=== PATIENT | male | born 1940 | race African-American/Black ===

== ENCOUNTER → 2017-07-17 | Outpatient (CLI) | payer MEDICARE, OTHER ==
--- NOTE | 2017-07-17 19:27 | US ---
EXAMINATION TYPE: US kidneys/renal and bladder DATE OF EXAM: 07/17/2017 COMPARISON: NONE CLINICAL HISTORY: R31.0 Gross hematuria x 2 episodes. EXAM MEASUREMENTS: Right Kidney: 8.8 x 4.9 x 3.1 cm Left Kidney: 9.2 x 4.8 x 5.3 cm Post Void Residual Volume: not assessed as patient was not aware of preparation Right Kidney: No hydronephrosis or masses seen Left Kidney: parallel hyperechoic foci in lower pole may indicate calcified vessel motta with posteri or shadowing Bladder: not prepped for assessment IMPRESSION: 1. Limited renal ultrasound appears without suspicious changes to account for hematuria. 2. Suspected vascular calcification left kidney. 3. Limitation due to preparation performed.
== END | disposition home or self-care (01) ==
LOC: RADUSWWP 09:39
PROVIDERS: ATTEND Urology
DX: R31.0 Gross hematuria (principal)
CPT/HCPCS: 76770

== ENCOUNTER 2019-06-03 11:47 | Inpatient (IN) | payer MEDICARE ==
[2019-06-03] MEDS ORDERED: cefTRIAXone IN SWFI 1,000 MG/10 ML SYRINGE IVP STA (12:28)
--- NOTE | 2019-06-03 12:33 | ED ---
General Adult HPI - General Chief complaint: Extremity Problem,Nontraumatic Stated complaint: foot infection Time Seen by Provider: 06/03/19 11:47 Source: patient, RN notes reviewed, old records reviewed Mode of arrival: ambulatory Limitations: no limitations - History of Present Illness Initial comments: This is a 78-year-old male who presents to emergency department complaining of a wound to the left first toe patient states about 3 weeks ago he dropped some plywood on it and since then it is not been healing. Patient states the pain is getting worse as well. Patient states he went to see Dr. Claros today and Dr. Claros sentiment wanted him to be admitted. Patient denies any fever or chills. Patient states the toe is more swollen there is a little blackness to the very tip of it and it is extremely tender to touch. Patient denies any other symptoms at this time. - Related Data Home Medications Medication Instructions Recorded Confirmed Meloxicam 15 mg PO DAILY 06/03/19 06/03/19 Allergies Allergy/AdvReac Type Severity Reaction Status Date / Time No Known Allergies Allergy Verified 06/03/19 12:46 Review of Systems ROS Statement: Those systems with pertinent positive or pertinent negative responses have been documented in the HPI. ROS Other: All systems not noted in ROS Statement are negative. Past Medical History Additional Past Medical History / Comment(s): Arthritis History of Any Multi-Drug Resistant Organisms: None Reported Past Surgical History: No Surgical Hx Reported Past Psychological History: No Psychological Hx Reported Smoking Status: Never smoker Past Alcohol Use History: Occasional Past Drug Use History: None Reported General Exam - General Exam Comments Initial Comments: GENERAL Patient is well-developed and well-nourished. Patient is in mild distress. EYES Patient's pupils are equal and round. Extraocular motion is intact SKIN Unremarkable NEURO The patient is alert and oriented 3 PYSCH Patient has normal interpersonal interactions. MUSCULOSKELETAL Patient's left first toe has a wound on the distal medial aspect of the toe there is a little eschar at the tip of the toe and the toe is red and extremely tender. Patient has good cap refill of the other toes. Limitations: no limitations Course Vital Signs 06/03/19 06/03/19 06/03/19 11:50 12:37 13:00 Temperature 97.4 F L 97.7 F Pulse Rate 72 70 72 Respiratory 20 17 15 Rate Blood Pressure 202/86 191/86 194/113 O2 Sat by Pulse 100 100 Oximetry 06/03/19 06/03/19 13:15 13:43 Temperature Pulse Rate 79 90 Respiratory 19 Rate Blood Pressure 180/76 172/82 O2 Sat by Pulse 98 Oximetry Medical Decision Making - Medical Decision Making Patient was given antibiotics for the infected toe. I spoke with Dr. Kendall agreed to admit the patient admitted the patient wrote admitting orders. - Lab Data Result diagrams: 06/03/19 12:56 06/03/19 12:56 Lab Results 06/03/19 06/03/19 06/03/19 Range/Units 12:56 12:56 12:56 WBC 8.4 (3.8-10.6) k/uL RBC 4.41 (4.30-5.90) m/uL Hgb 14.6 (13.0-17.5) gm/dL Hct 43.7 (39.0-53.0) % MCV 99.0 (80.0-100.0) fL MCH 33.0 (25.0-35.0) pg MCHC 33.3 (31.0-37.0) g/dL RDW 13.5 (11.5-15.5) % Plt Count 265 (150-450) k/uL Neutrophils % 66 % Lymphocytes % 19 % Monocytes % 6 % Eosinophils % 6 % Basophils % 1 % Neutrophils # 5.5 (1.3-7.7) k/uL Lymphocytes # 1.6 (1.0-4.8) k/uL Monocytes # 0.5 (0-1.0) k/uL Eosinophils # 0.5 (0-0.7) k/uL Basophils # 0.1 (0-0.2) k/uL PT 9.6 (9.0-12.0) sec INR 0.9 (<1.2) APTT 26.0 (22.0-30.0) sec Sodium 142 (137-145) mmol/L Potassium 5.4 H (3.5-5.1) mmol/L Chloride 110 H (98-107) mmol/L Carbon Dioxide 24 (22-30) mmol/L Anion Gap 8 mmol/L BUN 31 H (9-20) mg/dL Creatinine 1.45 H (0.66-1.25) mg/dL Est GFR (CKD-EPI)AfAm 53 (>60 ml/min/1.73 sqM) Est GFR (CKD-EPI)NonAf 46 (>60 ml/min/1.73 sqM) Glucose 97 (74-99) mg/dL Plasma Lactic Acid Varinder (0.7-2.0) mmol/L Calcium 9.8 (8.4-10.2) mg/dL Total Bilirubin 0.9 (0.2-1.3) mg/dL AST 21 (17-59) U/L ALT 16 (4-49) U/L Alkaline Phosphatase 84 (38-126) U/L Total Protein 8.4 H (6.3-8.2) g/dL Albumin 4.6 (3.5-5.0) g/dL 06/03/19 Range/Units 12:56 WBC (3.8-10.6) k/uL RBC (4.30-5.90) m/uL Hgb (13.0-17.5) gm/dL Hct (39.0-53.0) % MCV (80.0-100.0) fL MCH (25.0-35.0) pg MCHC (31.0-37.0) g/dL RDW (11.5-15.5) % Plt Count (150-450) k/uL Neutrophils % % Lymphocytes % % Monocytes % % Eosinophils % % Basophils % % Neutrophils # (1.3-7.7) k/uL Lymphocytes # (1.0-4.8) k/uL Monocytes # (0-1.0) k/uL Eosinophils # (0-0.7) k/uL Basophils # (0-0.2) k/uL PT (9.0-12.0) sec INR (<1.2) APTT (22.0-30.0) sec Sodium (137-145) mmol/L Potassium (3.5-5.1) mmol/L Chloride (98-107) mmol/L Carbon Dioxide (22-30) mmol/L Anion Gap mmol/L BUN (9-20) mg/dL Creatinine (0.66-1.25) mg/dL Est GFR (CKD-EPI)AfAm (>60 ml/min/1.73 sqM) Est GFR (CKD-EPI)NonAf (>60 ml/min/1.73 sqM) Glucose (74-99) mg/dL Plasma Lactic Acid Varinder 1.7 (0.7-2.0) mmol/L Calcium (8.4-10.2) mg/dL Total Bilirubin (0.2-1.3) mg/dL AST (17-59) U/L ALT (4-49) U/L Alkaline Phosphatase (38-126) U/L Total Protein (6.3-8.2) g/dL Albumin (3.5-5.0) g/dL Disposition Clinical Impression: Toe infection Disposition: ADMITTED IP TO THIS HOSP Referrals: Alexi Bailey MD [Primary Care Provider] - 1-2 days Time of Disposition: 13:50
[2019-06-03] MEDS ORDERED: hydrALAZINE HCL 20 MG/ML 1 ML VIAL IVP STA ×2 (12:39→13:23)
[2019-06-03 13:08] LABS: Basophils # (A) 0.1 k/uL (0-0.2); Basophils % (A) 1 %; Eosinophils # (A) 0.5 k/uL (0-0.7); Eosinophils % (A) 6 %; HCT 43.7 % (39.0-53.0); HGB 14.6 gm/dL (13.0-17.5); Lymphocytes # (A) 1.6 k/uL (1.0-4.8); Lymphocytes % (A) 19 %; MCHC 33.3 g/dL (31.0-37.0); Monocytes # (A) 0.5 k/uL (0-1.0); Monocytes % (A) 6 %; Neutrophils # (A) 5.5 k/uL (1.3-7.7); Neutrophils % (A) 66 %; Platelet Count 265 k/uL (150-450); RBC 4.41 m/uL (4.30-5.90); RDW 13.5 % (11.5-15.5); WBC 8.4 k/uL (3.8-10.6)
[2019-06-03 13:16] LABS: INR 0.9 (<1.2); Prothrombin Time 9.6 sec (9.0-12.0)
[2019-06-03 13:20] LABS: Albumin 4.6 g/dL (3.5-5.0); Calcium 9.8 mg/dL (8.4-10.2); Potassium 5.4 mmol/L (3.5-5.1); Total Bilirubin 0.9 mg/dL (0.2-1.3); Total Protein 8.4 g/dL (6.3-8.2)
[2019-06-03] MEDS ORDERED: HYDROmorphone 0.5 MG/0.5 ML SYRINGE IVP STA (13:23)
--- NOTE | 2019-06-03 13:33 | XR ---
EXAMINATION TYPE: XR toes LT DATE OF EXAM: 06/03/2019 COMPARISON: NONE HISTORY: First toe wound and swelling TECHNIQUE: 3 views submitted left first toe FINDINGS: There is a soft tissue irregularity suggestive of an ulceration. Cortical margins intact wi th no destructive change. No acute fracture. Arthropathy of the first MTP. IMPRESSION: 1. Soft tissue ulceration with no diagnostic evidence of osteomyelitis or fracture.
[2019-06-03] MEDS ORDERED: SODIUM CHLORIDE 0.9% 1,000 ML IV ONE (13:50)
[2019-06-03] MEDS ORDERED: VANCOMYCIN IV PER PHARMACY 1 EACH MISC MISCELLANE PRN (13:51)
[2019-06-03] MEDS ORDERED: VANCOMYCIN 1,250 MG in SODIUM CHLORIDE 0.9% 250 ML IVPB STA (13:56)
[2019-06-03 21:37] LABS: Hemoglobin A1C 6.1 % (4.0-6.0)
--- NOTE | 2019-06-03 22:02 | P.HPIM ---
History of Present Illness This is a pleasant 78 years old -[place] male with significant past medical history of arthritis, gout, status post stent to the left lower extremity about 10 years ago, never smoked, drinks alcohol daily. He is a patient of Dr. Keane. . He was sent by his scientific database curator Dr. Claros for infected wound secondary to trauma to his left big toe.patient's states about 3 weeks ago he had a trauma when a plywood fell on his foot and entered the tip of his first big toe, and gradually was getting more effected right and swollen with tenderness. also patient is complaining of from gout in his right first metatarsal tarsal joint, which is going on for 6 months on and off. He denies chest pain or dyspnea, no fever. No change in urine or bowel habits. No nausea vomiting. patient states he never smoked however he drinks about 3-4 ounces of whisky every night. No illicit drugs Vitas looks stable and temperature is 97.4. labs reviewed showing unremarkable CBC, INR, Liver enz, and BMP except increased creatinine to 1.4 , unknown baseline. pt was started on iv vanco and ceftriaxone, and normal saline at 75 ml/hr Review of Systems CONSTITUTIONAL: No fever, no malaise, no fatigue. HEENT: No recent visual problems or hearing problems. Denied any sore throat. CARDIOVASCULAR: No orthopnea, PND, no palpitations, no syncope. PULMONARY: No shortness of breath, no cough, no hemoptysis. GASTROINTESTINAL: No diarrhea, no nausea, no vomiting, no abdominal pain. Normoactive bowel sounds. NEUROLOGICAL: No headaches, no weakness, no numbness. HEMATOLOGICAL: Denies any bleeding or petechiae. GENITOURINARY: Denies any burning micturition, frequency, or urgency. MUSCULOSKELETAL/RHEUMATOLOGICAL: Denies any joint pain, swelling, or any muscle pain. ENDOCRINE: Denies any polyuria or polydipsia. Past Medical History Additional Past Medical History / Comment(s): Arthritis History of Any Multi-Drug Resistant Organisms: None Reported Past Surgical History: No Surgical Hx Reported Past Psychological History: No Psychological Hx Reported Smoking Status: Never smoker Past Alcohol Use History: Occasional Past Drug Use History: None Reported - Past Family History Father Family Medical History: Myocardial Infarction (AK) Additional Family Medical History / Comment(s): Father of a AK when pt was 7 yrs old. Pt cannot recall at what age his father . Mother Family Medical History: No Reported History Medications and Allergies Home Medications Medication Instructions Recorded Confirmed Type Meloxicam 15 mg PO DAILY 06/03/19 06/03/19 History Allergies Allergy/AdvReac Type Severity Reaction Status Date / Time No Known Allergies Allergy Verified 06/03/19 12:46 Physical Exam Vitals: Vital Signs Temp Pulse Resp BP Pulse Ox 06/03/19 11:50 97.4 F L 72 20 202/86 100 Intake and Output 06/02/19 06/03/19 06/03/19 22:59 06:59 14:59 Other: Weight 61.235 kg GENERAL: The patient is alert and oriented x3, not in any acute distress. Well developed, well nourished. HEENT: Pupils are round and equally reacting to light. EOMI. No scleral icterus. No conjunctival pallor. Normocephalic, atraumatic. No pharyngeal erythema. No thyromegaly. CARDIOVASCULAR: S1 and S2 present. No murmurs, rubs, or gallops. PULMONARY: Chest is clear to auscultation, no wheezing or crackles. ABDOMEN: Soft, nontender, nondistended, normoactive bowel sounds. No palpable organomegaly. MUSCULOSKELETAL: No joint swelling or deformity. EXTREMITIES: No cyanosis, clubbing, or pedal edema. Toes exam as below: - left big toe showing about 1 centimeter ulcer on the tip of the left toe with some purulent discharge and surrounding redness, swelling and tenderness. Not much more. -right foot showing slightly inflamed right first tarsometatarsal joint NEUROLOGICAL: Gross neurological examination did not reveal any focal deficits. SKIN: No rashes. No petechiae Results CBC & Chem 7: 06/03/19 12:56 06/03/19 12:56 Assessment and Plan Assessment: Left big toe infected ulcer secondary to trauma about 3 weeks ago Cellulitis of the distal medial left foot related to his ulcer Daily alcohol drinker at-risk of alcohol withdrawal DANA, unknown baseline Gout History of stent in his left lower extremity about 10 years ago as per patient Plan: This is a pleasant 78 years old male who presents with cellulitis and infected left first toe ulcer. Possible Dr. Claros, consult Dr. Caro from infectious disease. Continue with antibiotics as per ID team recommendation. Follow-up culture results. Pain management Labs and medication were reviewed.. Continue same treatment. Continue with symptomatic treatment. Resume home medication. Monitor lytes and vitals. DVT and GI prophylaxis. Further recommendations of the clinical course of the patient DVT prophylaxis: Subcutaneous heparin GI Prophylaxis: Pepcid PT/OT: Pending Prognosis is guarded
[2019-06-03] MEDS: METOPROLOL TARTRATE 12.5 MG TAB PO SCH (22:14)
[2019-06-03] MEDS: THIAMINE 100 MG TAB PO SCH (22:15)
--- NOTE | 2019-06-04 08:01 | P.PN ---
Subjective This is a pleasant 78 years old -[place] male with significant past medical history of arthritis, gout, status post stent to the left lower extremity about 10 years ago, never smoked, drinks alcohol daily. He is a patient of Dr. Keane. . He was sent by his developer prover upholstering Dr. Claros for infected wound secondary to trauma to his left big toe.patient's states about 3 weeks ago he had a trauma when a plywood fell on his foot and entered the tip of his first big toe, and gradually was getting more effected right and swollen with tenderness. also patient is complaining of from gout in his right first metatarsal tarsal joint, which is going on for 6 months on and off. He denies chest pain or dyspnea, no fever. No change in urine or bowel habits. No nausea vomiting. patient states he never smoked however he drinks about 3-4 ounces of whisky every night. No illicit drugs Vitas looks stable and temperature is 97.4. labs reviewed showing unremarkable CBC, INR, Liver enz, and BMP except increased creatinine to 1.4 , unknown baseli ne. pt was started on iv vanco and ceftriaxone, and normal saline at 75 ml/hr 06/04/2019 Patient is fully awake and oriented in bed, he states that he has less pain in his foot. He denies chest pain or dyspnea.no other problems. Vitas looks stable and patient is afebrile. His blood pressure is on the high side and antihypertensive. Yesterday his creatinine was elevated to 1.45, potassium 5.4. Unknown baseline creatinine and patient does not know if he has kidney problem. Patient also got contrast yesterday. We'll ask for cigar brander for further evaluation. Bladder scan yesterday was 300. Follow-up postvoid residual today. Podiatry and infectious disease were consult. review of systems CONSTITUTIONAL: No fever, no malaise, no fatigue. HEENT: No recent visual problems or hearing problems. Denied any sore throat. CARDIOVASCULAR: No orthopnea, PND, no palpitations, no syncope. PULMONARY: No shortness of breath, no cough, no hemoptysis. GASTROINTESTINAL: No diarrhea, no nausea, no vomiting, no abdominal pain. Normoactive bowel sounds. NEUROLOGICAL: No headaches, no weakness, no numbness. HEMATOLOGICAL: Denies any bleeding or petechiae. GENITOURINARY: Denies any burning micturition, frequency, or urgency. MUSCULOSKELETAL/RHEUMATOLOGICAL: Denies any joint pain, swelling, or any muscle pain. ENDOCRINE: Denies any polyuria or polydipsia. Objective - Vital Signs Vital signs: Vital Signs Temp 97.8 F 06/04/19 06:00 Pulse 72 06/04/19 06:00 Resp 20 06/04/19 06:00 BP 164/69 06/04/19 06:00 Pulse Ox 98 06/04/19 06:00 Intake & Output 06/03/19 06/04/19 06/04/19 18:59 06:59 18:59 Intake Total 250 Output Total 625 Balance 250 -625 Weight 61.235 kg Intake: IV 10 Invasive Line 1 10 Oral 240 Output: Urine 625 Other: Voiding Method Toilet Toilet Urinal Urinal - Exam GENERAL: The patient is alert and oriented x3, not in any acute distress. Well developed, well nourished. HEENT: Pupils are round and equally reacting to light. EOMI. No scleral icterus. No conjunctival pallor. Normocephalic, atraumatic. No pharyngeal erythema. No thyromegaly. CARDIOVASCULAR: S1 and S2 present. No murmurs, rubs, or gallops. PULMONARY: Chest is clear to auscultation, no wheezing or crackles. ABDOMEN: Soft, nontender, nondistended, normoactive bowel sounds. No palpable organomegaly. MUSCULOSKELETAL: No joint swelling or deformity. EXTREMITIES: No cyanosis, clubbing, or pedal edema. Toes exam as below: - left big toe showing about 1 centimeter ulcer on the tip of the left toe with some purulent discharge and surrounding redness, swelling and tenderness. Not much more. -right foot showing slightly inflamed right first tarsometatarsal joint NEUROLOGICAL: Gross neurological examination did not reveal any focal deficits. SKIN: No rashes. No petechiae - Labs CBC & Chem 7: 06/03/19 12:56 06/03/19 12:56 Labs: Abnormal Lab Results - Last 24 Hours (Table) 06/03/19 06/03/19 Range/Units 12:56 12:56 Potassium 5.4 H (3.5-5.1) mmol/L Chloride 110 H (98-107) mmol/L BUN 31 H (9-20) mg/dL Creatinine 1.45 H (0.66-1.25) mg/dL Hemoglobin A1c 6.1 H (4.0-6.0) % Total Protein 8.4 H (6.3-8.2) g/dL Assessment and Plan Assessment: Left big toe infected ulcer secondary to trauma about 3 weeks ago Cellulitis of the distal medial left foot related to his ulcer Daily alcohol drinker at-risk of alcohol withdrawal DANA, unknown baseline hyperkalemia, mild Gout History of stent in his left lower extremity about 10 years ago as per patient Plan: This is a pleasant 78 years old male who presents with cellulitis and infected left first toe ulcer. consults Dr. Claros, consult Dr. Caro from infectious disease. Continue with antibiotics as per ID team recommendation. Follow-up culture results. Pain management. Also last for consultation for nephrology as patient got contrast review of Versed kidney problem of high creatinine. Labs and medication were reviewed.. Continue same treatment. Continue with symptomatic treatment. Resume home medication. Monitor lytes and vitals. DVT and GI prophylaxis. Further recommendations of the clinical course of the patient DVT prophylaxis: Subcutaneous heparin GI Prophylaxis: Pepcid PT/OT: Pending Prognosis is guarded
[2019-06-04 08:19] LABS: Basophils # (A) 0.1 k/uL (0-0.2); Basophils % (A) 1 %; Eosinophils # (A) 0.4 k/uL (0-0.7); Eosinophils % (A) 6 %; HCT 42.3 % (39.0-53.0); HGB 13.6 gm/dL (13.0-17.5); Lymphocytes # (A) 1.3 k/uL (1.0-4.8); Lymphocytes % (A) 19 %; MCHC 32.1 g/dL (31.0-37.0); MCV 99.7 fL (80.0-100.0); Mean Platelet Volume 8.2; Monocytes # (A) 0.5 k/uL (0-1.0); Monocytes % (A) 8 %; Neutrophils # (A) 4.5 k/uL (1.3-7.7); Neutrophils % (A) 65 %; Platelet Count 265 k/uL (150-450); RBC 4.24 m/uL (4.30-5.90); RDW 13.6 % (11.5-15.5)
[2019-06-04 08:24] LABS: Potassium 4.9 mmol/L (3.5-5.1)
[2019-06-04] MEDS: METOPROLOL TARTRATE 12.5 MG TAB PO SCH ×2 (08:56→20:08)
[2019-06-04] MEDS: amLODIPine 5 MG TAB PO SCH (08:56)
[2019-06-04] MEDS: THIAMINE 100 MG TAB PO SCH (08:57)
[2019-06-04] MEDS: DEXTROSE 5%-0.9% NACL 1,000 ML IV SCH ×2 (08:57→20:08)
[2019-06-04] MEDS ORDERED: amLODIPine 2.5 MG TAB PO SCH (09:00)
[2019-06-04] MEDS: VANCOMYCIN 1,250 MG in SODIUM CHLORIDE 0.9% 250 ML IVPB SCH (10:46)
[2019-06-04 11:38] VITALS: BMI 18.8
--- NOTE | 2019-06-04 14:28 | P.CONS ---
History of Present Illness - Reason for Consult Consult date: 06/04/19 infected big toe ulcer - History of Present Illness This is a 78-year-old -[place] male who gives history that 3 weeks ago he dropped a board on his left great toe causing a wound and it "busted open." He denies having any fever or chills. He had an appointment with Dr. Claros for the first time regarding this wound and Dr. Claros sent him into the hospital for further evaluation and treatment. Patient was found to be afebrile, white count 7.0, BUN 23 and creatinine 1.34. Hemoglobin A1c 6.1, albumin 4.6. Total x-ray showed ulceration, no osteomyelitis or fracture. Patient has been started on Rocephin and vancomycin. Patient has history of stenting of the left lower extremity approximate 10 years ago. Review Of Systems: Constitutional: No fever, no chills, no night sweats. No weight change. No wea kness, fatigue or lethargy. No daytime sleepiness. EENT: No headache. No blurred vision or double vision, no loss of vision. No loss of Hearing, no ringing in the ears, no dizziness. No nasal drainage or congestion. No epistaxis. No sore throat. Lungs: No shortness of breath, cough, no sputum production. No wheezing. Cardiovascular: No chest pain, no lower extremity edema. No palpitations. No paroxysmal nocturnal dyspnea. No orthopnea. No lightheadedness or dizziness. No syncopal episodes. Abdominal: No abdominal pain. No nausea, vomiting. No diarrhea. No constipation. No bloody or tarry stools. No loss of appetite. Genitourinary: No dysuria, increased frequency, urgency. No urinary retention. Musculoskeletal: No myalgias. No muscle weakness, no gait dysfunction, no freq uent falls. No back pain. No neck pain. Integumentary: reports wounds, no lesions. No rash or pruritus. No unusual bruising. No change in hair or nails. Neurologic: No aphasia. No facial droop. No change in mentation. No head injury. No headache. No paralysis. No paresthesia. Psychiatric: No depression. No anxiety. No mood swings. Endocrine: No abnormal blood sugars. No weight change. No excessive sweating or thirst. No cold intolerance. Past Medical History Past Medical History: Memory Impairment, Osteoarthritis (OA), Vascular Disorder Additional Past Medical History / Comment(s): Arthritis History of Any Multi-Drug Resistant Organisms: None Reported Year Discovered:: 2008? MDRO Source:: L 5th toe Past Surgical History: No Surgical Hx Reported Additional Past Surgical History / Comment(s): Cystoscopy, L wrist injury with surgery, L knee open surgery for cartlidge repair, L leg stent done in [place], [place], bilateral cataracts removed. Past Anesthesia/Blood Transfusion Reactions: No Reported Reaction Past Psychological History: No Psychological Hx Reported Smoking Status: Former smoker Past Alcohol Use History: Occasional Additional Past Alcohol Use History / Comment(s): patient is a smoker one pack per day for 50 years and quit 10 years ago. He drinks 3 ounces of liquor every day. He lives in his own home and cares for his 2 grandsons. There are no pets in the home. He works in [employer]. He served in the in [employer]. No recent travel. Past Drug Use History: None Reported - Past Family History Father Family Medical History: Myocardial Infarction ([place]) Additional Family Medical History / Comment(s): Father of a [place] when pt was 7 yrs old. Pt cannot recall at what age his father . Mother Family Medical History: No Reported History Medications and Allergies Home Medications Medication Instructions Recorded Confirmed Type Meloxicam 15 mg PO DAILY 06/03/19 06/03/19 History Allergies Allergy/AdvReac Type Severity Reaction Status Date / Time No Known Allergies Allergy Verified 06/03/19 12:46 Physical Exam Vitals: Vital Signs Temp Pulse Pulse Resp BP BP Pulse Ox 06/04/19 06:00 97.8 F 72 20 164/69 98 06/03/19 21:32 97.7 F 88 15 165/76 98 06/03/19 16:00 17 06/03/19 14:58 98.6 F 96 19 156/69 95 06/03/19 14:52 98.6 F 96 156/69 96 Intake and Output 06/03/19 06/04/19 06/04/19 22:59 06:59 14:59 Intake Total 240 200 Output Total 250 375 Balance -10 -375 200 Intake: Oral 240 200 Output: Urine 250 375 Other: Voiding Method Toilet Urinal Weight 61.235 kg 61.235 kg Gen: This is a 78-year-old -[place] male. He is resting in bed and it and appears to be in no acute distress. HEENT: Head is atraumatic, normocephalic. Pupils equal, round. Sclerae is anicteric.oral mucous membranes are moist. Patient is edentulous. No thrush noted. NECK: Supple. No JVD. No lymphadenopathy. No thyromegaly. LUNGS: Clear to auscultation. No wheezes or rhonchi. No intercostal retractions. HEART: Regular rate and rhythm. No murmur. ABDOMEN: Soft. Bowel sounds are present. No masses. No tenderness. EXTREMITIES: No pedal edema. No calf tenderness.left great toe has large old ulcer on the distal area. Dorsalis pedis +2 bilaterally. NEUROLOGICAL: Patient is awake, alert and oriented x3. Cranial nerves 2 through 12 are grossly intact. Results Results: Laboratory Results WBC 7.0 k/uL (3.8-10.6) 06/04/19 07:33 RBC 4.24 m/uL (4.30-5.90) L 06/04/19 07:33 Hgb 13.6 gm/dL (13.0-17.5) 06/04/19 07:33 Hct 42.3 % (39.0-53.0) 06/04/19 07:33 MCV 99.7 fL (80.0-100.0) 06/04/19 07:33 MCH 32.0 pg (25.0-35.0) 06/04/19 07:33 MCHC 32.1 g/dL (31.0-37.0) 06/04/19 07:33 RDW 13.6 % (11.5-15.5) 06/04/19 07:33 Plt Count 265 k/uL (150-450) 06/04/19 07:33 Neutrophils % 65 % 06/04/19 07:33 Lymphocytes % 19 % 06/04/19 07:33 Monocytes % 8 % 06/04/19 07:33 Eosinophils % 6 % 06/04/19 07:33 Basophils % 1 % 06/04/19 07:33 Neutrophils # 4.5 k/uL (1.3-7.7) 06/04/19 07:33 Lymphocytes # 1.3 k/uL (1.0-4.8) 06/04/19 07:33 Monocytes # 0.5 k/uL (0-1.0) 06/04/19 07:33 Eosinophils # 0.4 k/uL (0-0.7) 06/04/19 07:33 Basophils # 0.1 k/uL (0-0.2) 06/04/19 07:33 PT 9.6 sec (9.0-12.0) 06/03/19 12:56 INR 0.9 (<1.2) 06/03/19 12:56 APTT 26.0 sec (22.0-30.0) 06/03/19 12:56 Sodium 140 mmol/L (137-145) 06/04/19 07:33 Potassium 4.9 mmol/L (3.5-5.1) 06/04/19 07:33 Chloride 110 mmol/L (98-107) H 06/04/19 07:33 Carbon Dioxide 22 mmol/L (22-30) 06/04/19 07:33 Anion Gap 8 mmol/L 06/04/19 07:33 BUN 23 mg/dL (9-20) H 06/04/19 07:33 Creatinine 1.34 mg/dL (0.66-1.25) H 06/04/19 07:33 Est GFR (CKD-EPI)AfAm 59 (>60 ml/min/1.73 sqM) 06/04/19 07:33 Est GFR (CKD-EPI)NonAf 51 (>60 ml/min/1.73 sqM) 06/04/19 07:33 Glucose 93 mg/dL (74-99) 06/04/19 07:[address] Glu mg/dL 128 06/03/19 12:56 Hemoglobin A1c 6.1 % (4.0-6.0) H 06/03/19 12:56 Plasma Lactic Acid Varinder 1.7 mmol/L (0.7-2.0) 06/03/19 12:56 Calcium 9.0 mg/dL (8.4-10.2) 06/04/19 07:33 Total Bilirubin 0.9 mg/dL (0.2-1.3) 06/03/19 12:56 AST 21 U/L (17-59) 06/03/19 12:56 ALT 16 U/L (4-49) 06/03/19 12:56 Alkaline Phosphatase 84 U/L (38-126) 06/03/19 12:56 Total Protein 8.4 g/dL (6.3-8.2) H 06/03/19 12:56 Albumin 4.6 g/dL (3.5-5.0) 06/03/19 12:56 CBC & Chem 7: 06/04/19 07:33 06/04/19 07:33 Labs: Abnormal Lab Results - Last 24 Hours (Table) 06/03/19 06/04/19 06/04/19 Range/Units 12:56 07:33 07:33 RBC 4.24 L (4.30-5.90) m/uL Chloride 110 H (98-107) mmol/L BUN 23 H (9-20) mg/dL Creatinine 1.34 H (0.66-1.25) mg/dL Hemoglobin A1c 6.1 H (4.0-6.0) % Assessment and Plan Plan: this is a 78-year-old -[place] male who presents to hospital with traumatic injury to the left great toe with ulceration. Plain film x-rays did not show any osteomyelitis or fracture. Bone scan will be ordered to rule out osteomyelitis. Patient is currently on Rocephin and vancomycin. Wound culture to be obtained if possible. Continue supportive care. Further recommendations as patient presses. The above dictated assessment and findings were discussed with Dr. Caro. The impression and plan of care have been directed as dictated. Melody Fuller nurse practitioner acting as scribe for Dr. Caro.
--- NOTE | 2019-06-04 15:59 | P.CON ---
Consult Note - . Consult date: 06/04/19 Assessment/Plan:: This is a 78-year-old -[place] male who gives history that 3 weeks ago he dropped a board on his left great toe causing a wound and it "busted open." He denies having any fever or chills. He had an appointment with Dr. Claros for the first time regarding this wound and Dr. Claros sent him into the hospital for further evaluation and treatment. Patient was found to be afebrile, white count 7.0, BUN 23 and creatinine 1.34. Hemoglobin A1c 6.1, albumin 4.6. Total x-ray showed ulceration, no osteomyelitis or fracture. Patient has been started on Rocephin and vancomycin. Patient has history of stenting of the left lower e xtremity approximate 10 years ago. please see the consult note as dictated by nurse practitioner Mrs. Melody Fuller. with pleasant 70-year-old male has a known history of some peripheral vascular disease with history of prior hector of the lower extremities when he was 7 years of age. He relates that he was working when he dropped a board onto his left great toe. Then after that he did suffer a fall where he had an abrasion to his left knee hurt the toe again. Because the abnormalities he did seek care and was sent to hospital for further evaluation. X-rays without fractu and is not able to elucidate osteomyelitis. However bone scan has been requested. Based on the history and by Local care will be utilized with therahoneywhich can be changed daily for now. Elevation of the foot rest is helpful. Arterial Dopplers will be requested to ensure that he has adequate flow. He may need vascular evaluation afterwards. Multivitamin with zinc is added in ensure adequate protein. I agree with evaluation, assessment and plan as dictated by nurse practitioner Mrs. Melody Fuller.
[2019-06-04] MEDS ORDERED: MULTIVITAMINS, THERA 1 EACH TAB PO SCH (16:15)
--- NOTE | 2019-06-04 17:14 | P.GSHP ---
History of Present Illness H&P Date: 06/04/19 Chief Complaint: avascular ulcer left hallux 78-year-old male seen at bedside today after review of chart. Was seen in my office yesterday for treatment of a partially avulsed left hallux with possible gangrenous changes distally. Patient drops of fluid on his foot proximally 3 weeks ago and suffered an injury. Since then the toe has been bleeding and has not healed. It is progressing into a painful swollen digit. Patient did see Dr. Patton for several weeks ago for peripheral arterial disease patient has what appears to be or runoff with an JAYA of 0.46 on the left lower extremity with possible profundus occlusion. This was the report from Dr. Patton's office at was available to me yesterday in my office. She was scheduled to see Dr. Patton for possible arteriogram later in the year. Due to the patient's clinical presentation and possible gangrenous changes left hallux she was told to go to emergency room for evaluation and admission. Purpose of this was to treat the underlying infection and limit any a vascular damage if possible. Past Medical History Past Medical History: Memory Impairment, Osteoarthritis (OA), Vascular Disorder Additional Past Medical History / Comment(s): Arthritis History of Any Multi-Drug Resistant Organisms: None Reported Date of last positivie culture/infection: 2008? MDRO Source:: L 5th toe Past Surgical History: No Surgical Hx Reported Additional Past Surgical History / Comment(s): Cystoscopy, L wrist injury with surgery, L knee open surgery for cartlidge repair, L leg stent done in [place], [place], bilateral cataracts removed. Past Anesthesia/Blood Transfusion Reactions: No Reported Reaction Past Psychological History: No Psychological Hx Reported Smoking Status: Former smoker Past Alcohol Use History: Occasional Additional Past Alcohol Use History / Comment(s): patient is a smoker one pack per day for 50 years and quit 10 years ago. He drinks 3 ounces of liquor every day. He lives in his own home and cares for his 2 grandsons. There are no pets in the home. He works in [employer]. He served in the in [employer]. No recent travel. Past Drug Use History: None Reported - Past Family History Father Family Medical History: Myocardial Infarction ([place]) Additional Family Medical History / Comment(s): Father of a [place] when pt was 7 yrs old. Pt cannot recall at what age his father . Mother Family Medical History: No Reported History Medications and Allergies Home Medications Medication Instructions Recorded Confirmed Type Meloxicam 15 mg PO DAILY 06/03/19 06/03/19 History Allergies Allergy/AdvReac Type Severity Reaction Status Date / Time No Known Allergies Allergy Verified 06/03/19 12:46 Surgical - Exam Vital Signs Temp Pulse Resp BP Pulse Ox 97.4 F L 72 20 202/86 100 06/03/19 11:50 06/03/19 11:50 06/03/19 11:50 06/03/19 11:50 06/03/19 11:50 - Cardiovascular pedal pulses diminished bilateral no digital hair - Integumentary full-thickness ulcer on the dorsum of the left hallux with edema erythema ext ending to the metatarsophalangeal joint. Patient has necrotic changes increasing since yesterday on the distal tip of his digit. - Musculoskeletal diminished range of motion ankle joint bilateral all inverters everters plantar flexors dorsiflexors grossly intact symmetrical bilateral Results - Labs 06/04/19 07:33 06/04/19 07:33 Abnormal Lab Results - Last 24 Hours (Table) 06/03/19 06/04/19 06/04/19 Range/Units 12:56 07:33 07:33 RBC 4.24 L (4.30-5.90) m/uL Chloride 110 H (98-107) mmol/L BUN 23 H (9-20) mg/dL Creatinine 1.34 H (0.66-1.25) mg/dL Hemoglobin A1c 6.1 H (4.0-6.0) % Microbiology - Last 24 Hours (Table) 06/03/19 12:56 Blood Culture - Preliminary Blood No Growth after 24 hours Diabetes panel 06/03/19 06/04/19 Range/Units 12:56 07:33 Sodium 140 (137-145) mmol/L Potassium 4.9 (3.5-5.1) mmol/L Chloride 110 H (98-107) mmol/L Carbon Dioxide 22 (22-30) mmol/L BUN 23 H (9-20) mg/dL Creatinine 1.34 H (0.66-1.25) mg/dL Glucose 93 (74-99) mg/dL Hemoglobin A1c 6.1 H (4.0-6.0) % Calcium 9.0 (8.4-10.2) mg/dL Calcium panel 06/04/19 Range/Units 07:33 Calcium 9.0 (8.4-10.2) mg/dL Pituitary panel 06/04/19 Range/Units 07:33 Sodium 140 (137-145) mmol/L Potassium 4.9 (3.5-5.1) mmol/L Chloride 110 H (98-107) mmol/L Carbon Dioxide 22 (22-30) mmol/L BUN 23 H (9-20) mg/dL Creatinine 1.34 H (0.66-1.25) mg/dL Glucose 93 (74-99) mg/dL Calcium 9.0 (8.4-10.2) mg/dL Adrenal panel 06/04/19 Range/Units 07:33 Sodium 140 (137-145) mmol/L Potassium 4.9 (3.5-5.1) mmol/L Chloride 110 H (98-107) mmol/L Carbon Dioxide 22 (22-30) mmol/L BUN 23 H (9-20) mg/dL Creatinine 1.34 H (0.66-1.25) mg/dL Glucose 93 (74-99) mg/dL Calcium 9.0 (8.4-10.2) mg/dL Assessment and Plan Assessment: non pressure ulcer left hallux with involvement of subcutaneous tissue Peripheral arterial disease with occlusive features left greater than right Plan: exam. After review of chart and discussing with patient we will begin local wound care with medical Honey in a dressing. Also suggest a consultation with vascular as patient does have positive occlusive disease on the left lower extremity per Dr. Patton's recent arterial studies. Agree with current IV treatment. With the consideration of possible occlusive disease to the left lower extremity the bone scan may not be of significant value at this time.
[2019-06-05] MEDS ORDERED: LORazepam 2 MG/ML INJ IV PRN ×3
[2019-06-05] MEDS: VANCOMYCIN 1,250 MG in SODIUM CHLORIDE 0.9% 250 ML IVPB SCH (08:03)
[2019-06-05] MEDS: MULTIVITAMINS, THERA 1 EACH TAB PO SCH (08:03)
[2019-06-05] MEDS: THIAMINE 100 MG TAB PO SCH (08:03)
[2019-06-05] MEDS: METOPROLOL TARTRATE 12.5 MG TAB PO SCH ×2 (08:03→20:03)
[2019-06-05] MEDS: amLODIPine 5 MG TAB PO SCH (08:03)
[2019-06-05 08:11] LABS: Basophils % (A) 1 %; Eosinophils # (A) 0.6 k/uL (0-0.7); Eosinophils % (A) 9 %; HCT 45.7 % (39.0-53.0); HGB 14.6 gm/dL (13.0-17.5); Lymphocytes # (A) 1.3 k/uL (1.0-4.8); Lymphocytes % (A) 19 %; MCV 100.1 fL (80.0-100.0); Mean Platelet Volume 8.1; Monocytes # (A) 0.5 k/uL (0-1.0); Monocytes % (A) 8 %; Neutrophils % (A) 61 %; Platelet Count 258 k/uL (150-450); RBC 4.57 m/uL (4.30-5.90); RDW 13.5 % (11.5-15.5); WBC 6.5 k/uL (3.8-10.6)
[2019-06-05 08:26] LABS: Calcium 9.3 mg/dL (8.4-10.2)
[2019-06-05 08:28] LABS: Potassium 5.1 mmol/L (3.5-5.1)
[2019-06-05] MEDS: DEXTROSE 5%-0.9% NACL 1,000 ML IV SCH ×2 (11:11→23:17)
--- NOTE | 2019-06-05 11:13 | NM ---
EXAMINATION TYPE: NM bone 3 phase DATE OF EXAM: 06/05/2019 COMPARISON: NONE HISTORY: Open wound on the left great toe. Triple phase bone scintigraphy was performed following the injection of 24.9 mCi Tc 99m MDP. Immedia te images and 3 hours post injection images acquired. FINDINGS: There is mild increased flow to the left foot. Pool images show some increased activity in the left g reat toe. Delayed static images show increased activity in the distal phalanges of both [address] on the left than the right. There is some mild increased activity in the first MTP joints bilater ally. IMPRESSION: I CANNOT EXCLUDE OSTEOMYELITIS OF THE DISTAL PHALANX OF THE LEFT GREAT TOE.
--- NOTE | 2019-06-05 11:27 | CONS ---
CONSULTATION REASON FOR CONSULT: Renal failure. HISTORY OF PRESENT ILLNESS: Patient is a 78-year-old male who was initially admitted to the hospital on 06/03/2019 for a wound on his left big toe. The patient follows up with Podiatry as outpatient. This was slowly getting worse with swelling and tenderness and pain. He denies any history of kidney diseases. His serum creatinine was 1.45 on admission, currently it is down to 1.15. No previous labs are available for comparison. At home, patient was taking meloxicam, which is now on hold. Currently, patient is maintained on ceftriaxone for antibiotics along with vancomycin. PAST MEDICAL HISTORY: Past medical history of osteoarthritis. PAST SURGICAL HISTORY: None. SOCIAL HISTORY: Negative for smoking, drug abuse or alcohol abuse. MEDICATIONS: Medications at home prior to admission include meloxicam. ALLERGIES: None. REVIEW OF SYSTEMS: As per HPI. Other systems negative. EXAMINATION: Patient is comfortable, awake, alert, oriented x3, not in any acute distress. Blood pressure is 170/83. Heart rate 70 per minute. He is afebrile. Examination of the heart S1, S2. Examination of the lungs, bilateral breath sounds are heard. ABDOMEN: Soft, nontender. Examination lower extremities shows no significant edema. Left foot is currently wrapped. LABS: Sodium 141, potassium 5.1, chloride 109, BUN 17, creatinine 1.15. ASSESSMENT: 1. Acute kidney injury appears to be secondary to non-steroidal anti-inflammatories, currently improved. Patient had been maintained on IV fluids which seems to have been discontinued now. 2. A left foot wound on the toe being maintained on antibiotics and being followed by ID. 3. Hypertension, blood pressure has been consistently elevated. Saline has been discontinued. Norvasc has been added appropriately. The blood pressure continues to remain elevated, increase Norvasc to 10 mg daily. Continue with the metoprolol as well. PLAN: Continue off IV fluids. Encourage increased oral intake. Increase Norvasc if blood pressure remains elevated. MMODL / IJN: [id number] /
[2019-06-05] MEDS ORDERED: amLODIPine 5 MG TAB PO STA (14:25)
--- NOTE | 2019-06-05 14:25 | P.PN ---
Subjective This is a pleasant 78 years old -[place] male with significant past medical history of arthritis, gout, status post stent to the left lower extremity about 10 years ago, never smoked, drinks alcohol daily. He is a patient of Dr. Keane. . He was sent by his siderographer Dr. Claros for infected wound secondary to trauma to his left big toe.patient's states about 3 weeks ago he had a trauma when a plywood fell on his foot and entered the tip of his first big toe, and gradually was getting more effected right and swollen with tenderness. also patient is complaining of from gout in his right first metatarsal tarsal joint, which is going on for 6 months on and off. He denies chest pain or dyspnea, no fever. No change in urine or bowel habits. No nausea vomiting. patient states he never smoked however he drinks about 3-4 ounces of whisky every night. No illicit drugs Vitas looks stable and temperature is 97.4. labs reviewed showing unremarkable CBC, INR, Liver enz, and BMP except increased creatinine to 1.4 , unknown baseli ne. pt was started on iv vanco and ceftriaxone, and normal saline at 75 ml/hr 06/04/2019 Patient is fully awake and oriented in bed, he states that he has less pain in his foot. He denies chest pain or dyspnea.no other problems. Vitas looks stable and patient is afebrile. His blood pressure is on the high side and antihypertensive. Yesterday his creatinine was elevated to 1.45, potassium 5.4. Unknown baseline creatinine and patient does not know if he has kidney problem. Patient also got contrast yesterday. We'll ask for information technology security analyst for further evaluation. Bladder scan yesterday was 300. Follow-up postvoid residual today. Podiatry and infectious disease were consult. 06/05/2019 Patient lying in bed comfortable, still receiving antibiotics for his foot with ceftriaxone and vancomycin as per infectious disease recommendation.vitals stable blood pressure on the high side. Infectious disease recommended bone scan. Creatinine back to normal.DC IV fluids Objective - Vital Signs Vital signs: Vital Signs Temp 97.5 F L 06/05/19 14:09 Pulse 76 06/05/19 14:09 Resp 16 06/05/19 14:09 BP 175/70 06/05/19 14:09 Pulse Ox 96 06/05/19 14:09 Intake & Output 06/04/19 06/05/19 06/05/19 18:59 06:59 18:59 Intake Total 200 350 200 Output Total 200 200 300 Balance 0 150 -100 Weight 61.235 kg Intake: Oral 200 350 200 Output: Urine 200 200 300 Other: Voiding Method Toilet Urinal # Voids 1 - Exam GENERAL: The patient is alert and oriented x3, not in any acute distress. Well developed, well nourished. HEENT: Pupils are round and equally reacting to light. EOMI. No scleral icterus. No conjunctival pallor. Normocephalic, atraumatic. No pharyngeal erythema. No thyromegaly. CARDIOVASCULAR: S1 and S2 present. No murmurs, rubs, or gallops. PULMONARY: Chest is clear to auscultation, no wheezing or crackles. ABDOMEN: Soft, nontender, nondistended, normoactive bowel sounds. No palpable organomegaly. MUSCULOSKELETAL: No joint swelling or deformity. EXTREMITIES: No cyanosis, clubbing, or pedal edema. Toes exam as below: - left big toe showing about 1 centimeter ulcer on the tip of the left toe with some purulent discharge and surrounding redness, swelling and tenderness. Not much more. -right foot showing slightly inflamed right first tarsometatarsal joint NEUROLOGICAL: Gross neurological examination did not reveal any focal deficits. SKIN: No rashes. No petechiae - Labs CBC & Chem 7: 06/05/19 08:00 06/05/19 08:00 Labs: Abnormal Lab Results - Last 24 Hours (Table) 06/05/19 06/05/19 Range/Units 08:00 08:00 MCV 100.1 H (80.0-100.0) fL Chloride 109 H (98-107) mmol/L Glucose 102 H (74-99) mg/dL Microbiology - Last 24 Hours (Table) 06/04/19 18:57 Gram Stain - Preliminary Toe - Left First Wound Culture - Preliminary 06/03/19 12:56 Blood Culture - Preliminary Blood No Growth after 24 hours Assessment and Plan Assessment: Left big toe infected ulcer secondary to trauma about 3 weeks ago Cellulitis of the distal medial left foot related to his ulcer Daily alcohol drinker at-risk of alcohol withdrawal DANA, unknown baseline hyperkalemia, mild Gout History of stent in his left lower extremity about 10 years ago as per patient Plan: This is a pleasant 78 years old male who presents with cellulitis and infected left first toe ulcer. consults Dr. Claros, consult Dr. Caro from infectious disease. Continue with antibiotics as per ID team recommendation. Follow-up culture results. Pain management. Also last for consultation for nephrology as patient got contrast review of Versed kidney problem of high creatinine. Labs and medication were reviewed.. Continue same treatment. Continue with symptomatic treatment. Resume home medication. Monitor lytes and vitals. DVT and GI prophylaxis. Further recommendations of the clinical course of the patient DVT prophylaxis: Subcutaneous heparin GI Prophylaxis: Pepcid PT/OT: Pending Prognosis is guarded
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
[2019-06-06] MEDS ORDERED: diphenhydrAMINE 25 MG CAP PO ONE (02:18)
[2019-06-06] MEDS ORDERED: diphenhydrAMINE 25 MG CAP ONE (02:27)
[2019-06-06 06:35] LABS: Calcium 9.7 mg/dL (8.4-10.2); Potassium 4.9 mmol/L (3.5-5.1)
--- NOTE | 2019-06-06 08:00 | CT ---
EXAMINATION TYPE: CT angio abd aorta w/Runoff DATE OF EXAM: 06/06/2019 COMPARISON: None. HISTORY: Left toe infection with left leg redness. CT DLP: 650.5 mGycm, Automated Exposure Control for Dose Reduction was Utilized. CONTRAST: CT scan of the abdomen and pelvis is performed with oral and with IV Contrast, patient injected with 125 mL of Isovue 370. FINDINGS: There is a small right-sided pleural effusion. Atelectatic change present at the lung bases . There is no pericardial fluid. Heart size upper limits of normal. The abdomen, the liver, spleen and gallbladder are normal. Both adrenal glands are normal. Both kidneys demonstrate function and appear morphologically normal. Pancreas is unremarkable There is no significant retroperitoneal, iliac or inguinal adenopathy. Bladder is unremarkable. There is no significant diverticular change and there is no radiographic evidence of diverticulitis. The appendix is not visualized with certainty. Small bowel loops are normal in caliber. There are several small ulcers in the distal thoracic aorta. A large and aortic hiatus is 4.3 mm In 2.6 mm deep. There are additional small ulcers in the abdominal aorta just above the level of the renal arteries. The largest on the right laterally and measures 1.2 cm in width and 3.5 mm in depth. The celiac, SMA and MERLIN vessels are patent. Both renal arteries are patent. Both the internal and external iliac artery are patent. The common femoral arteries are patent bilate rally. The profundus femoris artery is present bilaterally. There is attenuation of the left superfic ial femoral artery distally but remains patent. The popliteal arteries are patent. The right poplitea l artery is of greater caliber than the left. There is three-vessel runoff initially bilaterally.. It reconstitutes at the ankle. IMPRESSION: 1. 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 2. THREE-VESSEL RUNOFF INITIALLY, BILATERALLY WITH ATTENUATION OF THE ANTERIOR TIBIAL ARTERY ON THE L EFT WHICH IS RECONSTITUTED THE ANKLE. 3. RIGHT-SIDED PLEURAL EFFUSION.
[2019-06-06] MEDS: THIAMINE 100 MG TAB PO SCH (08:03)
[2019-06-06] MEDS: METOPROLOL TARTRATE 12.5 MG TAB PO SCH ×2 (08:03→19:56)
[2019-06-06] MEDS: amLODIPine 10 MG TAB PO SCH (08:04)
[2019-06-06] MEDS: MULTIVITAMINS, THERA 1 EACH TAB PO SCH (08:04)
--- NOTE | 2019-06-06 10:24 | US ---
EXAMINATION TYPE: US carotid duplex BILAT DATE OF EXAM: 06/06/2019 COMPARISON: NONE CLINICAL HISTORY: stenosis. stenosis EXAM MEASUREMENTS: RIGHT: Peak Systolic Velocity (PSV) cm/sec ----- Right CCA: 101.1 ----- Right ICA: 87.5 ----- Right ECA: 109.5 ICA/CCA ratio: 0.9 RIGHT: End Diastole cm/sec ----- Right CCA: 9.6 ----- Right ICA: 7.3 ----- Right ECA: 0.0 LEFT: Peak Systolic Velocity (PSV) cm/sec ----- Left CCA: 146.0 ----- Left ICA: 186.5 ----- Left ECA: 92.7 ICA/CCA ratio: 1.3 LEFT: End Diastole cm/sec ----- Left CCA: 13.3 ----- Left ICA: 26.8 ----- Left ECA: 0.0 VERTEBRALS (direction of flow): Right Vertebral: Antegrade Left Vertebral: Antegrade Rhythm: Normal Soft and heterogeneous plaque visualized bilaterally. Elevated velocities throughout left carotid s ystem. 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 Criteria for Assigning % of Stenosis / Diameter reduction (Estimation based on the indirect measurements of the internal carotid artery velocities (ICA PSV). 1. Normal (no stenosis)=ICA PSV < 125 cm/s: ratio < 2.0: ICA EDV<40 cm/s. 2. Less than 50% stenosis=ICA PSV < 125 cm/s: ratio < 2.0: ICA EDV<40 cm/s. 3. 50 to 69% stenosis=ICA PSV of 125 to 230 cm/s: ration 2.0 ? 4.0: ICA EDV 40-100 cm/s. 4. Greater than 70% stenosis to near occlusion= ICA PSV > 230 cm/s: ratio > 4.0: ICA EDV > 100 cm/s. 5. Near occlusion= ICA PSV velocities may be low or undetectable: variable ratio and ICA EDV. 6. Total occlusion=unable to detect flow.
[2019-06-06] MEDS ORDERED: VANCOMYCIN 1,250 MG in SODIUM CHLORIDE 0.9% 250 ML IVPB SCH ×3 (11:00)
[2019-06-06] MEDS: diphenhydrAMINE 25 MG CAP PO PRN ×2 (11:37→18:07)
--- NOTE | 2019-06-06 13:43 | P.PN ---
Subjective Progress Note Date: 06/06/19 patient is evaluated today in follow-up in reference to the left lower extremity occlusive disease and ischemic is of the left great toe. The patient voices no new complaints. I have had the opportunity review the CTA films. Physical examination remains essentially unchanged from previous. Review of the CTA films demonstrates both left iliac as well as superficial femoral artery occlusive disease. I believe this can be treated from a percutaneous approach. No urgency is noted at this time and the patient can be dismissed from my standpoint to be scheduled for outpatient angiogram/atherectomy.I tentatively will schedule this for June 09. This was discussed with Dr. Caro. I will reachout to Dr. Salinas Objective - Vital Signs Vital signs: Vital Signs Temp 98 F 06/06/19 04:40 Pulse 70 06/06/19 04:40 Resp 20 06/06/19 04:40 BP 175/82 06/06/19 04:40 Pulse Ox 98 06/06/19 04:40 Intake & Output 06/05/19 06/06/19 06/06/19 18:59 06:59 18:59 Intake Total 200 300 Output Total 300 500 Balance -100 -200 Intake: Oral 200 300 Output: Urine 300 500 Other: Voiding Method Toilet Toilet Urinal # Voids 1 - Labs CBC & Chem 7: 06/05/19 08:00 06/06/19 05:42 Labs: Abnormal Lab Results - Last 24 Hours (Table) 06/06/19 Range/Units 05:42 Chloride 109 H (98-107) mmol/L Microbiology - Last 24 Hours (Table) 06/04/19 18:57 Gram Stain - Preliminary Toe - Left First Wound Culture - Preliminary Gram Neg Bacilli Gram Neg Bacilli#2 06/03/19 12:56 Blood Culture - Preliminary Blood No Growth after 48 hours
--- NOTE | 2019-06-06 14:51 | P.PN ---
Subjective Progress Note Date: 06/06/19 This is a 78-year-old -Citizen Of [place] male who gives history that 3 weeks ago he dropped a board on his left great toe causing a wound and it "busted open." He denies having any fever or chills. He had an appointment with Dr. Claros for the first time regarding this wound and Dr. Claros sent him into the hospital for further evaluation and treatment. Patient was found to be afebrile, white count 7.0, BUN 23 and creatinine 1.34. Hemoglobin A1c 6.1, albumin 4.6. Total x-ray showed ulceration, no osteomyelitis or fracture. Patient has been started on Rocephin and vancomycin. Patient has history of stenting of the left lower extremity approximate 10 years ago. 06/05/2019 patient is feeling about the same. The patient has had anterior Doppler performed that shows evidence of the markedly diminished flow to the left lower extremity. This is the site of the injury to the left great toe. The bone scan does show asymmetric activity at the distal aspect of the left great toe. 06/06/2019 patient is feeling better. Angiography is been performing there is evidence of the extensive occlusive disease to the left leg with a low JAYA. He has been evaluated by Dr. Srinivasan and there are plans on for outpatient arthrectomy in balloon angioplasty and stenting. The patient is feeling rel atively well with no new acute difficulties. Objective - Vital Signs Vital signs: Vital Signs Temp 97.8 F 06/06/19 14:09 Pulse 76 06/06/19 14:09 Resp 18 06/06/19 14:09 BP 143/68 06/06/19 14:09 Pulse Ox 98 06/06/19 14:09 Intake & Output 06/05/19 06/06/19 06/06/19 18:59 06:59 18:59 Intake Total 200 300 300 Output Total 300 500 Balance -100 -200 300 Intake: Oral 200 300 300 Output: Urine 300 500 Other: Voiding Method Toilet Toilet Urinal # Voids 1 5 - Exam Gen: This is a 78-year-old -Citizen Of [place] male. He is resting in bed and it and appears to be in no acute distress. HEENT: Head is atraumatic, normocephalic. Pupils equal, round. Sclerae is anicteric.oral mucous membranes are moist. Patient is edentulous. No thrush noted. NECK: Supple. No JVD. No lymphadenopathy. No thyromegaly. LUNGS: Clear to auscultation. No wheezes or rhonchi. No intercostal retractions. HEART: Regular rate and rhythm. No murmur. ABDOMEN: Soft. Bowel sounds are present. No masses. No tenderness. EXTREMITIES: No pedal edema. No calf tenderness.left great toe has large ulcer on the distal area. Dorsalis pedis +2 bilaterally.results the abrasion to the left knee which is noninfected. NEUROLOGICAL: Patient is awake, alert and oriented x3. does have the significant decrease of his hearing - Labs CBC & Chem 7: 06/05/19 08:00 06/06/19 05:42 Labs: Abnormal Lab Results - Last 24 Hours (Table) 06/06/19 Range/Units 05:42 Chloride 109 H (98-107) mmol/L Microbiology - Last 24 Hours (Table) 06/04/19 18:57 Gram Stain - Preliminary Toe - Left First Wound Culture - Preliminary Gram Neg Bacilli Gram Neg Bacilli#2 06/03/19 12:56 Blood Culture - Preliminary Blood No Growth after 48 hours Laboratory Results WBC 6.5 k/uL (3.8-10.6) 06/05/19 08:00 RBC 4.57 m/uL (4.30-5.90) 06/05/19 08:00 Hgb 14.6 gm/dL (13.0-17.5) 06/05/19 08:00 Hct 45.7 % (39.0-53.0) 06/05/19 08:00 MCV 100.1 fL (80.0-100.0) H 06/05/19 08:00 MCH 32.0 pg (25.0-35.0) 06/05/19 08:00 MCHC 32.0 g/dL (31.0-37.0) 06/05/19 08:00 RDW 13.5 % (11.5-15.5) 06/05/19 08:00 Plt Count 258 k/uL (150-450) 06/05/19 08:00 Neutrophils % 61 % 06/05/19 08:00 Lymphocytes % 19 % 06/05/19 08:00 Monocytes % 8 % 06/05/19 08:00 Eosinophils % 9 % 06/05/19 08:00 Basophils % 1 % 06/05/19 08:00 Neutrophils # 4.0 k/uL (1.3-7.7) 06/05/19 08:00 Lymphocytes # 1.3 k/uL (1.0-4.8) 06/05/19 08:00 Monocytes # 0.5 k/uL (0-1.0) 06/05/19 08:00 Eosinophils # 0.6 k/uL (0-0.7) 06/05/19 08:00 Basophils # 0.0 k/uL (0-0.2) 06/05/19 08:00 PT 9.6 sec (9.0-12.0) 06/03/19 12:56 INR 0.9 (<1.2) 06/03/19 12:56 APTT 26.0 sec (22.0-30.0) 06/03/19 12:56 Sodium 139 mmol/L (137-145) 06/06/19 05:42 Potassium 4.9 mmol/L (3.5-5.1) 06/06/19 05:42 Chloride 109 mmol/L (98-107) H 06/06/19 05:42 Carbon Dioxide 24 mmol/L (22-30) 06/06/19 05:42 Anion Gap 6 mmol/L 06/06/19 05:42 BUN 16 mg/dL (9-20) 06/06/19 05:42 Creatinine 1.07 mg/dL (0.66-1.25) 06/06/19 05:42 Est GFR (CKD-EPI)AfAm 77 (>60 ml/min/1.73 sqM) 06/06/19 05:42 Est GFR (CKD-EPI)NonAf 67 (>60 ml/min/1.73 sqM) 06/06/19 05:42 Glucose 93 mg/dL (74-99) 06/06/19 05:[address] Glu mg/dL 128 06/03/19 12:56 Hemoglobin A1c 6.1 % (4.0-6.0) H 06/03/19 12:56 Plasma Lactic Acid Varinder 1.7 mmol/L (0.7-2.0) 06/03/19 12:56 Calcium 9.7 mg/dL (8.4-10.2) 06/06/19 05:42 Total Bilirubin 0.9 mg/dL (0.2-1.3) 06/03/19 12:56 AST 21 U/L (17-59) 06/03/19 12:56 ALT 16 U/L (4-49) 06/03/19 12:56 Alkaline Phosphatase 84 U/L (38-126) 06/03/19 12:56 Total Protein 8.4 g/dL (6.3-8.2) H 06/03/19 12:56 Albumin 4.6 g/dL (3.5-5.0) 06/03/19 12:56 Microbiology 06/04/19 18:57 Toe - Left First Gram Stain - Preliminary 06/04/19 18:57 Toe - Left First Wound Culture - Preliminary Gram Neg Bacilli Gram Neg Bacilli#2 06/03/19 12:56 Blood Blood Culture - Preliminary No Growth after 48 hours Assessment and Plan (1) Peripheral vascular disease of lower extremity with ulceration Current Visit: Yes Status: Acute Code(s): I73.9 - PERIPHERAL VASCULAR DISEASE, UNSPECIFIED; L97.909 - NON-PRS CHRONIC ULC UNSP PRT OF UNSP LOW LEG W UNSP SEVERITY SNOMED Code(s): 522204343 (2) Osteomyelitis Narrative/Plan: 78 -year-old male known history of some peripheral vascular disease with history of prior hector of the lower extremities when he was 7 years of age. He relates that he was working when he dropped a board onto his left great toe. Then after that he did suffer a fall where he had an abrasion to his left knee hurt the toe again. Because the abnormalities he did seek care and was sent to hospital for further evaluation. X-rays without fractu and is not able to elucidate osteomyelitis. However bone scan has been requested. Based on the history and by Local care will be utilized with therahoney which can be changed daily for now. Elevation of the foot rest is helpful. Arterial Dopplers will be requested to ensure that he has adequate flow. He may need vascular evaluation afterwards. Multivitamin with zinc is added in ensure adequate protein. 06/05/2019 patient is feeling about the same. There is notation that the bone scan is abnormal. He is tolerating the therahoney to the ulceration without difficulty. Cultures are pending. There is evidence of the markedly diminished ABIs the left lower extremity and a vascular consult has been requested awaiting their input. The patient may need debridement of that left great toe however with a very low blood flow is of great concern. antibiotic therapy continues with Rocephin for now until the culture results are available. 06/06/2019 the patient is showing some improvement. He will need outpatient vascular intervention which is being planned for with appears to be arthrectomy and stenting. Hopefully with improved blood flow we'll see some improvement to that left great toe ulceration. Antibiotic therapy will be switched to oral cefuroxime at the time of his discharge. I believe patient will be following in wound center determine her next options after his vascular procedures. Wound care is with honey product here will be continued at home. Current Visit: Yes Status: Acute Code(s): M86.9 - OSTEOMYELITIS, UNSPECIFIED SNOMED Code(s): 93697084 (3) Toe infection Current Visit: Yes Status: Acute Code(s): L08.9 - LOCAL INFECTION OF THE SKIN AND SUBCUTANEOUS TISSUE, UNSP SNOMED Code(s): 728558291
[2019-06-06] MEDS: DEXTROSE 5%-0.9% NACL 1,000 ML IV SCH (14:56)
--- NOTE | 2019-06-06 16:50 | P.PN ---
Subjective This is a pleasant 78 years old -[place] male with significant past medical history of arthritis, gout, status post stent to the left lower extremity about 10 years ago, never smoked, drinks alcohol daily. He is a patient of Dr. Keane. . He was sent by his log deckman Dr. Claros for infected wound secondary to trauma to his left big toe.patient's states about 3 weeks ago he had a trauma when a plywood fell on his foot and entered the tip of his first big toe, and gradually was getting more effected right and swollen with tenderness. also patient is complaining of from gout in his right first metatarsal tarsal joint, which is going on for 6 months on and off. He denies chest pain or dyspnea, no fever. No change in urine or bowel habits. No nausea vomiting. patient states he never smoked however he drinks about 3-4 ounces of whisky every night. No illicit drugs Vitas looks stable and temperature is 97.4. labs reviewed showing unremarkable CBC, INR, Liver enz, and BMP except increased creatinine to 1.4 , unknown baseli ne. pt was started on iv vanco and ceftriaxone, and normal saline at 75 ml/hr 06/04/2019 Patient is fully awake and oriented in bed, he states that he has less pain in his foot. He denies chest pain or dyspnea.no other problems. Vitas looks stable and patient is afebrile. His blood pressure is on the high side and antihypertensive. Yesterday his creatinine was elevated to 1.45, potassium 5.4. Unknown baseline creatinine and patient does not know if he has kidney problem. Patient also got contrast yesterday. We'll ask for transformation consultant for further evaluation. Bladder scan yesterday was 300. Follow-up postvoid residual today. Podiatry and infectious disease were consult. 06/05/2019 Patient lying in bed comfortable, still receiving antibiotics for his foot with ceftriaxone and vancomycin as per infectious disease recommendation.vitals stable blood pressure on the high side. Infectious disease recommended bone scan. Creatinine back to normal.DC IV fluids 12/05/2018 Patient lying in comfortable. No new complaints. no Leukocytosis and no fever however once culture is growing gram-negative bacilli and final result is pending. CTA is showing left iliac and superficial femoral artery occlusive disease, I discussed the case with Dr. Srinivasan, and they cleared the patient for discharge and he is going to finish workup and management as an outpatient for possible atherectomy and stenting as patient looks like has significant peripheral vascular disease Dr. Caro recommended cefuroxime oral antibiotics upon discharge and once center follow-up he needs to follow up With Dr. Srinivasan mostly on June 09 I told the patient and he agrees Objective - Vital Signs Vital signs: Vital Signs Temp 97.8 F 06/06/19 14:09 Pulse 76 06/06/19 14:09 Resp 18 06/06/19 14:09 BP 143/68 06/06/19 14:09 Pulse Ox 98 06/06/19 14:09 Intake & Output 06/05/19 06/06/19 06/06/19 18:59 06:59 18:59 Intake Total 200 300 300 Output Total 300 500 100 Balance -100 -200 200 Intake: Oral 200 300 300 Output: Urine 300 500 Post Void Residual 100 Other: Voiding Method Toilet Toilet Urinal # Voids 1 5 - Exam GENERAL: The patient is alert and oriented x3, not in any acute distress. Well developed, well nourished. HEENT: Pupils are round and equally reacting to light. EOMI. No scleral icterus. No conjunctival pallor. Normocephalic, atraumatic. No pharyngeal erythema. No thyromegaly. CARDIOVASCULAR: S1 and S2 present. No murmurs, rubs, or gallops. PULMONARY: Chest is clear to auscultation, no wheezing or crackles. ABDOMEN: Soft, nontender, nondistended, normoactive bowel sounds. No palpable organomegaly. MUSCULOSKELETAL: No joint swelling or deformity. EXTREMITIES: No cyanosis, clubbing, or pedal edema. Toes exam as below: - left big toe showing about 1 centimeter ulcer on the tip of the left toe with some purulent discharge and surrounding redness, swelling and tenderness. Not much more. -right foot showing slightly inflamed right first tarsometatarsal joint NEUROLOGICAL: Gross neurological examination did not reveal any focal deficits. SKIN: No rashes. No petechiae - Labs CBC & Chem 7: 06/05/19 08:00 06/06/19 05:42 Labs: Abnormal Lab Results - Last 24 Hours (Table) 06/06/19 Range/Units 05:42 Chloride 109 H (98-107) mmol/L Microbiology - Last 24 Hours (Table) 06/03/19 12:56 Blood Culture - Preliminary Blood No Growth after 72 hours 06/04/19 18:57 Gram Stain - Preliminary Toe - Left First Wound Culture - Preliminary Gram Neg Bacilli Gram Neg Bacilli#2 Assessment and Plan Assessment: Left big toe infected ulcer secondary to trauma about 3 weeks ago Cellulitis of the distal medial left foot related to his ulcer Daily alcohol drinker at-risk of alcohol withdrawal DANA, unknown baseline hyperkalemia, mild Gout History of stent in his left lower extremity about 10 years ago as per patient Plan: This is a pleasant 78 years old male who presents with cellulitis and infected left first toe ulcer. consults Dr. Claros, consult Dr. Caro from infectious disease. Continue with antibiotics as per ID team recommendation. Follow-up culture results. Pain management. Also last for consultation for nephrology as patient got contrast review of Versed kidney problem of high creatinine.finish workup as an outpatient for possible atherectomy with Dr. Srinivasan , also up with the wound center as an outpatient Labs and medication were reviewed.. Continue same treatment. Continue with symptomatic treatment. Resume home medication. Monitor lytes and vitals. DVT and GI prophylaxis. Further recommendations of the clinical course of the patient DVT prophylaxis: Subcutaneous heparin GI Prophylaxis: Pepcid PT/OT: Pending Prognosis is guarded
[2019-06-06] MEDS: TAMSULOSIN 0.4 MG CAP.ER.24H PO SCH (17:31)
[2019-06-07] MEDS: diphenhydrAMINE 25 MG CAP PO PRN ×2 (00:56→14:10)
[2019-06-07] MEDS: amLODIPine 10 MG TAB PO SCH (08:03)
[2019-06-07] MEDS: THIAMINE 100 MG TAB PO SCH (08:03)
[2019-06-07] MEDS: METOPROLOL TARTRATE 12.5 MG TAB PO SCH (08:04)
[2019-06-07] MEDS: MULTIVITAMINS, THERA 1 EACH TAB PO SCH (08:04)
[2019-06-07] MEDS: HYDROcodone/APAP 5-325MG 1 EACH TAB PO PRN ×2 (08:05→14:10)
[2019-06-07] MEDS ORDERED: VANCOMYCIN TROUGH DUE 1 EACH MISC MISCELLANE ONE (10:00)
--- NOTE | 2019-06-07 10:01 | P.PN ---
Subjective Patient is seen in follow-up for acute kidney injury. Renal function has improved since admission. Creatinine 1.07 as of yesterday. Oral intake is good. He has been voiding. No vomiting or diarrhea. He is receiving IV fluids. Vital signs are stable. General: The patient appeared well nourished and normally developed. HEENT: Head exam is unremarkable. Neck is without jugular venous distension. LUNGS: Lungs are clear to auscultation and percussion. Breath sounds decreased. HEART: Rate and Rhythm are regular. First and second heart sounds normal. No murmurs, rubs or gallops. ABDOMEN: Abdominal exam reveals normal bowel sounds. Non-tender and non- distended. No evidence of peritonitis. EXTREMITITES: No clubbing, cyanosis, or edema. No obvious drainage noted. Objective - Vital Signs Vital signs: Vital Signs Temp 97.8 F 06/07/19 05:17 Pulse 82 06/07/19 05:17 Resp 15 06/07/19 05:17 BP 147/79 06/07/19 05:17 Pulse Ox 98 06/06/19 21:01 Intake & Output 06/06/19 06/07/19 06/07/19 18:59 06:59 18:59 Intake Total 300 240 Output Total 300 802 Balance 0 -802 240 Intake: Oral 300 240 Output: Urine 200 400 Post Void Residual 100 402 Other: Voiding Method Toilet Toilet Toilet Urinal Urinal # Voids 1 1 # Bowel Movements 1 - Labs CBC & Chem 7: 06/05/19 08:00 06/06/19 05:42 Labs: Microbiology - Last 24 Hours (Table) 06/04/19 18:57 Gram Stain - Final Toe - Left First Wound Culture - Final Pseudomonas aeruginosa Serratia liquefaciens 06/03/19 12:56 Blood Culture - Preliminary Blood No Growth after 72 hours Assessment and Plan Plan: Assessment: 1. Acute kidney injury mostly prerenal secondary to nonsteroidals, improved with IV hydration. Creatinine 1.07 as of yesterday. 2. Left toe wound maintained on antibiotics per infectious disease. 3. Peripheral vascular disease scheduled for outpatient arthrectomy and balloon angioplasty on . 4. Benign hypertension. Controlled. Plan: Hep-Lock IV fluids. Avoid nephrotoxins. Continue to monitor renal function and urine output. Patient did receive IV contrast dye and June 06.
[2019-06-07 15:06] VITALS: BP 131/65; PULSE 57; RESP 16; TEMP 98.1
--- NOTE | 2019-06-07 15:22 | P.PN ---
Subjective Progress Note Date: 06/07/19 Patient seen and evaluated lying in bed. Patient has left great toe wound with a dressing clean dry and intact. Patient remains afebrile, pain is well controlled. Denies any chest pain or shortness of breath. Infectious disease continues to follow patient for wound management. Doppler study and CTA show significant arterial occlusive disease. Patient states plan for outpatient angiogram with Dr. Low on June 09. Objective - Vital Signs Vital signs: Vital Signs Temp 97.8 F 06/07/19 05:17 Pulse 82 06/07/19 05:17 Resp 15 06/07/19 05:17 BP 147/79 06/07/19 05:17 Pulse Ox 98 06/06/19 21:01 Intake & Output 06/06/19 06/07/19 06/07/19 18:59 06:59 18:59 Intake Total 300 480 Output Total 300 802 Balance 0 -802 480 Intake: Oral 300 480 Output: Urine 200 400 Post Void Residual 100 402 Other: Voiding Method Toilet Toilet Toilet Urinal Urinal # Voids 1 1 4 # Bowel Movements 1 - Exam General appearance: The patient is alert, oriented, in no acute distress. HET: Head is normocephalic and atraumatic. Heart: S1 S2. Regular rate and rhythm. Lungs: No crackles or wheezes are heard. Abdomen: Soft, nontender, nondistended with bowel sounds. Extremities: Normal skin color and turgor. Femoral pulses intact bilaterally, popliteal, DP and PT pulses are absent. No edema bilaterally. Neurological: No focal deficits. - Labs CBC & Chem 7: 06/05/19 08:00 06/07/19 09:54 Labs: Abnormal Lab Results - Last 24 Hours (Table) 06/07/19 Range/Units 09:54 Creatinine 1.27 H (0.66-1.25) mg/dL Microbiology - Last 24 Hours (Table) 06/04/19 18:57 Gram Stain - Final Toe - Left First Wound Culture - Final Pseudomonas aeruginosa Serratia liquefaciens 06/03/19 12:56 Blood Culture - Preliminary Blood No Growth after 72 hours Assessment and Plan Assessment: left iliac and superical femoral arterial occlusive disease with a nonhealing ulceration of the left great toe history of tobacco use acute kidney injury on chronic kidney disease, nephrology on consult, kidney function improving Plan: Patient remains stable at this time. As discussed with patient from Dr. Borrego yesterday, plan is for outpatient angiogram/arthrectomy, which is tentatively scheduled for 06/09/2019. Continue wound treatment and antibiotics as directed by infectious disease/wound care. Continue with recommendations by nephrology. The above dictated assessment and findings were discussed with Dr. Rodriguez. The impression and plan of care have been directed as dictated.
[2019-06-07] MEDS ORDERED: methylPREDNISolone SOD SUCCI 40 MG/ML 1 ML VIAL IV STA (15:53)
[2019-06-07] MEDS ORDERED: TRIAMCINOLONE 0.1% CREAM 80 GM TUBE TOPICAL SCH (16:00)
[2019-06-07] MEDS: TAMSULOSIN 0.4 MG CAP.ER.24H PO SCH (16:59)
--- NOTE | 2019-06-07 19:30 | P.DS ---
Providers Date of admission: 06/05/19 13:31 Expected date of discharge: 06/07/19 Attending physician: Home Salinas MD Consults: 06/03/19 12:46 Consult Physician Urgent Consulting Provider: Roberto Caro Consult Reason/Comments: Infected big toe ulcer Do you want consulting provider notified?: Yes 06/03/19 13:51 Consult Physician Urgent Consulting Provider: Martinez Claros Consult Reason/Comments: Left first toe infection Do you want consulting provider notified?: Yes 06/03/19 20:48 Consult Physician Urgent Consulting Provider: Stanislav Espinoza Consult Reason/Comments: arden Do you want consulting provider notified?: Yes 06/04/19 17:33 Consult Physician Urgent Consulting Provider: Bam Jimenez Consult Reason/Comments: Has occlusive disease on left LE, right great toe wound. Do you want consulting provider notified?: Yes Primary care physician: Lynn [facility]ford [facility] Course: Final diagnosis Left big toe infected ulcer secondary to trauma Cellulitis of the distal medial left foot related to his ulcer Daily alcohol drinker at-risk of alcohol withdrawal [place], unknown baseline hyperkalemia, mild Gout History of stent in his left lower extremity Discharge disposition Patient is being discharge in a stable condition with a guarded prognosis to home and will follow up with Dr. Bailey upon discharge. Patient will also follow up with Dr. Borrego in the outpatient setting on . Patient will continue with a short course of oral Cipro twice daily for the next 10 days. Total time taken is 35 minutes. History of present illness This is a 78 year old male who was recently admitted for left great toe ulcer infection status post trauma approximately 3 weeks ago and worsening and was being closely monitored. Infectious disease and vascular surgery evaluated the patient and patient was started on IV antibiotic therapy in the form of rocephin and vancomycin. Wound cultures finalized showing pseudomonas aeruginosa and serratia liquefaciens which is sensitive to cipro and patient will continue on a short course of oral cipro 500mg twice daily for the next 10 days. During hospitalization patient underwent CTA showing left iliac and superficial femoral artery occlusive disease and will be following up with Dr. Borrego in the outpatient setting this . Patient will also follow up with Dr. Bailey upon discharge. Patient does have a history of gout and is having tenderness and pain in the right foot. Creatinine slightly elevated at 1.27 and will need repeat labs in 2-3 days to monitor this. During hospitalization patient began exp eriencing some itching and rash on the abdomen and upper extremities and was given benadryl. Patient will continue this in the outpatient setting as well. The rash started shortly after IV ceftriaxone was given. Discussed with the patient at length about avoiding all alcohol use. Patient verbalized understanding. Patient sees Dr. Claros podiatry in the outpatient setting as well. Currently patients condition is stable and would like to go home. Patient denies any chest pain, palpitations, or shortness of breath. Patient is afebrile. Patient denies any nausea or vomiting and is tolerating diet. Guarded prognosis. On exam, vital signs are stable. Temp is 98.1 F, pulse is 57, resp are 16, blood pressure is 131/65, and 02 is 97% on room air. Cardio S1, S2 are present. Respiratory shows clear to auscultation. Abdomen is soft, thin, and non-tender. Nervous system shows no focal deficits. Please refer to medication reconciliation sheet for a list of medications. Patient Condition at Discharge: Stable Plan - Discharge Summary Discharge Rx Participant: No New Discharge Prescriptions: New Ciprofloxacin HCl [Cipro] 500 mg PO Q12HR #20 tablet diphenhydrAMINE HCL [Benadryl] 25 mg PO HS #15 tab No Action Meloxicam 15 mg PO DAILY Discharge Medication List Meloxicam 15 mg PO DAILY 06/03/19 [History] Ciprofloxacin HCl [Cipro] 500 mg PO Q12HR #20 tablet 06/07/19 [Rx] diphenhydrAMINE HCL [Benadryl] 25 mg PO HS #15 tab 06/07/19 [Rx] Follow up Appointment(s)/Referral(s): Alexi Bailey MD [Primary Care Provider] - 1-2 days Jonathan Borrego DO [Doctor of Osteopathic Medicine] - 1 Week () Patient Instructions/Handouts: Peripheral Vascular Disease (DC) Activity/Diet/Wound Care/Special Instructions: Dr. Borrego wants to see the patient as an outpatient on June 09. Please call the office to confirm appointment Continue current diet follow up with primary care provider upon discharge continue antibiotics until finished Discharge Disposition: HOME SELF-CARE
[2019-06-07] MEDS ORDERED: CIPROFLOXACIN HCL 500 MG TAB PO SCH (21:00)
--- NOTE | 2019-06-07 23:18 | P.PN ---
Subjective Progress Note Date: 06/07/19 This is a 78-year-old -[place] male who gives history that 3 weeks ago he dropped a board on his left great toe causing a wound and it "busted open." He denies having any fever or chills. He had an appointment with Dr. Claros for the first time regarding this wound and Dr. Claros sent him into the hospital for further evaluation and treatment. Patient was found to be afebrile, white count 7.0, BUN 23 and creatinine 1.34. Hemoglobin A1c 6.1, albumin 4.6. Total x-ray showed ulceration, no osteomyelitis or fracture. Patient has been started on Rocephin and vancomycin. Patient has history of stenting of the left lower extremity approximate 10 years ago. 06/05/2019 patient is feeling about the same. The patient has had anterior Doppler performed that shows evidence of the markedly diminished flow to the left lower extremity. This is the site of the injury to the left great toe. The bone scan does show asymmetric activity at the distal aspect of the left great toe. 06/06/2019 patient is feeling better. Angiography is been performing there is evidence of the extensive occlusive disease to the left leg with a low JAYA. He has been evaluated by Dr. Srinivasan and there are plans on for outpatient arthrectomy in balloon angioplasty and stenting. The patient is feeling rel atively well with no new acute difficulties. 06/07/2019 the patient is now developed a significant erythematous rash that is pruritic and discomforting especially to his chest flanks and back. He is to believe he has a fever but does feel poorly. The rash started around the time that the Rocephin started it was already occurring before his CT angiography was performed. Objective - Vital Signs Vital signs: Vital Signs Temp 98.1 F 06/07/19 14:20 Pulse 57 L 06/07/19 14:20 Resp 16 06/07/19 14:20 BP 131/65 06/07/19 14:20 Pulse Ox 97 06/07/19 14:20 Intake & Output 06/07/19 06/07/19 06/08/19 06:59 18:59 06:59 Intake Total 480 Output Total 802 Balance -802 480 Intake: Oral 480 Output: Urine 400 Post Void Residual 402 Other: Voiding Method Toilet Toilet Urinal Urinal # Voids 1 4 # Bowel Movements 1 - Exam Gen: This is a 78-year-old -[place] male. He is resting in bed and it and appears to be in no acute distress. HEENT: Head is atraumatic, normocephalic. Pupils equal, round. Sclerae is a nicteric.oral mucous membranes are moist. Patient is edentulous. No thrush noted. NECK: Supple. No JVD. No lymphadenopathy. No thyromegaly. LUNGS: Clear to auscultation. No wheezes or rhonchi. No intercostal retractions. HEART: Regular rate and rhythm. No murmur. ABDOMEN: Soft. Bowel sounds are present. No masses. No tenderness. EXTREMITIES: No pedal edema. No calf tenderness.left great toe has large ulcer on the distal area. Dorsalis pedis +2 bilaterally.results the abrasion to the left knee which is noninfected. the skin reveals evidence of the somewhat maculopapular rash of the trunk chest and flanks. Face and arms and legs are somewh NEUROLOGICAL: Patient is awake, alert and oriented x3. does have the significant decrease of his hearing - Labs CBC & Chem 7: 06/05/19 08:00 06/07/19 09:54 Labs: Abnormal Lab Results - Last 24 Hours (Table) 06/07/19 Range/Units 09:54 Creatinine 1.27 H (0.66-1.25) mg/dL Microbiology - Last 24 Hours (Table) 06/03/19 12:56 Blood Culture - Preliminary Blood No Growth after 96 hours 06/04/19 18:57 Gram Stain - Final Toe - Left First Wound Culture - Final Pseudomonas aeruginosa Serratia liquefaciens Laboratory Results WBC 6.5 k/uL (3.8-10.6) 06/05/19 08:00 RBC 4.57 m/uL (4.30-5.90) 06/05/19 08:00 Hgb 14.6 gm/dL (13.0-17.5) 06/05/19 08:00 Hct 45.7 % (39.0-53.0) 06/05/19 08:00 MCV 100.1 fL (80.0-100.0) H 06/05/19 08:00 MCH 32.0 pg (25.0-35.0) 06/05/19 08:00 MCHC 32.0 g/dL (31.0-37.0) 06/05/19 08:00 RDW 13.5 % (11.5-15.5) 06/05/19 08:00 Plt Count 258 k/uL (150-450) 06/05/19 08:00 Neutrophils % 61 % 06/05/19 08:00 Lymphocytes % 19 % 06/05/19 08:00 Monocytes % 8 % 06/05/19 08:00 Eosinophils % 9 % 06/05/19 08:00 Basophils % 1 % 06/05/19 08:00 Neutrophils # 4.0 k/uL (1.3-7.7) 06/05/19 08:00 Lymphocytes # 1.3 k/uL (1.0-4.8) 06/05/19 08:00 Monocytes # 0.5 k/uL (0-1.0) 06/05/19 08:00 Eosinophils # 0.6 k/uL (0-0.7) 06/05/19 08:00 Basophils # 0.0 k/uL (0-0.2) 06/05/19 08:00 PT 9.6 sec (9.0-12.0) 06/03/19 12:56 INR 0.9 (<1.2) 06/03/19 12:56 APTT 26.0 sec (22.0-30.0) 06/03/19 12:56 Sodium 139 mmol/L (137-145) 06/06/19 05:42 Potassium 4.9 mmol/L (3.5-5.1) 06/06/19 05:42 Chloride 109 mmol/L (98-107) H 06/06/19 05:42 Carbon Dioxide 24 mmol/L (22-30) 06/06/19 05:42 Anion Gap 6 mmol/L 06/06/19 05:42 BUN 16 mg/dL (9-20) 06/06/19 05:42 Creatinine 1.27 mg/dL (0.66-1.25) H 06/07/19 09:54 Est GFR (CKD-EPI)AfAm 62 (>60 ml/min/1.73 sqM) 06/07/19 09:54 Est GFR (CKD-EPI)NonAf 54 (>60 ml/min/1.73 sqM) 06/07/19 09:54 Glucose 93 mg/dL (74-99) 06/06/19 05:[address] Glu mg/dL 128 06/03/19 12:56 Hemoglobin A1c 6.1 % (4.0-6.0) H 06/03/19 12:56 Plasma Lactic Acid Varinder 1.7 mmol/L (0.7-2.0) 06/03/19 12:56 Calcium 9.7 mg/dL (8.4-10.2) 06/06/19 05:42 Total Bilirubin 0.9 mg/dL (0.2-1.3) 06/03/19 12:56 AST 21 U/L (17-59) 06/03/19 12:56 ALT 16 U/L (4-49) 06/03/19 12:56 Alkaline Phosphatase 84 U/L (38-126) 06/03/19 12:56 Total Protein 8.4 g/dL (6.3-8.2) H 06/03/19 12:56 Albumin 4.6 g/dL (3.5-5.0) 06/03/19 12:56 Microbiology 06/03/19 12:56 Blood Blood Culture - Preliminary No Growth after 96 hours 06/04/19 18:57 Toe - Left First Gram Stain - Final 06/04/19 18:57 Toe - Left First Wound Culture - Final Pseudomonas aeruginosa Serratia liquefaciens Assessment and Plan (1) Peripheral vascular disease of lower extremity with ulceration Status: Acute Code(s): I73.9 - PERIPHERAL VASCULAR DISEASE, UNSPECIFIED; L97.909 - NON-PRS CHRONIC ULC UNSP PRT OF UNSP LOW LEG W UNSP SEVERITY SNOMED Code(s): 976488433 (2) Osteomyelitis Narrative/Plan: 78 -year-old male known history of some peripheral vascular disease with history of prior hector of the lower extremities when he was 7 years of age. He relates that he was working when he dropped a board onto his left great toe. Then after that he did suffer a fall where he had an abrasion to his left knee hurt the toe again. Because the abnormalities he did seek care and was sent to hospital for further evaluation. X-rays without fractu and is not able to elucidate osteomyelitis. However bone scan has been requested. Based on the history and by Local care will be utilized with unruly which can be changed daily for now. Elevation of the foot rest is helpful. Arterial Dopplers will be requested to ensure that he has adequate flow. He may need vascular evaluation afterwards. Multivitamin with zinc is added in ensure adequate protein. 06/05/2019 patient is feeling about the same. There is notation that the bone scan is abnormal. He is tolerating the therahoney to the ulceration without difficulty. Cultures are pending. There is evidence of the markedly diminished ABIs the left lower extremity and a vascular consult has been requested awaiting their input. The patient may need debridement of that left great toe however with a very low blood flow is of great concern. antibiotic therapy continues with Rocephin for now until the culture results are available. 06/06/2019 the patient is showing some improvement. He will need outpatient vascular intervention which is being planned for with appears to be arthrectomy and stenting. Hopefully with improved blood flow we'll see some improvement to that left great toe ulceration. Antibiotic therapy will be switched to oral cefuroxime at the time of his discharge. I believe patient will be following in wound center determine her next options after his vascular procedures. Wound care is with honey product here will be continued at home. 06/07/2019 the patient overall has improved however he now has evidence of this worsening maculo-papular rash mostly of his chest abdomen back and flanks which is pruritic and uncomfortable. Because of this the Rocephin is discontinued, Ceftin is discontinued. Cultures show Pseudomonas and Serratia and with that ciprofloxacin is added which can be used orally. He does have a osteomyelitis to the foot. He however has very poor flow and we followed up with the vascular surgeon on for his percutaneous intervention. Local wound care has been arranged with the home care. With adequate blood flow there may be some healing can occur. should follow up in the wound center after his discharge.medical on the dressing Friday advised for home care Status: Acute Code(s): M86.9 - OSTEOMYELITIS, UNSPECIFIED SNOMED Code(s): 64989761 (3) Toe infection Status: Acute Code(s): L08.9 - LOCAL INFECTION OF THE SKIN AND SUBCUTANEOUS TISSUE, UNSP SNOMED Code(s): 191446446
== END 2019-06-07 19:51 | disposition home or self-care (01) | DRG 300 ==
LOC: EC 11:47 → 4MS4W 13:50 → OBSVTOIN 06-05 13:31 → 6NMEDSUR 06-06 07:39
PROVIDERS: ADMIT Internal Medicine; ATTEND Internal Medicine
DX: I70.245 Atherosclerosis of native arteries of left leg with ulceration of other part of foot (principal); L03.116 Cellulitis of left lower limb; M86.9 Osteomyelitis, unspecified; N17.9 Acute kidney failure, unspecified; L97.529 Non-pressure chronic ulcer of other part of left foot with unspecified severity; E87.5 Hyperkalemia; M10.9 Gout, unspecified; S80.212A Abrasion, left knee, initial encounter; T39.395A Adverse effect of other nonsteroidal anti-inflammatory drugs [NSAID], initial encounter; M19.90 Unspecified osteoarthritis, unspecified site; I10 Essential (primary) hypertension; R21 Rash and other nonspecific skin eruption; B96.5 Pseudomonas (aeruginosa) (mallei) (pseudomallei) as the cause of diseases classified elsewhere; B96.89 Other specified bacterial agents as the cause of diseases classified elsewhere; Z79.1 Long term (current) use of non-steroidal anti-inflammatories (NSAID); Z87.891 Personal history of nicotine dependence; Z98.42 Cataract extraction status, left eye; Z98.41 Cataract extraction status, right eye; Z96.1 Presence of intraocular lens; Z82.49 Family history of ischemic heart disease and other diseases of the circulatory system; Z72.89 Other problems related to lifestyle
CPT/HCPCS: 36415; 75635; 78315; 80048; 80053; 82565; 83036; 83605; 85025; 85610; 85730; 87040; 87070; 87077; 87186; 87205; 93880; 93923; 96374; 96375; 96376; 99285

== ENCOUNTER 2019-06-07 22:47 | Inpatient (IN) | payer MEDICARE ==
[2019-06-07] MEDS ORDERED: SODIUM CHLORIDE 0.9% 500 ML 500 ML IV STA (22:59)
--- NOTE | 2019-06-07 23:33 | XR ---
EXAMINATION TYPE: XR chest 2V DATE OF EXAM: 06/07/2019 COMPARISON: NONE HISTORY: Syncope TECHNIQUE: 2 views FINDINGS: Heart is normal. Lungs are clear of consolidation. There is some coarsening of the lung mar kings. There is some mild pleural and pulmonary scarring at the right lung apex. Thoracic aorta is at heromatous. Bony thorax is intact. IMPRESSION: Mild pulmonary fibrosis. No definite acute lung disease. Normal heart.
[2019-06-07 23:36] LABS: Appearance,Urine Clear (Clear); Basophils % (A) 0 %; Bilirubin,Urine Negative (Negative); Blood,Urine Negative (Negative); Color,Urine Yellow; Eosinophils # (A) 0.1 k/uL (0-0.7); Eosinophils % (A) 1 %; Glucose,Urine (UA) 2+ (Negative); HCT 44.8 % (39.0-53.0); HGB 14.6 gm/dL (13.0-17.5); Ketones,Urine Negative (Negative); Leukocyte Esterase,Urine Negative (Negative); Lymphocytes # (A) 0.6 k/uL (1.0-4.8); Lymphocytes % (A) 5 %; MCH 32.1 pg (25.0-35.0); MCHC 32.6 g/dL (31.0-37.0); MCV 98.6 fL (80.0-100.0); Mean Platelet Volume 8.3; Monocytes # (A) 0.1 k/uL (0-1.0); Monocytes % (A) 1 %; Neutrophils # (A) 10.8 k/uL (1.3-7.7); Neutrophils % (A) 93 %; Nitrite,Urine Negative (Negative); PH, Urine 5.5 (5.0-8.0); Platelet Count 314 k/uL (150-450); Protein,Urine Negative (Negative); RBC 4.55 m/uL (4.30-5.90); RDW 13.4 % (11.5-15.5); Specific Gravity,Urine 1.011 (1.001-1.035); Urobilinogen,Urine <2.0 mg/dL (<2.0); WBC 11.6 k/uL (3.8-10.6)
--- NOTE | 2019-06-07 23:40 | CT ---
EXAMINATION TYPE: CT brain wo con DATE OF EXAM: 06/07/2019 COMPARISON: None HISTORY: syncope CT DLP: 1040.4 mGycm Automated exposure control for dose reduction was used. There is cerebral cortical atrophy. There is no mass effect nor midline shift. There is no sign of in tracranial hemorrhage. The calvarium is intact. IMPRESSION: Cerebral atrophy. No acute intracranial abnormality.
[2019-06-07 23:46] LABS: Albumin 4.7 g/dL (3.5-5.0); Calcium 9.9 mg/dL (8.4-10.2); Magnesium 1.7 mg/dL (1.6-2.3); Potassium 4.7 mmol/L (3.5-5.1); Total Bilirubin 0.5 mg/dL (0.2-1.3); Total Protein 8.5 g/dL (6.3-8.2)
--- NOTE | 2019-06-07 23:49 | ED ---
General Adult HPI - General Chief complaint: Allergic Reaction Stated complaint: Allergic Reaction Time Seen by Provider: 06/07/19 22:57 Source: patient, EMS, RN notes reviewed, old records reviewed Mode of arrival: EMS Limitations: no limitations - History of Present Illness Initial comments: 70-year-old male presents for reevaluation after recent discharge. Patient was discharged from the hospital this evening after being admitted with a left great toe infection and cellulitis. He was home for approximately 10 minutes, he stood felt somewhat lightheaded and nearly passed out. He developed mild headache with this symptoms. No chest pain, mild dyspneawhich has resolved. No abdominal pain. No preceding vomiting or diarrhea. No palpitations. Patient states he's also been dealing with a rash over his torso which is been present since the time of admission. He was prescribed outpatient antibiotics but had not initiated these yet. He states this rash is improving. - Related Data Home Medications Medication Instructions Recorded Confirmed Meloxicam 15 mg PO DAILY 06/03/19 06/07/19 Previous Rx's Medication Instructions Recorded Ciprofloxacin HCl [Cipro] 500 mg PO Q12HR #20 tablet 06/07/19 diphenhydrAMINE HCL [Benadryl] 25 mg PO HS #15 tab 06/07/19 Allergies Allergy/AdvReac Type Severity Reaction Status Date / Time ceftriaxone [From Rocephin] Allergy Rash/Hives Verified 06/07/19 23:02 Review of Systems ROS Statement: Those systems with pertinent positive or pertinent negative responses have been documented in the HPI. ROS Other: All systems not noted in ROS Statement are negative. Past Medical History Past Medical History: Memory Impairment, Osteoarthritis (OA), Vascular Disorder Additional Past Medical History / Comment(s): Arthritis History of Any Multi-Drug Resistant Organisms: None Reported Date of last positivie culture/infection: 2008? MDRO Source:: L 5th toe Past Surgical History: Orthopedic Surgery Additional Past Surgical History / Comment(s): Cystoscopy, L wrist injury with surgery, L knee open surgery for cartlidge repair, L leg stent done in [place], [place], bilateral cataracts removed. Past Anesthesia/Blood Transfusion Reactions: No Reported Reaction Past Psychological History: No Psychological Hx Reported Smoking Status: Former smoker Past Alcohol Use History: Occasional Past Drug Use History: None Reported - Past Family History Father Family Medical History: Myocardial Infarction ([place]) Additional Family Medical History / Comment(s): Father of a [place] when pt was 7 yrs old. Pt cannot recall at what age his father . Mother Family Medical History: No Reported History General Exam Limitations: no limitations General appearance: alert, in no apparent distress Head exam: Present: atraumatic, normocephalic Eye exam: Present: normal appearance, PERRL ENT exam: Present: mucous membranes dry Neck exam: Present: normal inspection. Absent: tenderness, meningismus Respiratory exam: Present: normal lung sounds bilaterally. Absent: respiratory distress, wheezes Cardiovascular Exam: Present: normal rhythm, tachycardia GI/Abdominal exam: Present: soft. Absent: distended, tenderness, guarding, rebound Extremities exam: Present: other (mild erythema of the left great toe, no active bleeding, wound is healing well) Back exam: Present: normal inspection, full ROM Neurological exam: Present: alert, oriented X3, CN II-XII intact. Absent: motor sensory deficit Psychiatric exam: Present: normal affect, normal mood Skin exam: Present: rash (torso), erythema Course Vital Signs 06/07/19 06/07/19 06/07/19 22:54 22:58 23:50 Temperature 97.7 F 97.9 F Pulse Rate 59 L 107 H 97 Respiratory 16 18 19 Rate Blood Pressure 165/88 165/88 147/76 O2 Sat by Pulse 96 98 99 Oximetry EKG Findings - EKG Comments: EKG Findings:: EKG obtained at [address] tachycardia with diffuse ST segment depression and one box of ST segment elevation in aVR. Rate of 102, [place] interval 138, QRS duration 96, QTC 474. EKG obtained at 0043, sinus tachycardia with persistent diffuse ST segment depression and ST segment elevation in aVR, rate of 102, [place] interval 140, QRS duration 94, QTC 487 Medical Decision Making - Medical Decision Making 78-year-old male presenting with near syncopal episode. Patient was recently hospitalized and had just gotten home after discharge. Workup is initiated in the emergency department, he has an EKG showing tachycardia and diffuse ST segment depression. Patient is chest pain-free, did not have chest pain at any point. He had mild dyspnea which was resolved. Chest x-ray obtained which is negative for acute cardiac pulmonary disease. Head CT obtained for sudden onset headache which is negative for intracranial hemorrhage or mass effect. He has mild leukocytosis unknown etiology at this time. He has a stable hemoglobin of 14.6. Urinalysis reveals 2+ glucose no other abnormalities. He hasn't up trending creatinine at 1.64. He has a mild troponin elevation 0.036. Troponin may be elevated due to ischemic changes or secondary to acute kidney injury. given his recent hospital stay diffuse ST segment depression as well as troponin elevation I do have suspicion for pulmonary embolism. He has not trending creatinine and perfusion study has been ordered. This cannot be obtained until the morning. He is initiated on high-dose heparin awaiting perfusion study for possible pulmonary embolism. Heparin will also cover for ACS. Case discussed with the admitting physician Dr. Salinas Regarding the ischemic changes on multiple EKGs I discussed the case with Dr. Wright, agrees with aspirin and heparin and recommends initiating statin. diagnosis: Near-syncope, troponin elevation, acute kidney injury, concern for PE and ACS - Lab Data Result diagrams: 06/07/19 23:15 06/07/19 23:15 Lab Results 06/07/19 06/07/19 06/07/19 Range/Units 23:15 23:15 23:15 WBC 11.6 H (3.8-10.6) k/uL RBC 4.55 (4.30-5.90) m/uL Hgb 14.6 (13.0-17.5) gm/dL Hct 44.8 (39.0-53.0) % MCV 98.6 (80.0-100.0) fL MCH 32.1 (25.0-35.0) pg MCHC 32.6 (31.0-37.0) g/dL RDW 13.4 (11.5-15.5) % Plt Count 314 (150-450) k/uL Neutrophils % 93 % Lymphocytes % 5 % Monocytes % 1 % Eosinophils % 1 % Basophils % 0 % Neutrophils # 10.8 H (1.3-7.7) k/uL Lymphocytes # 0.6 L (1.0-4.8) k/uL Monocytes # 0.1 (0-1.0) k/uL Eosinophils # 0.1 (0-0.7) k/uL Basophils # 0.0 (0-0.2) k/uL PT (9.0-12.0) sec INR (<1.2) APTT (22.0-30.0) sec Sodium 139 (137-145) mmol/L Potassium 4.7 (3.5-5.1) mmol/L Chloride 105 (98-107) mmol/L Carbon Dioxide 19 L (22-30) mmol/L Anion Gap 15 mmol/L BUN 25 H (9-20) mg/dL Creatinine 1.64 H (0.66-1.25) mg/dL Est GFR (CKD-EPI)AfAm 46 (>60 ml/min/1.73 sqM) Est GFR (CKD-EPI)NonAf 40 (>60 ml/min/1.73 sqM) Glucose 173 H (74-99) mg/dL Calcium 9.9 (8.4-10.2) mg/dL Magnesium 1.7 (1.6-2.3) mg/dL Total Bilirubin 0.5 (0.2-1.3) mg/dL AST 20 (17-59) U/L ALT 19 (4-49) U/L Alkaline Phosphatase 91 (38-126) U/L Troponin I 0.036 H* (0.000-0.034) ng/mL Total Protein 8.5 H (6.3-8.2) g/dL Albumin 4.7 (3.5-5.0) g/dL Urine Color Urine Appearance (Clear) Urine pH (5.0-8.0) Ur Specific [place] (1.001-1.035) Urine Protein (Negative) Urine Glucose (UA) (Negative) Urine Ketones (Negative) Urine Blood (Negative) Urine Nitrite (Negative) Urine Bilirubin (Negative) Urine Urobilinogen (<2.0) mg/dL Ur Leukocyte Esterase (Negative) 06/07/19 06/07/19 Range/Units 23:15 23:40 WBC (3.8-10.6) k/uL RBC (4.30-5.90) m/uL Hgb (13.0-17.5) gm/dL Hct (39.0-53.0) % MCV (80.0-100.0) fL MCH (25.0-35.0) pg MCHC (31.0-37.0) g/dL RDW (11.5-15.5) % Plt Count (150-450) k/uL Neutrophils % % Lymphocytes % % Monocytes % % Eosinophils % % Basophils % % Neutrophils # (1.3-7.7) k/uL Lymphocytes # (1.0-4.8) k/uL Monocytes # (0-1.0) k/uL Eosinophils # (0-0.7) k/uL Basophils # (0-0.2) k/uL PT 10.0 (9.0-12.0) sec INR 0.9 (<1.2) APTT 21.0 L (22.0-30.0) sec Sodium (137-145) mmol/L Potassium (3.5-5.1) mmol/L Chloride (98-107) mmol/L Carbon Dioxide (22-30) mmol/L Anion Gap mmol/L BUN (9-20) mg/dL Creatinine (0.66-1.25) mg/dL Est GFR (CKD-EPI)AfAm (>60 ml/min/1.73 sqM) Est GFR (CKD-EPI)NonAf (>60 ml/min/1.73 sqM) Glucose (74-99) mg/dL Calcium (8.4-10.2) mg/dL Magnesium (1.6-2.3) mg/dL Total Bilirubin (0.2-1.3) mg/dL AST (17-59) U/L ALT (4-49) U/L Alkaline Phosphatase (38-126) U/L Troponin I (0.000-0.034) ng/mL Total Protein (6.3-8.2) g/dL Albumin (3.5-5.0) g/dL Urine Color Yellow Urine Appearance Clear (Clear) Urine pH 5.5 (5.0-8.0) Ur Specific [place] 1.011 (1.001-1.035) Urine Protein Negative (Negative) Urine Glucose (UA) 2+ H (Negative) Urine Ketones Negative (Negative) Urine Blood Negative (Negative) Urine Nitrite Negative (Negative) Urine Bilirubin Negative (Negative) Urine Urobilinogen <2.0 (<2.0) mg/dL Ur Leukocyte Esterase Negative (Negative) Critical Care Time Critical Care Time: Yes Total Critical Care Time: 35 Disposition Clinical Impression: Peripheral vascular disease of lower extremity with ulceration, Elevated troponin I level, Near syncope, Acute kidney injury Disposition: ADMITTED IP TO THIS [facility] Condition: Serious Is patient prescribed a controlled substance at d/c from ED?: No Decision to Admit Reason: Admit from EC Decision Date: 06/08/19 Decision Time: 01:10
[2019-06-08 00:17] LABS: INR 0.9 (<1.2)
[2019-06-08] MEDS ORDERED: ASPIRIN 325 MG TAB PO STA ×2 (00:29→09:12)
[2019-06-08] MEDS ORDERED: HEPARIN SODIUM,PORCINE 5,000 UNIT/ML 1 ML VIAL IV PRN (00:32)
[2019-06-08] MEDS ORDERED: HEPARIN SODIUM,PORCINE 5,000 UNIT/ML 1 ML VIAL IV ONE (00:32)
[2019-06-08] MEDS ORDERED: NALOXONE 0.4 MG/ML 1 ML VIAL IV PRN (00:34)
[2019-06-08] MEDS ORDERED: ACETAMINOPHEN TAB 325 MG TAB PO PRN (00:34)
[2019-06-08] MEDS ORDERED: HYDROcodone/APAP 5-325MG 1 EACH TAB PO STA (00:36)
[2019-06-08] MEDS ORDERED: SODIUM CHLORIDE 0.9% 500 ML 500 ML IV ONE (00:37)
[2019-06-08] MEDS ORDERED: HEPARIN SOD,PORK IN 0.45% NACL 25,000 UNIT in 0.45% NACL 1 250ML.BAG IV SCH ×2 (00:45→01:15)
[2019-06-08] MEDS ORDERED: ATORVASTATIN 80 MG TAB PO STA ×2 (01:03→09:12)
[2019-06-08] MEDS: SODIUM CHLORIDE 0.9% 1,000 ML IV SCH ×2 (02:04→19:46)
[2019-06-08 02:50] VITALS: RESP 18
--- NOTE | 2019-06-08 08:33 | P.CRDCN ---
History of Present Illness Consult date: 06/08/19 Requesting physician: Maxi Santana Reason for Consult (text): elevated troponin Chief complaint: near syncope History of present illness: this is a pleasant 78-year-old -[place] gentleman who approximately 3-4 weeks ago had dropped a board on his left great toe causing a wound and it busted open, he was admitted to the hospital and treated forleft great toe ulcer infection he was initiated on IV antibiotics the wound cultures showed Pseudomonas Argento cell and severe rash she has a liquid fashions. 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 Patient denies any history of hypertension although he states he was initiated on blood pressure pills on this recent admission, denies diabetes, no hyperlipidemia, smoking approximately 10 years ago, he does drink 3 ounces of alcohol approximately on a daily basis. Patient states his sister had a myocardial infarction in her 30s and . After returning home after being discharged from the hospital, patient states that he walked to the bathroom, he then developed a headache, became very diaphoretic and lightheaded, felt like he was going to pass out. His grandson was present, helped him to sit down on the bed. He did not completely lose consciousness. Patient denies any chest pressure or chest discomfort of any sort, he denies any shortness of breath but states that he felt it was hard to breathe for a brief period of time.history and presentation showed some mild pulmonary fibrosis with no acute lung disease.CAT scan of the brain was also performed which revealed cerebral atrophy with no acute intracranial abnormality.his EKG on presentation here showed a sinus tachycardia with some mild ST elevation noted in aVR, and significant ST depression noted in the inferior and lateral leads.subsequent EKG performed showed sinus tachycardia with persistence of mild ST elevation in aVR and ST depression in leads V3 to V6. His blood pressure on arrival here 165/88, initial heart rate wasaround 100, he was 98% on room air.laboratory data was reviewed, white blood cell count 11.6, hemoglobin 14.6, platelet count 314. Sodium 139, potassium 4.7, BUN 25, creatinine of 1.6, magnesium 1.7, Initial troponin 0.036, subsequent troponin 13.7.examined my examination this morning, patient quite comfortable, he states that his headache is gone he has no lightheadedness no diaphoresis, denies any chest pain and is not short of breath. Past Medical History Past Medical History: Memory Impairment, Osteoarthritis (OA), Vascular Disorder Additional Past Medical History / Comment(s): Arthritis History of Any Multi-Drug Resistant Organisms: None Reported Date of last positivie culture/infection: 2008? MDRO Source:: L 5th toe Past Surgical History: Orthopedic Surgery Additional Past Surgical History / Comment(s): Cystoscopy, L wrist injury with surgery, L knee open surgery for cartlidge repair, L leg stent done in [place], [place], bilateral cataracts removed. Past Anesthesia/Blood Transfusion Reactions: No Reported Reaction Past Psychological History: No Psychological Hx Reported Smoking Status: Former smoker Past Alcohol Use History: Occasional Past Drug Use History: None Reported - Past Family History Father Family Medical History: Myocardial Infarction ([place]) Additional Family Medical History / Comment(s): Father of a [place] when pt was 7 yrs old. Pt cannot recall at what age his father . Mother Family Medical History: No Reported History Medications and Allergies Home Medications Medication Instructions Recorded Confirmed Type Meloxicam 15 mg PO DAILY 06/03/19 06/07/19 History Ciprofloxacin HCl [Cipro] 500 mg PO Q12HR #20 tablet 06/07/19 06/07/19 Rx diphenhydrAMINE HCL [Benadryl] 25 mg PO HS #15 tab 06/07/19 06/07/19 Rx Allergies Allergy/AdvReac Type Severity Reaction Status Date / Time ceftriaxone [From Rocephin] Allergy Rash/Hives Verified 06/07/19 23:02 Physical Exam Vitals: Vital Signs Temp Pulse Pulse Resp BP BP Pulse Ox 06/08/19 07:55 98.2 F 104 H 18 139/78 98 06/08/19 02:50 90 18 116/62 97 06/08/19 01:09 97.5 F L 65 18 171/87 99 06/07/19 23:50 97 19 147/76 99 06/07/19 22:58 97.9 F 107 H 18 165/88 98 06/07/19 22:54 97.7 F 59 L 16 165/88 96 Intake and Output 06/07/19 06/08/19 06/08/19 22:59 06:59 14:59 Other: # Voids 2 Weight 61.235 kg 64.5 kg PHYSICAL EXAMINATION: GENERAL:78-year-old -[place] gentleman in no acute distress at the time of my examination HEENT: Head is atraumatic, normocephalic. Pupils equal, round. Sclera anicteri c. Conjunctiva are clear. Mucous membranes of the mouth are moist. Neck is supple. There is no elevated jugular venous pressure.no carotid bruit is heard. HEART EXAMINATION: heart S1 S2 1 systolic murmur is heard CHEST EXAMINATION:[ Lungs are clear to auscultation and precussion. No chest wall tenderness is noted on palpation or with deep breathing.] ABDOMEN: [ Soft, nontender. Bowel sounds are heard. No organomegaly noted]. EXTREMITIES:[ 1+ peripheral pulses with no evidence of peripheral edema and no calf tenderness noted].Patient does have a dressing in place to the left great toe NEUROLOGIC [patient is awake, alert and oriented X3 . Results 06/07/19 23:15 06/07/19 23:15 Cardiac Enzymes 06/07/19 06/07/19 06/08/19 Range/Units 23:15 23:15 06:19 AST 20 (17-59) U/L Troponin I 0.036 H* 13.700 H* (0.000-0.034) ng/mL Coagulation 06/07/19 06/08/19 Range/Units 23:40 06:19 PT 10.0 (9.0-12.0) sec APTT 21.0 L 73.1 H (22.0-30.0) sec CBC 06/07/19 Range/Units 23:15 WBC 11.6 H (3.8-10.6) k/uL RBC 4.55 (4.30-5.90) m/uL Hgb 14.6 (13.0-17.5) gm/dL Hct 44.8 (39.0-53.0) % Plt Count 314 (150-450) k/uL Comprehensive Metabolic Panel 06/07/19 Range/Units 23:15 Sodium 139 (137-145) mmol/L Potassium 4.7 (3.5-5.1) mmol/L Chloride 105 (98-107) mmol/L Carbon Dioxide 19 L (22-30) mmol/L BUN 25 H (9-20) mg/dL Creatinine 1.64 H (0.66-1.25) mg/dL Glucose 173 H (74-99) mg/dL Calcium 9.9 (8.4-10.2) mg/dL AST 20 (17-59) U/L ALT 19 (4-49) U/L Alkaline Phosphatase 91 (38-126) U/L Total Protein 8.5 H (6.3-8.2) g/dL Albumin 4.7 (3.5-5.0) g/dL Current Medications Generic Name Dose Route Start Last Admin Trade Name Freq PRN Reason Stop Dose Admin Acetaminophen 650 mg 06/08/19 00:34 Tylenol Tab PO Q6HR PRN Mild Pain or Fever > 100.5 Atorvastatin Calcium 40 mg 06/09/19 21:00 Lipitor PO HS BETHANY Heparin Sodium (Porcine) 0 unit 06/08/19 00:32 Heparin IV PER PROTOCOL PRN Low PTT Protocol Sodium Chloride 1,000 mls @ 50 mls/hr 06/08/19 00:30 06/08/19 02:04 Saline 0.9% IV 50 mls/hr .Q20H BETHANY Administration Heparin Sodium/Sodium Chloride 250 mls @ 11.022 mls/hr 06/08/19 01:15 06/08/19 01:19 25,000 unit/ Sodium Chloride IV 18 units/kg/hr .[id number] BETHANY 11.022 mls/hr Administration Protocol 18 UNITS/KG/HR Naloxone HCl 0.2 mg 06/08/19 00:34 Narcan IV Q2M PRN Opioid Reversal Intake and Output 06/07/19 06/08/19 06/08/19 22:59 06:59 14:59 Other: # Voids 2 Weight 61.235 kg 64.5 kg 06/07/19 23:15 06/07/19 23:15 EKG Interpretations (text) EKG on presentation here showed a sinus tachycardia with mild ST elevation noted in aVR and ST depression noted in the inferior lateral leads. Assessment and Plan Plan: assessment and plan #1 episode of near syncope,with elevation in troponins.she'll troponin 0.036, subsequent troponin 13.7. EKG shows a sinus tachycardia with mild ST elevation in aVR and ST depression noted in the inferior lateral leads. Suggesting possible non-Q-wave myocardial infarction #2 recent diagnosis of hypertension #3 recent hospitalization with left toe infection #4 PAD with prior peripheral stenting #5 hyperlipidemia, untreated #6 strong family history of premature coronary artery disease #7 prior history of smoking #8 daily alcohol use benign renal insufficiency, creatinine 1.6 Plan We will obtain a stat echocardiogram with Doppler study. Patient has been initiated on IV heparin we will continue with that. He is also been given aspirin and Lipitor. We'll start the patient on a beta giovanny.obtain a BNP level and d-dimer. Patient has been advised to undergo cardiac catheterization, the risks and the benefits were explained to the patient in detail and he is willing to proceed. Patient did receive 2- 500 mL boluses and we will increase his IV fluids to 75 mL per hour. Further recommendations will follow. DNP note has been reviewed, I agree with a documented findings and plan of care. Patient was seen and examined.
[2019-06-08] MEDS: METOPROLOL TARTRATE 25 MG TAB PO SCH ×2 (08:49→19:45)
[2019-06-08] MEDS ORDERED: SODIUM CHLORIDE 0.9% 1,000 ML in EMPTY BAG 1 BAG IV ONE (09:12)
[2019-06-08] MEDS ORDERED: ALPRAZolam 0.5 MG TAB PO PRN (09:12)
[2019-06-08] MEDS ORDERED: NITROGLYCERIN SL TABS 0.4 MG TAB SUBLINGUAL PRN ×2 (09:12→12:29)
[2019-06-08] MEDS ORDERED: ALPRAZolam 0.25 MG TAB PO PRN (09:12)
--- NOTE | 2019-06-08 09:40 | ECHOF ---
Referral Reason:NSTEMI MEASUREMENTS -------- HEIGHT: 177.8 cm WEIGHT: 64.4 kg BP: 171/87 RVIDd: 2.3 cm (< 3.3) IVSd: 1.0 cm (0.6 - 1.1) LVIDd: 3.4 cm (3.9 - 5.3) LVPWd: 1.0 cm (0.6 - 1.1) IVSs: 1.5 cm LVIDs: 1.6 cm LVPWs: 1.3 cm LAESV Index (A-L): 11.63 ml/m Ao Diam: 2.8 cm (2.0 - 3.7) AV Cusp: 1.9 cm (1.5 - 2.6) LA Diam: 2.2 cm (2.7 - 3.8) MV EXCURSION: 22.473 mm (> 18.000) MV EF SLOPE: 168 mm/s (70 - 150) EPSS: 0.4 cm MV E Pelon: 0.83 m/s MV DecT: 156 ms MV A Pelon: 1.15 m/s MV E/A Ratio: 0.72 RAP: 5.00 mmHg RVSP: 20.59 mmHg TAPSE: 27.07 mm FINDINGS -------- Resting tachycardia (HR>100bpm). This was a technically good study. The left ventricular size is normal. Left ventricular wall thickness is normal. Overall left vent ricular systolic function is normal with, an EF between 55 - 60 %. The diastolic filling pattern is normal for the age of the patient 11.67. The right ventricle is normal in size. The right ventricular systolic function is normal. The left atrial size is normal. Normal LA size by volume 22+/-6 ml/m2. The right atrial size is normal. The aortic valve is trileaflet and appears structurally normal. The mitral valve is normal. There is trace mitral regurgitation. The tricuspid valve appears structurally normal. Trace tricuspid regurgitation present. Right kerri tricular systolic pressure is normal at < 35 mmHg. There is no pulmonic regurgitation present. The aortic root size is normal. Normal inferior vena cava with normal inspiratory collapse consistent with estimated right atrial pre ssure of 5 mmHg. There is no pericardial effusion. CONCLUSIONS -------- 1. Resting tachycardia (HR>100bpm). 2. This was a technically good study. 3. The left ventricular size is normal. 4. Left ventricular wall thickness is normal. 5. Overall left ventricular systolic function is normal with, an EF between 55 - 60 %. 6. The diastolic filling pattern is normal for the age of the patient 11.67 7. The right ventricle is normal in size. 8. The right ventricular systolic function is normal. 9. The left atrial size is normal. 10. Normal LA size by volume 22+/-6 ml/m2. 11. The right atrial size is normal. 12. The aortic valve is trileaflet and appears structurally normal. 13. The mitral valve is normal. 14. There is trace mitral regurgitation. 15. The tricuspid valve appears structurally normal. 16. Trace tricuspid regurgitation present. 17. Right ventricular systolic pressure is normal at < 35 mmHg. 18. There is no pulmonic regurgitation present. 19. The aortic root size is normal. 20. Normal inferior vena cava with normal inspiratory collapse consistent with estimated right atrial pressure of 5 mmHg. 21. There is no pericardial effusion. RETAIL ACCOUNT EXECUTIVE: Alma Lawrence RDCS
[2019-06-08] MEDS ORDERED: LIDOCAINE 1% INJ 10MG/ML (20 ML MDV) ONE (11:03)
[2019-06-08] MEDS ORDERED: fentaNYL (PF) 50 MCG/ML 2 ML AMP ONE (11:03)
[2019-06-08] MEDS ORDERED: VERAPAMIL 2.5 MG/ML 2 ML AMP ONE (11:03)
[2019-06-08] MEDS ORDERED: HEPARIN SODIUM 1,000 UN/ML (10ML VL) ONE (11:19)
[2019-06-08] MEDS: fentaNYL (PF) 50 MCG/ML 2 ML AMP IV ONE ×2 (11:30→11:49)
[2019-06-08] MEDS ORDERED: MIDAZOLAM 2 MG/2 ML VIAL IV ONE (11:30)
[2019-06-08] MEDS ORDERED: IV FLUID CONTINUATION 900 ML IV ONE (11:31)
[2019-06-08] MEDS ORDERED: LIDOCAINE 1% INJ 10MG/ML (20 ML MDV) SQ ONE (11:31)
[2019-06-08] MEDS ORDERED: VERAPAMIL SYRINGE (5 MG/10 ML) INTRAARTER ONE (11:32)
[2019-06-08] MEDS ORDERED: BIVALIRUDIN 250 MG in SODIUM CHLORIDE 0.9% 40 ML IV ONE (11:44)
[2019-06-08] MEDS ORDERED: BIVALIRUDIN BOLUS 250 MG/50 ML IV ONE (11:44)
[2019-06-08] MEDS ORDERED: niCARdipine 25 MG/10 ML VIAL ONE (12:11)
[2019-06-08] MEDS ORDERED: IOPAMIDOL-370 125ML BTL INJ ONE (12:13)
[2019-06-08] MEDS ORDERED: niCARdipine Syringe (1,000 mcg/10 mL) INTRACORON ONE (12:22)
[2019-06-08] MEDS ORDERED: CLOPIDOGREL 75 MG TAB ONE (12:23)
[2019-06-08] MEDS ORDERED: CLOPIDOGREL 75 MG TAB PO ONE (12:23)
[2019-06-08] MEDS ORDERED: IOPAMIDOL-370 50ML BTL INJ ONE (12:24)
[2019-06-08] MEDS ORDERED: ZOLPIDEM 5 MG TAB PO PRN (12:29)
[2019-06-08] MEDS ORDERED: ATROPINE SULFATE 0.1 MG/ML 10ML SYRINGE IV PRN (12:29)
[2019-06-08] MEDS ORDERED: MAG HYDROX/AL HYDROX/SIMETH 30 ML CUP PO PRN (12:29)
[2019-06-08] MEDS ORDERED: RX INFO: IV CONTRAST WAS GIVEN 1 EACH MISC MISCELLANE PRN (12:29)
[2019-06-08] MEDS ORDERED: SODIUM CHLORIDE 0.9% 1,000 ML IV SCH (12:30)
--- NOTE | 2019-06-08 13:08 | CC ---
CARDIAC CATHETERIZATION REPORT DATE OF SERVICE: June 08, 2019 PERFORMING PHYSICIAN: Garth Casper MD. PROCEDURE PERFORMED: 1. Selective right and left coronary angiogram. 2. Left heart catheterization. 3. Successful stenting of OM1 of the left circumflex using 2.0 x 12 mm Thaddeus BRIAN with an excellent angiographic result and reduction of stenosis from 80% to 0%. 4. Successful stenting of the ostial left circumflex coronary artery using 3.0 x 12 mm Xience BRIAN with an excellent angiographic result and reduction of stenosis from 99% to 0%. INDICATION: This is a 78-year-old gentleman with history of peripheral arterial disease as well as hypertension and dyslipidemia who presented to the hospital with chest discomfort associated with EKG changes concerning for ischemia as well as ruled in for acute non- ST-elevation myocardial infarction. He was seen by Dr. Jason Almonte who recommended proceeding with coronary angiogram from right radial approach. COMPLICATION: None. LEVEL OF SEDATION: Moderate with sedation length of 58 minutes. PROCEDURE DESCRIPTION: After obtaining informed consent, the patient was brought to the cardiac shellfish processing laborer. The right radial artery was cannulated using micropuncture technique, the micropuncture wire passed easily then I placed a 6-[place] sheath in the right radial artery. After that I gave the patient 2 mg of verapamil IA. Selective right and left coronary angiogram performed using JR4 and JL3.5 catheters. Left heart catheterization was performed using 5-[place] Citizen pigtail catheter. After that I did intervene on the left circumflex. Please see a separate paragraph for that. SELECTIVE CORONARY ANGIOGRAM: 1. The right coronary artery is a large caliber vessel and is a dominant vessel. The RCA in the proximal portion appeared to be severely diseased in the range of 70%. The mid RCA also has another lesion appeared to be in the range of 70%. The RCA is extremely tortuous in the midportion. Distally appeared to be appeared to be angiographically normal. It bifurcates into PDA and PLV branches both appeared to be angiographically normal. 2. The left circumflex is a large caliber vessel. It is a nondominant vessel. The proximal left circumflex appeared to have a critical lesion in the range of 99.9%. It gives rise into OM1, which has a lesion in the proximal portion appeared to be in the range of 70%. The mid left circumflex becomes small to medium caliber vessel with lesion appeared to be in the range of 99.9%. 3. The LAD: The proximal LAD appeared to be angiographically normal. It gives rise into the first diagonal branch which has an ostial lesion appeared to be in the range of 70%. The mid LAD has a lesion appeared to be in the range of 30% to 40%. The LAD distally appeared to be angiographically normal. HEMODYNAMICS: The LVEDP was about 18 to 20 mmHg. PCI OF THE LEFT CIRCUMFLEX: Anticoagulation was initiated using Angiomax. Subsequently I took a JL3.5 guide and the left main was engaged. I did wire the left circumflex using 0.014 Whisper J wire. After that I did wire OM1 using a short run-through wire. After that I did balloon angioplasty of the proximal left circumflex as well as OM1 using a 2.0 x 12 mm balloon. In the OM1, I deployed 2.0 x 12 mm Bowie drug-eluting stent where stent was positioned under fluoroscopy guidance and deployed under its nominal pressure. For the proximal left circumflex, I deployed a 3.0 x 12 mm Xience BRIAN where the stent was positioned under fluoroscopy guidance and deployed under its nominal pressure as well. The following angiogram showed excellent angiographic results and the procedure was completed without any complication. CONCLUSION: 1. Acute [id number] myocardial infarction. 2. Critical disease involving the left circumflex coronary artery as well as OM1 of the left circumflex. 3. I did perform successful stenting of the left circumflex as well as OM1. 4. Mild disease involving the left anterior descending artery. 5. Severe disease involving the RCA in the midportion on long segments. POSTPROCEDURE MANAGEMENT: 1. Dual antiplatelet therapy. 2. Risk factors modifications. 3. Follow up with the patient. MMODL / IJN: [id number] /
[2019-06-08 13:31] VITALS: BMI 19.5
--- NOTE | 2019-06-08 18:34 | P.HPIM ---
History of Present Illness H&P Date: 06/08/19 Chief Complaint: chest pain patient is a 78-year-old male with a known history of osteoarthritis and recent infection of the left great toe due to injury and surrounding cellulitis who was discharged from the hospital yesterdaywith antibiotics for left great toe ulcer and infectionwith wound cultures growing Pseudomonas and Serratia.patient underwent CT angiogramshowed left iliac and superficial femoral artery occlusive disease. Patient was supposed to follow with vascular surgery and podiatric as an outpatient. patient says that after reaching home, patient walked to the bathroom and suddenly developed headache and became very diaphoretic and lightheaded and felt like he was going topass out. Patient's grandson have him to sit down on the bed. Patient denied any loss of consciousness. No complaints of chest pain are shortness of breath.no nausea vomiting or abdominal pain or diarrhea.patient was mildly dyspneic on admission but resolved now. During recent admissionpatient also developed a rash over his abdomen, thought to be due to ceftriaxone. Did improve with Benadryl. chest x-ray showedmild pulmonary fibrosis. No definite acute lung disease. Nor mal heart. CT head showed no acute intracranial process and neck line at EKG showed sinus tachycardia with ST depression noted itheinferior and lateral leads.Laboratory data showed WBC count 11.6, hemoglobin 14.6 platelet count 115083 BUN and creatinine 25 and 1.6 Initial troponin level is 0.036 and went up to 13.7. Review of Systems Constitutional: Patient denies any fever or chills . No generalized weakness or weight loss. Abdomen: Patient denied nausea vomiting and diarrhea and abdominal pain. Cardiovascular: Patient denies any chest pain . Did have a brief short of breath no palpitations. Respiratory: patient denied any cough is from production. No shortness of breath Neurologic: Patient denied any numbness or tingling . Patient did have headache and lightheadednesse. Musculoskeletal: Patient denies any complaints of joint swelling or deformity. Skin: Negative Psychiatric: Negative Endocrine: No heat or cold intolerance. No recent weight gain. Genitourinary: No dysuria or hematuria. All other 14 point ROS negative except the above Past Medical History Past Medical History: Memory Impairment, Osteoarthritis (OA), Vascular Disorder Additional Past Medical History / Comment(s): Arthritis History of Any Multi-Drug Resistant Organisms: None Reported Date of last positivie culture/infection: 2008? MDRO Source:: L 5th toe Past Surgical History: Orthopedic Surgery Additional Past Surgical History / Comment(s): Cystoscopy, L wrist injury with surgery, L knee open surgery for cartlidge repair, L leg stent done in [place], [place], bilateral cataracts removed. Past Anesthesia/Blood Transfusion Reactions: No Reported Reaction Past Psychological History: No Psychological Hx Reported Smoking Status: Former smoker Past Alcohol Use History: Occasional Past Drug Use History: None Reported - Past Family History Father Family Medical History: Myocardial Infarction ([place]) Additional Family Medical History / Comment(s): Father of a [place] when pt was 7 yrs old. Pt cannot recall at what age his father . Mother Family Medical History: No Reported History Medications and Allergies Home Medications Medication Instructions Recorded Confirmed Type Meloxicam 15 mg PO DAILY 06/03/19 06/07/19 History Ciprofloxacin HCl [Cipro] 500 mg PO Q12HR #20 tablet 06/07/19 06/07/19 Rx diphenhydrAMINE HCL [Benadryl] 25 mg PO HS #15 tab 06/07/19 06/07/19 Rx Allergies Allergy/AdvReac Type Severity Reaction Status Date / Time ceftriaxone [From Rocephin] Allergy Rash/Hives Verified 06/07/19 23:02 Physical Exam Vitals: Vital Signs Temp Pulse Pulse Pulse Resp BP BP 06/08/19 12:45 97.4 F L 74 18 131/68 06/08/19 12:29 97.4 F L 74 18 131/68 06/08/19 10:41 98.2 F 104 H 18 139/78 06/08/19 08:00 104 H 18 06/08/19 07:55 98.2 F 104 H 18 139/78 06/08/19 02:50 90 18 116/62 06/08/19 01:09 97.5 F L 65 18 171/87 06/07/19 23:50 97 19 147/76 06/07/19 22:58 97.9 F 107 H 18 165/88 06/07/19 22:54 97.7 F 59 L 16 165/88 Pulse Ox 06/08/19 12:45 94 L 06/08/19 12:29 94 L 06/08/19 10:41 98 06/08/19 08:00 06/08/19 07:55 98 12/17/19 02:50 97 06/08/19 01:09 99 06/07/19 23:50 99 06/07/19 22:58 98 06/07/19 22:54 96 Intake and Output 06/07/19 06/08/19 06/08/19 22:59 06:59 14:59 Intake Total 476 Balance 476 Intake: IV 116 Oral 360 Other: Voiding Method Urinal # Voids 2 Weight 61.235 kg 64.5 kg PHYSICAL EXAMINATION: Patient is lying in the bed comfortably, no acute distress, awake alert and oriented.mild cognitive impairment. HEENT: Normocephalic. Neck is supple. Pupils reactive. Nostrils clear. Oral cavity is moist. Ears reveal no drainage. Neck reveals no JVD, carotid bruits, or thyromegaly. CHEST EXAMINATION: Trachea is central. Symmetrical expansion. Lung cantu clear to auscultation and percussion. CARDIAC: Normal S1, S2 with no gallops. No murmurs ABDOMEN: Soft. Bowel sounds normal. No organomegaly. No abdominal bruits. Extremities: reveal no edema. No clubbing or cyanosis. Left big toe wound is dressed now. Neurologically awake, alert, oriented x3 with well-coordinated movements. No focal deficits noted Skin: No rash or skin lesions. Psychiatric: Coperative. Nonsuicidal Musculoskeletal: No joint swelling or deformity. Normal range of motion. Results CBC & Chem 7: 06/07/19 23:15 06/07/19 23:15 Labs: Abnormal Lab Results - Last 24 Hours (Table) 06/07/19 06/07/19 06/07/19 Range/Units 23:15 23:15 23:15 WBC 11.6 H (3.8-10.6) k/uL Neutrophils # 10.8 H (1.3-7.7) k/uL Lymphocytes # 0.6 L (1.0-4.8) k/uL APTT (22.0-30.0) sec Carbon Dioxide 19 L (22-30) mmol/L BUN 25 H (9-20) mg/dL Creatinine 1.64 H (0.66-1.25) mg/dL Glucose 173 H (74-99) mg/dL Troponin I 0.036 H* (0.000-0.034) ng/mL Total Protein 8.5 H (6.3-8.2) g/dL Urine Glucose (UA) (Negative) 06/07/19 06/07/19 06/08/19 Range/Units 23:15 23:40 06:19 WBC (3.8-10.6) k/uL Neutrophils # (1.3-7.7) k/uL Lymphocytes # (1.0-4.8) k/uL APTT 21.0 L 73.1 H (22.0-30.0) sec Carbon Dioxide (22-30) mmol/L BUN (9-20) mg/dL Creatinine (0.66-1.25) mg/dL Glucose (74-99) mg/dL Troponin I (0.000-0.034) ng/mL Total Protein (6.3-8.2) g/dL Urine Glucose (UA) 2+ H (Negative) 06/08/19 Range/Units 06:19 WBC (3.8-10.6) k/uL Neutrophils # (1.3-7.7) k/uL Lymphocytes # (1.0-4.8) k/uL APTT (22.0-30.0) sec Carbon Dioxide (22-30) mmol/L BUN (9-20) mg/dL Creatinine (0.66-1.25) mg/dL Glucose (74-99) mg/dL Troponin I 13.700 H* (0.000-0.034) ng/mL Total Protein (6.3-8.2) g/dL Urine Glucose (UA) (Negative) Thrombosis Risk Factor Assmnt - DVT/VTE Prophylaxis DVT/VTE Prophylaxis: Pharmacologic Prophylaxis ordered - Choose All That Apply Any of the Below Risk Factors Present?: No Each Risk Factor Represents 3 Points: Age 75 years or older Thrombosis Risk Factor Assessment Total Risk Factor Score: 3 Thrombosis Risk Factor Assessment Level: Moderate Risk Assessment and Plan Assessment: acute non-ST elevated [place] Near syncope with elevated troponin level likely secondary to above recent left great toe infection with ulcer secondary to trauma. Wound cultures growing Pseudomonas and Serratia. Patient was sent home on ciprofloxacin twice daily for 10 days.discharged on 07/08/2018 Peripheral vascular disease with prior history of stent placement to left lower extremity Hypertension Hyperlipidemia Acute kidney injury with creatinine level I.6. Baseline around 1.2 Previous history of smoking Family history of premature coronary artery disease History of gout Mild cognitive impairment DVT prophylaxis plan: Patient was continued on IV heparin. ontinue with telemetry monitoring and se troponins. Continue with aspirin and statins. Patient underwent cardiac catheterization with stent placement. 2-D echocardiogram was ordered. Continue to monitor renal function andcontinue with antibiotics 4 recent left great toe infection. cardiology is on board. Further recommendations basedal course.prognosis is guarded. Time with Patient: Greater than 30
[2019-06-08] MEDS: CIPROFLOXACIN HCL 500 MG TAB PO SCH (19:45)
[2019-06-09 06:57] LABS: Basophils % (A) 1 %; Eosinophils # (A) 0.8 k/uL (0-0.7); Eosinophils % (A) 10 %; HCT 38.9 % (39.0-53.0); HGB 12.4 gm/dL (13.0-17.5); Lymphocytes # (A) 0.8 k/uL (1.0-4.8); Lymphocytes % (A) 9 %; MCH 32.1 pg (25.0-35.0); MCV 100.6 fL (80.0-100.0); Mean Platelet Volume 8.2; Monocytes # (A) 0.7 k/uL (0-1.0); Monocytes % (A) 8 %; Neutrophils # (A) 6.1 k/uL (1.3-7.7); Neutrophils % (A) 71 %; Platelet Count 275 k/uL (150-450); RBC 3.87 m/uL (4.30-5.90); RDW 13.4 % (11.5-15.5); WBC 8.5 k/uL (3.8-10.6)
[2019-06-09 07:07] LABS: Albumin 3.3 g/dL (3.5-5.0); Calcium 8.9 mg/dL (8.4-10.2); Potassium 4.7 mmol/L (3.5-5.1); Total Bilirubin 0.4 mg/dL (0.2-1.3); Total Protein 6.5 g/dL (6.3-8.2)
[2019-06-09] MEDS: SODIUM CHLORIDE 0.9% 1,000 ML IV SCH (07:48)
[2019-06-09] MEDS: CIPROFLOXACIN HCL 500 MG TAB PO SCH ×2 (07:53→20:02)
[2019-06-09] MEDS: METOPROLOL TARTRATE 25 MG TAB PO SCH ×2 (07:53→20:02)
[2019-06-09] MEDS: CLOPIDOGREL 75 MG TAB PO SCH (07:53)
[2019-06-09] MEDS: ASPIRIN 81 MG PO SCH (13:28)
--- NOTE | 2019-06-09 14:53 | P.PN ---
Subjective Progress Note Date: 06/09/19 This is a pleasant 78-year-old -[place] gentleman who approximately 3-4 weeks ago had dropped a board on his left great toe causing a wound and it busted open, he was admitted to the hospital and treated forleft great toe ulcer infection he was initiated on IV antibiotics the wound cultures showed Pseudomonas Argento cell and severe rash she has a liquid fashions. 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 Patient denies any history of hypertension although he states he was initiated on blood pressure pills on this recent admission, denies diabetes, no hyperlipidemia, smoking approximately 10 years ago, he does drink 3 ounces of alcohol approximately on a daily basis. Patient states his sister had a myocardial infarction in her 30s and . After returning home after being discharged from the hospital, patient states that he walked to the bathroom, he then developed a headache, became very diaphoretic and lightheaded, felt like he was going to pass out. His grandson was present, helped him to sit down on the bed. He did not completely lose consciousness. Patient denies any chest pressure or chest discomfort of any sort, he denies any shortness of breath but states that he felt it was hard to breathe for a brief period of time.history and presentation showed some mild pulmonary fibrosis with no acute lung disease.CAT scan of the brain was also performed which revealed cerebral atrophy with no acute intracranial abnormality.his EKG on presentation here showed a sinus tachycardia with some mild ST elevation noted in aVR, and significant ST depression noted in the inferior and lateral leads.subsequent EKG performed showed sinus tachycardia with persistence of mild ST elevation in aVR and ST depression in leads V3 to V6. His blood pressure on arrival here 165/88, initial heart rate wasaround 100, he was 98% on room air.laboratory data was reviewed, white blood cell count 11.6, hemoglobin 14.6, platelet count 314. Sodium 139, potassium 4.7, BUN 25, creatinine of 1.6, magnesium 1.7, Initial troponin 0.036, subsequent troponin 13.7.examined my examination this morning, patient quite comfortable, he states that his headache is gone he has no lightheadedness no diaphoresis, denies any chest pain and is not short of breath. 06/09/2019 patient was taken to the cardiac catheterization lab yesterday where he u nderwent successful stenting of the OM1 of the left circumflex as well as successful stenting of the ostial circumflex by Dr. León. Overall the patient does feel significantly better today, denies any chest pain and his breathing overall has been stable.blood pressure 122/60 with a heart rate in the 80s, 94% on room air.White blood cell count 8.5, hemoglobin 12.4, platelet count 275. Sodium 140, potassium 4.7, BUN 25 and creatinine 1.2. Objective - Vital Signs Vital signs: Vital Signs Temp 97.8 F 06/09/19 10:50 Pulse 80 06/09/19 11:48 Resp 18 06/09/19 10:50 BP 122/61 06/09/19 10:50 Pulse Ox 94 L 06/09/19 10:50 Intake & Output 06/08/19 06/09/19 06/09/19 18:59 06:59 18:59 Intake Total 1336 Output Total 945 800 250 Balance 391 -800 -250 Weight 64.5 kg 63.5 kg Intake: IV 116 Intake, IV Titration 500 Amount Sodium Chloride 0.9% 1, 500 000 ml @ 75 mls/hr IV . [id number] FORMERLY [facility], 1928–1983 Rx#:[id number] Oral 720 Output: Urine 945 800 250 Other: Voiding Method Urinal Urinal # Voids 1 - Exam PHYSICAL EXAMINATION: GENERAL:78-year-old -[place] gentleman in no acute distress at the time of my examination HEENT: Head is atraumatic, normocephalic. Pupils equal, round. Sclera anicteric. Conjunctiva are clear. Mucous membranes of the mouth are moist. Neck is supple. There is no elevated jugular venous pressure.no carotid bruit is heard. HEART EXAMINATION: heart S1 S2 1 systolic murmur is heard CHEST EXAMINATION:[ Lungs are clear to auscultation and precussion. No chest wall tenderness is noted on palpation or with deep breathing.] ABDOMEN: [ Soft, nontender. Bowel sounds are heard. No organomegaly noted]. EXTREMITIES:[ 1+ peripheral pulses with no evidence of peripheral edema and no calf tenderness noted].Patient does have a dressing in place to the left great toe, right radial site is clean and dry, good distal pulse. NEUROLOGIC [patient is awake, alert and oriented X3 . - Labs CBC & Chem 7: 06/09/19 06:37 06/09/19 06:37 Labs: Abnormal Lab Results - Last 24 Hours (Table) 06/08/19 06/09/19 06/09/19 Range/Units 14:36 06:37 06:37 RBC 3.87 L (4.30-5.90) m/uL Hgb 12.4 L (13.0-17.5) gm/dL Hct 38.9 L (39.0-53.0) % MCV 100.6 H (80.0-100.0) fL Lymphocytes # 0.8 L (1.0-4.8) k/uL Eosinophils # 0.8 H (0-0.7) k/uL Chloride 112 H (98-107) mmol/L BUN 25 H (9-20) mg/dL AST 73 H (17-59) U/L Troponin I 89.300 H* (0.000-0.034) ng/mL Albumin 3.3 L (3.5-5.0) g/dL Assessment and Plan Plan: assessment and plan #1 episode of near syncope,with elevation in troponins.she'll troponin 0.036, subsequent troponin 13.7. EKG shows a sinus tachycardia with mild ST elevation in aVR and ST depression noted in the inferior lateral leads. Suggesting possible non-Q-wave myocardial infarction. Status post angioplasty and stenting of the OM as well as the circumflex #2 recent diagnosis of hypertension #3 recent hospitalization with left toe infection #4 PAD with prior peripheral stenting #5 hyperlipidemia, untreated #6 strong family history of premature coronary artery disease #7 prior history of smoking #8 daily alcohol use benign renal insufficiency, creatinine 1.6 Plan .we will continue the patient on a baby aspirin daily along with [id number] mg daily, Plavix 75 mg daily,metoprolol 25 mg one tablet by mouth twice a day,we will also add a small dose of IFEOMA inhibitor to the patient's medication regime. Continue to monitor for another 24-48 hours. DNP note has been reviewed, I agree with a documented findings and plan of care. Patient was seen and examined.
[2019-06-09] MEDS ORDERED: ATORVASTATIN 40 MG TAB PO SCH (21:00)
[2019-06-10 06:49] LABS: Basophils # (A) 0.1 k/uL (0-0.2); Basophils % (A) 1 %; Eosinophils # (A) 1.1 k/uL (0-0.7); Eosinophils % (A) 11 %; HCT 42.5 % (39.0-53.0); HGB 13.9 gm/dL (13.0-17.5); Lymphocytes # (A) 0.8 k/uL (1.0-4.8); Lymphocytes % (A) 8 %; MCH 32.8 pg (25.0-35.0); MCHC 32.7 g/dL (31.0-37.0); MCV 100.3 fL (80.0-100.0); Mean Platelet Volume 8.1; Monocytes # (A) 0.8 k/uL (0-1.0); Monocytes % (A) 9 %; Neutrophils # (A) 6.9 k/uL (1.3-7.7); Neutrophils % (A) 70 %; Platelet Count 289 k/uL (150-450); RBC 4.24 m/uL (4.30-5.90); RDW 13.4 % (11.5-15.5); WBC 9.9 k/uL (3.8-10.6)
[2019-06-10] MEDS: CIPROFLOXACIN HCL 500 MG TAB PO SCH (08:40)
[2019-06-10] MEDS: ASPIRIN 81 MG PO SCH (08:40)
[2019-06-10] MEDS: CLOPIDOGREL 75 MG TAB PO SCH (08:40)
[2019-06-10] MEDS: METOPROLOL TARTRATE 25 MG TAB PO SCH (08:40)
[2019-06-10] MEDS ORDERED: LISINOPRIL 2.5 MG TAB PO SCH (09:00)
--- NOTE | 2019-06-10 11:53 | P.PN ---
Subjective Progress Note Date: 06/10/19 This is a pleasant 78-year-old -[place]el[place] gentleman who approximately 3-4 weeks ago had dropped a board on his left great toe causing a wound and it busted open, he was admitted to the hospital and treated forleft great toe ulcer infection he was initiated on IV antibiotics the wound cultures showed Pseudomonas Argento cell and severe rash she has a liquid fashions. 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 Patient denies any history of hypertension although he states he was initiated on blood pressure pills on this recent admission, denies diabetes, no hyperlipidemia, smoking approximately 10 years ago, he does drink 3 ounces of alcohol approximately on a daily basis. Patient states his sister had a myocardial infarction in her 30s and . After returning home after being discharged from the hospital, patient states that he walked to the bathroom, he then developed a headache, became very diaphoretic and lightheaded, felt like he was going to pass out. His grandson was present, helped him to sit down on the bed. He did not completely lose consciousness. Patient denies any chest pressure or chest discomfort of any sort, he denies any shortness of breath but states that he felt it was hard to breathe for a brief period of time.history and presentation showed some mild pulmonary fibrosis with no acute lung disease.CAT scan of the brain was also performed which revealed cerebral atrophy with no acute intracranial abnormality.his EKG on presentation here showed a sinus tachycardia with some mild ST elevation noted in aVR, and significant ST depression noted in the inferior and lateral leads.subsequent EKG performed showed sinus tachycardia with persistence of mild ST elevation in aVR and ST depression in leads V3 to V6. His blood pressure on arrival here 165/88, initial heart rate wasaround 100, he was 98% on room air.laboratory data was reviewed, white blood cell count 11.6, hemoglobin 14.6, platelet count 314. Sodium 139, potassium 4.7, BUN 25, creatinine of 1.6, magnesium 1.7, Initial troponin 0.036, subsequent troponin 13.7.examined my examination this morning, patient quite comfortable, he states that his headache is gone he has no lightheadedness no diaphoresis, denies any chest pain and is not short of breath. 06/09/2019 patient was taken to the cardiac catheterization lab yesterday where he u nderwent successful stenting of the OM1 of the left circumflex as well as successful stenting of the ostial circumflex by Dr. León. Overall the patient does feel significantly better today, denies any chest pain and his breathing overall has been stable.blood pressure 122/60 with a heart rate in the 80s, 94% on room air.White blood cell count 8.5, hemoglobin 12.4, platelet count 275. Sodium 140, potassium 4.7, BUN 25 and creatinine 1.2. 06/10/2019 Patient was seen and examined this morning, denies any chest pain, breathing is stable. He states that he did not sleep well through the night last night. He was having quite a bit of pain in his toe.blood pressure 132/60 with a heart rate in the 60s to 70s, 94% on room air. Objective - Vital Signs Vital signs: Vital Signs Temp 98.1 F 06/10/19 04:03 Pulse 69 06/10/19 04:03 Resp 18 06/10/19 04:03 BP 132/65 06/10/19 04:03 Pulse Ox 94 L 06/10/19 04:03 Intake & Output 06/09/19 06/10/19 06/10/19 18:59 06:59 18:59 Intake Total 480 240 Output Total 850 300 Balance -370 -60 Weight 63 kg Intake: Oral 480 240 Output: Urine 850 300 Other: Voiding Method Urinal # Voids 2 # Bowel Movements 0 - Exam PHYSICAL EXAMINATION: GENERAL:78-year-old -[place] gentleman in no acute distress at the time of my examination HEENT: Head is atraumatic, normocephalic. Pupils equal, round. Sclera anicteric. Conjunctiva are clear. Mucous membranes of the mouth are moist. Neck is supple. There is no elevated jugular venous pressure.no carotid bruit is heard. HEART EXAMINATION: heart S1 S2 1 systolic murmur is heard CHEST EXAMINATION:[ Lungs are clear to auscultation and precussion. No chest wall tenderness is noted on palpation or with deep breathing.] ABDOMEN: [ Soft, nontender. Bowel sounds are heard. No organomegaly noted]. EXTREMITIES:[ 1+ peripheral pulses with no evidence of peripheral edema and no calf tenderness noted].Patient does have a dressing in place to the left great toe, right radial site is clean and dry, good distal pulse. NEUROLOGIC [patient is awake, alert and oriented X3 . - Labs CBC & Chem 7: 06/10/19 06:16 06/09/19 06:37 Labs: Abnormal Lab Results - Last 24 Hours (Table) 06/10/19 Range/Units 06:16 RBC 4.24 L (4.30-5.90) m/uL MCV 100.3 H (80.0-100.0) fL Lymphocytes # 0.8 L (1.0-4.8) k/uL Eosinophils # 1.1 H (0-0.7) k/uL Assessment and Plan Plan: assessment and plan #1 episode of near syncope,with elevation in troponins.she'll troponin 0.036, subsequent troponin 13.7. EKG shows a sinus tachycardia with mild ST elevation in aVR and ST depression noted in the inferior lateral leads. Suggesting possible non-Q-wave myocardial infarction. Status post angioplasty and stenting of the OM as well as the circumflex #2 recent diagnosis of hypertension #3 recent hospitalization with left toe infection #4 PAD with prior peripheral stenting #5 hyperlipidemia, untreated #6 strong family history of premature coronary artery disease #7 prior history of smoking #8 daily alcohol use benign renal insufficiency, creatinine 1.6 Plan from cardiology's perspective, patient may be able to be discharged home today. We'll make him a follow-up appointment in the office with Dr. León post discharge. DNP note has been reviewed, I agree with a documented findings and plan of care. Patient was seen and examined.
[2019-06-10 12:44] VITALS: PULSE 75
--- NOTE | 2019-06-10 14:04 | NM ---
EXAMINATION TYPE: NM pul vent and perfuse DATE OF EXAM: 06/10/2019 COMPARISON: Chest x-ray 3 days ago HISTORY: Pulmonary embolism per order. Shortness of breath TECHNIQUE: Utilizing inhalation of 40.3 mCi Tc 99m DTPA aerosol and intravenous injection of 4.32 mC i of Tc 99m MAA, ventilation and perfusion images are acquired post injection in multiple projections . FINDINGS: There are some small scattered matching defects with some reverse match with ventilation defects in t he upper lungs likely product of underlying emphysematous and pulmonary fibrotic changes. No suspicio us mismatch defects identified. There is no evidence of mismatched defects. IMPRESSION: Low scintigraphic evidence for pulmonary embolism
[2019-06-10 15:24] VITALS: BP 145/67; TEMP 97.6
== END 2019-06-10 18:45 | disposition home or self-care (01) | DRG 247 ==
LOC: EC 22:47 → 3SCARD 06-08 00:34 → OBSVTOIN 06-08 09:46
PROVIDERS: ADMIT Internal Medicine; ATTEND Internal Medicine
PROC: 027035Z Dilation of Coronary Artery, One Artery with Two Drug-eluting Intraluminal Devices, Percutaneous Approach (ICD-10-PCS; principal; 2019-06-08 15:50)
PROC: B2111ZZ Fluoroscopy of Multiple Coronary Arteries using Low Osmolar Contrast (ICD-10-PCS; principal; 2019-06-08 15:50)
PROC: 4A023N7 Measurement of Cardiac Sampling and Pressure, Left Heart, Percutaneous Approach (ICD-10-PCS; principal; 2019-06-08 15:50)
PROC: B2151ZZ Fluoroscopy of Left Heart using Low Osmolar Contrast (ICD-10-PCS; principal; 2019-06-08 15:50)
DX: I21.4 Non-ST elevation (NSTEMI) myocardial infarction (principal); N17.9 Acute kidney failure, unspecified; E78.5 Hyperlipidemia, unspecified; G31.84 Mild cognitive impairment of uncertain or unknown etiology; I25.10 Atherosclerotic heart disease of native coronary artery without angina pectoris; I10 Essential (primary) hypertension; I73.9 Peripheral vascular disease, unspecified; J84.10 Pulmonary fibrosis, unspecified; Z79.1 Long term (current) use of non-steroidal anti-inflammatories (NSAID); Z82.49 Family history of ischemic heart disease and other diseases of the circulatory system; Z87.891 Personal history of nicotine dependence; Z98.42 Cataract extraction status, left eye; Z98.41 Cataract extraction status, right eye; Z88.1 Allergy status to other antibiotic agents; L03.039 Cellulitis of unspecified toe
CPT/HCPCS: 36415; 70450; 71046; 78582; 80053; 81003; 83735; 83880; 84484; 85025; 85610; 85730; 93005; 93306; 93458; 96365; 96366; 96376; 99291; C1874

== ENCOUNTER 2022-04-14 14:08 | Emergency (ER) | payer MEDICARE ==
[2022-04-14 14:18] VITALS: TEMP 98.5
[2022-04-14] MEDS ORDERED: HYDROcodone/APAP 5-325MG 1 EACH TAB PO STA (16:32)
--- NOTE | 2022-04-14 16:42 | ED ---
Extremity Problem HPI - General Chief complaint: Extremity Problem,Nontraumatic Stated complaint: RT foot infection Time Seen by Provider: 04/14/22 16:25 Source: patient, RN notes reviewed, old records reviewed Mode of arrival: ambulatory Limitations: no limitations - History of Present Illness Initial comments: 81-year-old male presents to the emergency room via wheelchair with complaints of right foot pain for the past month with redness and foul drainage between toes. Denies fevers. No cough or shortness of breath. No chest pain or abdominal pain. No nausea vomiting or diarrhea. Patient is alert and oriented to person and place only, believes it is 1992. States he lives with his grandsons. 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 Stent to right leg per grandson. MD Complaint: extremity pain, extremity swelling (right foot) -: month(s) (1) Location: right, lower extremity (foot) History of Same: No Radiation: proximal (lower leg) Severity scale (1-10): 2 Quality: aching Consistency: constant Improves with: nothing Worsens with: palpation Associated Symptoms: denies other symptoms - Related Data Home Medications Medication Instructions Recorded Confirmed Aspirin EC [Ecotrin Low Dose] 81 mg PO DAILY 06/19/21 04/14/22 Atorvastatin [Lipitor] 40 mg PO DAILY 06/19/21 04/14/22 Metoprolol Succinate [Toprol XL] 25 mg PO DAILY 06/19/21 04/14/22 Tamsulosin HCl [Flomax] 0.4 mg PO HS 04/14/22 04/14/22 Previous Rx's Medication Instructions Recorded Cephalexin [Keflex] 500 mg PO Q6HR 7 Days #28 cap 04/14/22 Allergies Allergy/AdvReac Type Severity Reaction Status Date / Time ceftriaxone [From Rocephin] Allergy Rash/Hives Verified 04/14/22 14:18 Review of Systems ROS Statement: Those systems with pertinent positive or pertinent negative responses have been documented in the HPI. ROS Other: All systems not noted in ROS Statement are negative. Past Medical History Past Medical History: Memory Impairment, Osteoarthritis (OA), Vascular Disorder Additional Past Medical History / Comment(s): Arthritis History of Any Multi-Drug Resistant Organisms: None Reported Date of last positivie culture/infection: 2008? MDRO Source:: L 5th toe Past Surgical History: Orthopedic Surgery Additional Past Surgical History / Comment(s): Cystoscopy, L wrist injury with surgery, L knee open surgery for cartlidge repair, L leg stent done in [place], [place], bilateral cataracts removed. Past Anesthesia/Blood Transfusion Reactions: No Reported Reaction Past Psychological History: No Psychological Hx Reported Smoking Status: Former smoker Past Alcohol Use History: Occasional Past Drug Use History: None Reported - Past Family History Father Family Medical History: Myocardial Infarction (SD) Additional Family Medical History / Comment(s): Father of a SD when pt was 7 yrs old. Pt cannot recall at what age his father . Mother Family Medical History: No Reported History General Exam Limitations: no limitations General appearance: alert, in no apparent distress Eye exam: Absent: scleral icterus, conjunctival injection Respiratory exam: Absent: respiratory distress, accessory muscle use Cardiovascular Exam: Present: regular rate GI/Abdominal exam: Present: soft Extremities exam: Present: other (left AKA) Right Lower Leg exam: Present: tenderness, swelling. Absent: laceration, Homans' sign Ankle exam: Present: tenderness, swelling. Absent: laceration Foot/Toe exam: Present: tenderness, swelling, abrasion (ulcerations between toe s), erythema (toes). Absent: calcaneal tenderness, tenderness at base of 5th metatarsal Neurovascular tendon exam: Absent: abnormal cap refill, extremity cold to touch Gait: not tested/not observed (left aka) Back exam: Present: full ROM. Absent: tenderness, CVA tenderness (R), CVA tenderness (L), rash noted Neurological exam: Present: alert (person and place only, states year 1992) Psychiatric exam: Present: normal affect, normal mood Skin exam: Present: warm, dry. Absent: cyanosis, diaphoretic, petechiae, pallor Course Vital Signs 04/14/22 14:15 Temperature 98.5 F Pulse Rate 87 Respiratory 20 Rate Blood Pressure 186/76 O2 Sat by Pulse 96 Oximetry Medical Decision Making - Medical Decision Making Patient presents with pain and redness to his right foot with drainage from broken blister base of great toe. On exam there are pressure ulcers between, no drainage. Foot and leg are warm to touch. CT of the right foot performed per Dr. Mcgovern showing no acute abnormality, no fracture, no sign of osteomyelitis. There is air under the nail of the big toe with no evidence of soft tissue mass. Nail bed is thickened and lifted. Labs show no evidence of leukocytosis. Patient is afebrile. The forefoot is warm, red and tender to touch therefore patient will be treated for cellulitis with Keflex as his grandson states patient has no ALLERGIES. Grandson and patient were directed to wash foot daily and dry thoroughly between the toes. Put padding between toes to prevent pressure ulcers. Follow-up with primary care doctor tomorrow. Return to the emergency room with any new concerning symptoms. Patient grandson are agreeable to this plan of care. Case discussed with Dr. Mcgovern. - Lab Data Result diagrams: 04/14/22 17:00 04/14/22 17:00 Lab Results 04/14/22 04/14/22 Range/Units 17:00 17:00 WBC 7.4 (3.8-10.6) k/uL RBC 3.65 L (4.30-5.90) m/uL Hgb 11.7 L (13.0-17.5) gm/dL Hct 35.7 L (39.0-53.0) % MCV 97.7 (80.0-100.0) fL MCH 32.0 (25.0-35.0) pg MCHC 32.8 (31.0-37.0) g/dL RDW 15.2 (11.5-15.5) % Plt Count 379 (150-450) k/uL MPV 8.4 Neutrophils % 67 % Lymphocytes % 19 % Monocytes % 6 % Eosinophils % 6 % Basophils % 1 % Neutrophils # 5.0 (1.3-7.7) k/uL Lymphocytes # 1.4 (1.0-4.8) k/uL Monocytes # 0.5 (0-1.0) k/uL Eosinophils # 0.4 (0-0.7) k/uL Basophils # 0.1 (0-0.2) k/uL Sodium 143 (137-145) mmol/L Potassium 4.3 (3.5-5.1) mmol/L Chloride 106 (98-107) mmol/L Carbon Dioxide 24 (22-30) mmol/L Anion Gap 13 mmol/L BUN 18 (9-20) mg/dL Creatinine 1.14 (0.66-1.25) mg/dL Est GFR (CKD-EPI)AfAm 70 (>60 ml/min/1.73 sqM) Est GFR (CKD-EPI)NonAf 60 (>60 ml/min/1.73 sqM) Glucose 100 H (74-99) mg/dL Calcium 8.8 (8.4-10.2) mg/dL Total Bilirubin 0.7 (0.2-1.3) mg/dL AST 24 (17-59) U/L ALT 18 (4-49) U/L Alkaline Phosphatase 178 H (38-126) U/L Total Protein 8.5 H (6.3-8.2) g/dL Albumin 4.2 (3.5-5.0) g/dL Disposition Clinical Impression: Cellulitis of foot, right Disposition: HOME SELF-CARE Condition: Good Instructions (If sedation given, give patient instructions): Cellulitis (ED) Additional Instructions: Soak foot in warm soapy water at least once a day and dry thoroughly between toes. Take antibiotics as prescribed. Follow-up with your primary care doctor this week. Return to the emergency room with any increased pain, swelling or fevers. Prescriptions: Cephalexin [Keflex] 500 mg PO Q6HR 7 Days #28 cap Is patient prescribed a controlled substance at d/c from ED?: No Referrals: Alexi Bailey MD [REFERRING] - 1-2 days Roberto Mejias MD [Primary Care Provider] - 1-2 days Time of Disposition: 18:26
[2022-04-14 17:08] LABS: Basophils # (A) 0.1 k/uL (0-0.2); Basophils % (A) 1 %; Eosinophils # (A) 0.4 k/uL (0-0.7); Eosinophils % (A) 6 %; HCT 35.7 % (39.0-53.0); HGB 11.7 gm/dL (13.0-17.5); Lymphocytes # (A) 1.4 k/uL (1.0-4.8); Lymphocytes % (A) 19 %; MCHC 32.8 g/dL (31.0-37.0); MCV 97.7 fL (80.0-100.0); Mean Platelet Volume 8.4; Monocytes # (A) 0.5 k/uL (0-1.0); Monocytes % (A) 6 %; Neutrophils % (A) 67 %; Platelet Count 379 k/uL (150-450); RBC 3.65 m/uL (4.30-5.90); RDW 15.2 % (11.5-15.5); WBC 7.4 k/uL (3.8-10.6)
[2022-04-14 17:18] LABS: Albumin 4.2 g/dL (3.5-5.0); Calcium 8.8 mg/dL (8.4-10.2); Total Bilirubin 0.7 mg/dL (0.2-1.3); Total Protein 8.5 g/dL (6.3-8.2)
[2022-04-14 17:21] LABS: Potassium 4.3 mmol/L (3.5-5.1)
--- NOTE | 2022-04-14 18:11 | CT ---
EXAMINATION TYPE: CT foot RT w con DATE OF EXAM: 04/14/2022 COMPARISON: None HISTORY: Pain, swelling RT foot/big toe CT DLP: 291.7 mGycm Automated exposure control for dose reduction was used. CONTRAST: Performed with IV Contrast, patient injected with 100 mL of Isovue 300. Images obtained from the distal tibia to the bottom of the foot with the IV contrast. The metatarsals are intact. Tarsal bones appear intact. No fracture seen. Ankle mortise is anatomic. The hindfoot is intact. No focal bone destruction. The big toe is intact. There is some air under the nail of the big toe. No evidence of a soft tissue mass. IMPRESSION: No acute abnormality of the right foot. No fracture. No sign of osteomyelitis.
[2022-04-14] MEDS ORDERED: CEPHALEXIN 500MG STARTER PACK 4 CAP BTL PO STA (18:26)
[2022-04-14 19:05] VITALS: BP 173/82; PULSE 82; RESP 18
== END 2022-04-14 19:05 | disposition home or self-care (01) ==
LOC: EC 14:08
DX: L03.115 Cellulitis of right lower limb (principal); M19.90 Unspecified osteoarthritis, unspecified site; Z87.891 Personal history of nicotine dependence; Z88.1 Allergy status to other antibiotic agents
CPT/HCPCS: 36415; 80053; 85025; 73701; 99284; Q9967

== ENCOUNTER 2022-04-28 13:11 | Observation (INO) | payer MEDICARE ==
--- NOTE | 2022-04-28 13:47 | ED ---
General Adult HPI - General Stated complaint: Foot pain/infection Source: patient, RN notes reviewed Mode of arrival: wheelchair Limitations: no limitations - History of Present Illness Initial comments: Patient is a 81 year old male presenting to the ER with a chief complaint of foot infection. Per family at bedside, he was here about 2 weeks ago for similar symptoms and was sent home with antibiotics. Since then the infection has worsened and spread into his foot and ankle. Pt denies fevers or chills. He is able to move all of his toes. 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 He also complains of an ulcer on the bottom of his right foot. Per family, it has shrunk in size. - Related Data Home Medications Medication Instructions Recorded Confirmed Aspirin EC [Ecotrin Low Dose] 81 mg PO DAILY 06/19/21 04/14/22 Atorvastatin [Lipitor] 40 mg PO DAILY 06/19/21 04/14/22 Metoprolol Succinate [Toprol XL] 25 mg PO DAILY 06/19/21 04/14/22 Tamsulosin HCl [Flomax] 0.4 mg PO HS 04/14/22 04/14/22 Previous Rx's Medication Instructions Recorded Cephalexin [Keflex] 500 mg PO Q6HR 7 Days #28 cap 04/14/22 Allergies Allergy/AdvReac Type Severity Reaction Status Date / Time ceftriaxone [From Rocephin] Allergy Rash/Hives Verified 04/14/22 14:18 Review of Systems ROS Statement: Those systems with pertinent positive or pertinent negative responses have been documented in the HPI. ROS Other: All systems not noted in ROS Statement are negative. Past Medical History Past Medical History: Memory Impairment, Osteoarthritis (OA), Vascular Disorder Additional Past Medical History / Comment(s): Arthritis History of Any Multi-Drug Resistant Organisms: None Reported Date of last positivie culture/infection: 2008? MDRO Source:: L 5th toe Past Surgical History: Orthopedic Surgery Additional Past Surgical History / Comment(s): Cystoscopy, L wrist injury with surgery, L knee open surgery for cartlidge repair, L leg stent done in [place], [place], bilateral cataracts removed. Past Anesthesia/Blood Transfusion Reactions: No Reported Reaction Past Psychological History: No Psychological Hx Reported Smoking Status: Former smoker Past Alcohol Use History: Occasional Past Drug Use History: None Reported - Past Family History Father Family Medical History: Myocardial Infarction ([place]) Additional Family Medical History / Comment(s): Father of a [place] when pt was 7 yrs old. Pt cannot recall at what age his father . Mother Family Medical History: No Reported History General Exam Limitations: no limitations General appearance: alert, in no apparent distress Head exam: Present: atraumatic, normocephalic, normal inspection Eye exam: Present: normal appearance, PERRL, EOMI. Absent: scleral icterus, conjunctival injection, periorbital swelling ENT exam: Present: normal exam, mucous membranes moist Neck exam: Present: normal inspection. Absent: tenderness, meningismus, lympha denopathy Respiratory exam: Present: normal lung sounds bilaterally. Absent: respiratory distress, wheezes, rales, rhonchi, stridor Cardiovascular Exam: Present: regular rate, normal rhythm, normal heart sounds, other (faint dorsalis pedis pulse with doppler ). Absent: systolic murmur, diastolic murmur, rubs, gallop, clicks GI/Abdominal exam: Present: soft, normal bowel sounds. Absent: distended, tenderness, guarding, rebound, rigid Extremities exam: Present: full ROM, tenderness (R great toe and foot ), other (edema right great toe and foot ) Back exam: Present: normal inspection Neurological exam: Present: alert, oriented X3, CN II-XII intact Psychiatric exam: Present: normal affect, normal mood Skin exam: Present: warm (cool to touch ), intact (pressure ulcer on lateral aspect of heel), other (right great toe nail raised. Dried blood surrounding cuticle. ) Course Vital Signs 04/28/22 13:28 Temperature 97.4 F L Pulse Rate 94 Respiratory 16 Rate Blood Pressure 110/61 O2 Sat by Pulse 95 Oximetry Medical Decision Making - Medical Decision Making X-ray shows concerns for osteomyelitis patient does have mild leukocytosis, lactic acidosis. Patient was started on some antibiotics and vancomycin, Zosyn case discussed with Dr. Rolle patient will be admitted for vascular consult. - Lab Data Result diagrams: 04/28/22 14:03 04/28/22 14:03 Lab Results 04/28/22 04/28/22 04/28/22 Range/Units 14:03 14:03 14:03 WBC 15.0 H (3.8-10.6) k/uL RBC 3.93 L (4.30-5.90) m/uL Hgb 12.3 L (13.0-17.5) gm/dL Hct 37.8 L (39.0-53.0) % MCV 96.2 (80.0-100.0) fL MCH 31.3 (25.0-35.0) pg MCHC 32.5 (31.0-37.0) g/dL RDW 14.7 (11.5-15.5) % Plt Count 405 (150-450) k/uL MPV 8.2 Neutrophils % 79 % Lymphocytes % 13 % Monocytes % 3 % Eosinophils % 3 % Basophils % 1 % Neutrophils # 11.8 H (1.3-7.7) k/uL Lymphocytes # 1.9 (1.0-4.8) k/uL Monocytes # 0.5 (0-1.0) k/uL Eosinophils # 0.5 (0-0.7) k/uL Basophils # 0.1 (0-0.2) k/uL Hypochromasia Slight PT (9.0-12.0) sec INR (<1.2) APTT (22.0-30.0) sec Sodium 144 (137-145) mmol/L Potassium 4.4 (3.5-5.1) mmol/L Chloride 109 H (98-107) mmol/L Carbon Dioxide 21 L (22-30) mmol/L Anion Gap 14 mmol/L BUN 13 (9-20) mg/dL Creatinine 1.10 (0.66-1.25) mg/dL Est GFR (CKD-EPI)AfAm 73 (>60 ml/min/1.73 sqM) Est GFR (CKD-EPI)NonAf 63 (>60 ml/min/1.73 sqM) Glucose 114 H (74-99) mg/dL Plasma Lactic Acid Varinder 2.5 H* (0.7-2.0) mmol/L Calcium 8.6 (8.4-10.2) mg/dL Total Bilirubin 0.6 (0.2-1.3) mg/dL AST 26 (17-59) U/L ALT 19 (4-49) U/L Alkaline Phosphatase 161 H (38-126) U/L C-Reactive Protein 4.4 H (<1.0) mg/dL Total Protein 8.7 H (6.3-8.2) g/dL Albumin 4.3 (3.5-5.0) g/dL 04/28/22 Range/Units 14:03 WBC (3.8-10.6) k/uL RBC (4.30-5.90) m/uL Hgb (13.0-17.5) gm/dL Hct (39.0-53.0) % MCV (80.0-100.0) fL MCH (25.0-35.0) pg MCHC (31.0-37.0) g/dL RDW (11.5-15.5) % Plt Count (150-450) k/uL MPV Neutrophils % % Lymphocytes % % Monocytes % % Eosinophils % % Basophils % % Neutrophils # (1.3-7.7) k/uL Lymphocytes # (1.0-4.8) k/uL Monocytes # (0-1.0) k/uL Eosinophils # (0-0.7) k/uL Basophils # (0-0.2) k/uL Hypochromasia PT 10.1 (9.0-12.0) sec INR 0.9 (<1.2) APTT 25.5 (22.0-30.0) sec Sodium (137-145) mmol/L Potassium (3.5-5.1) mmol/L Chloride (98-107) mmol/L Carbon Dioxide (22-30) mmol/L Anion Gap mmol/L BUN (9-20) mg/dL Creatinine (0.66-1.25) mg/dL Est GFR (CKD-EPI)AfAm (>60 ml/min/1.73 sqM) Est GFR (CKD-EPI)NonAf (>60 ml/min/1.73 sqM) Glucose (74-99) mg/dL Plasma Lactic Acid Varinder (0.7-2.0) mmol/L Calcium (8.4-10.2) mg/dL Total Bilirubin (0.2-1.3) mg/dL AST (17-59) U/L ALT (4-49) U/L Alkaline Phosphatase (38-126) U/L C-Reactive Protein (<1.0) mg/dL Total Protein (6.3-8.2) g/dL Albumin (3.5-5.0) g/dL Disposition Clinical Impression: Osteomyelitis, Cellulitis of foot, right Disposition: ADMITTED IP TO THIS HOSP Condition: Fair Referrals: Roberto Mejias MD [Primary Care Provider] - 1-2 days Time of Disposition: 15:05
[2022-04-28 14:13] LABS: Basophils # (A) 0.1 k/uL (0-0.2); Basophils % (A) 1 %; Eosinophils # (A) 0.5 k/uL (0-0.7); Eosinophils % (A) 3 %; HCT 37.8 % (39.0-53.0); HGB 12.3 gm/dL (13.0-17.5); Hypochromasia Slight; Lymphocytes # (A) 1.9 k/uL (1.0-4.8); Lymphocytes % (A) 13 %; MCH 31.3 pg (25.0-35.0); MCHC 32.5 g/dL (31.0-37.0); MCV 96.2 fL (80.0-100.0); Mean Platelet Volume 8.2; Monocytes # (A) 0.5 k/uL (0-1.0); Monocytes % (A) 3 %; Neutrophils # (A) 11.8 k/uL (1.3-7.7); Neutrophils % (A) 79 %; Platelet Count 405 k/uL (150-450); RBC 3.93 m/uL (4.30-5.90); RDW 14.7 % (11.5-15.5)
--- NOTE | 2022-04-28 14:21 | XR ---
Right foot HISTORY: Infection. COMPARISON: None. TECHNIQUE: 3 views the right foot were obtained. FINDINGS: There is subchondral sclerosis first MTP joint and to a lesser extent interphalangeal joint of the bi g toe. The joint spaces are well-maintained. There is mild subchondral sclerosis and cystic changes first cuneiform, second cuneiform lung medial aspect of the left navicular bone. There is no cortical disruption or periosteal reaction. There is no fracture or dislocation. IMPRESSION: Possible osteomyelitis in the medial aspect of the mid foot. Three-phase bone scan might be useful f or further evaluation.
[2022-04-28 14:26] LABS: INR 0.9 (<1.2); Partial Thromboplastin Time 25.5 sec (22.0-30.0); Prothrombin Time 10.1 sec (9.0-12.0)
[2022-04-28 14:31] LABS: Albumin 4.3 g/dL (3.5-5.0); Calcium 8.6 mg/dL (8.4-10.2); Potassium 4.4 mmol/L (3.5-5.1); Total Bilirubin 0.6 mg/dL (0.2-1.3); Total Protein 8.7 g/dL (6.3-8.2)
[2022-04-28 14:48] LABS: C Reactive Protein 4.4 mg/dL (<1.0)
[2022-04-28] MEDS ORDERED: VANCOMYCIN IV PER PHARMACY 1 EACH MISC MISCELLANE PRN (15:04)
[2022-04-28] MEDS ORDERED: NALOXONE 0.4 MG/ML 1 ML VIAL IV PRN (15:22)
[2022-04-28] MEDS ORDERED: ONDANSETRON 4 MG/2 ML VIAL IVP PRN (15:22)
[2022-04-28] MEDS ORDERED: PIPERACILLIN-TAZOBACTAM 3.375 GM in SODIUM CHLORIDE 0.9% 100 ML IVPB ONE (15:30)
[2022-04-28] MEDS: SODIUM CHLORIDE 0.9% 1,000 ML IV SCH (15:51)
--- NOTE | 2022-04-28 15:55 | P.HPIM ---
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 Patient says that 2 weeks ago he had similar issues and was sent home on oral antibiotics with cephalexin. He completed this course but noted that his right lower extremity did not improve. In the pain and swelling of his right lower extremity had actually increased. He denies fevers, chills, nausea, vomiting, chest pain, palpitations, syncope, presyncope, abdominal pain, constipation, diarrhea, dysuria, dyschezia, numbness/weakness of extremities. In the emergency room, patient was afebrile, 110/61, heart rate 94, 95% on room air. CBC was remarkable for leukocytosis to 15. Chemistries show bicarb of 21. Lactic acid was 2.5. Liver function tests show an elevated alkaline phosphatase at 161, elevated total protein 8.7. CRP was elevated at 4.4. Foot x-ray suspicious for osteomyelitis of the medial aspect of the midfoot. Patient was treated with vancomycin and Zosyn and medicine was asked to admit the patient for further workup. All Systems reviewed and pertinent positives and negatives noted in HPI, all other symptoms are negative Gen: awake, alert Gen: in no apparent distress, resting comfortably in bed Eyes: PERRL, no scleral injection or icterus HENT: normocephalic, atraumatic, good hearing acuity, moist mucous membranes Neck: no tracheal deviation, full range of motion Resp: good air exchange, breathing comfortably with no accessory muscle use, no tactile fremitus CVS: good distal perfusion x 4, no pitting edema GI: soft, NTTP, ND, no hepatosplenomegaly : no suprapubic tenderness, no CVAT, king catheter not present MSK: no clubbing, no cyanosis, no noted contractures of extremities, AKA of left lower extremity, right lower extremity with edema along the medial aspect of the foot Skin: no noted rashes, petechiae; temperature of skin is appropriate Neuro: moving all extremities without signs of weakness, CN II-XII intact Psych: cooperative, euthymic mood, insight and judgment intact Labs and imaging as above Assessment/plan: Acute osteomyelitis Severe PAD -Admit inpatient -ID consult -Vascular surgery consult -Vancomycin, Zosyn -Follow blood cultures -PT/OT -Pain control -Bowel regimen CAD HTN HLD BPH -Home medications reviewed and reconciled Patient is full code DVT prophylaxis with enoxaparin Past Medical History Past Medical History: Memory Impairment, Osteoarthritis (OA), Vascular Disorder Additional Past Medical History / Comment(s): Arthritis History of Any Multi-Drug Resistant Organisms: None Reported Date of last positivie culture/infection: 2008? MDRO Source:: L 5th toe Past Surgical History: Orthopedic Surgery Additional Past Surgical History / Comment(s): Cystoscopy, L wrist injury with surgery, L knee open surgery for cartlidge repair, L leg stent done in [place], bilateral cataracts removed. Past Anesthesia/Blood Transfusion Reactions: No Reported Reaction Past Psychological History: No Psychological Hx Reported Smoking Status: Former smoker Past Alcohol Use History: Occasional Past Drug Use History: None Reported - Past Family History Father Family Medical History: Myocardial Infarction ([place]) Additional Family Medical History / Comment(s): Father of a [place] when pt was 7 yrs old. Pt cannot recall at what age his father . Mother Family Medical History: No Reported History Medications and Allergies Home Medications Medication Instructions Recorded Confirmed Type Aspirin EC [Ecotrin Low Dose] 81 mg PO DAILY 06/19/21 04/28/22 History Atorvastatin [Lipitor] 40 mg PO DAILY 06/19/21 04/28/22 History Metoprolol Succinate [Toprol XL] 25 mg PO DAILY 06/19/21 04/28/22 History Tamsulosin HCl [Flomax] 0.4 mg PO DAILY 04/14/22 04/28/22 History Losartan Potassium [Cozaar] 25 mg PO DAILY 04/28/22 04/28/22 History Allergies Allergy/AdvReac Type Severity Reaction Status Date / Time ceftriaxone [From Rocephin] Allergy Rash/Hives Verified 04/28/22 15:32 Physical Exam Osteopathic Statement: *. No significant issues noted on an osteopathic structural exam other than those noted in the History and Physical/Consult. Vitals: Vital Signs Temp Pulse Resp BP Pulse Ox 04/28/22 13:28 97.4 F L 94 16 110/61 95 Intake and Output 04/28/22 04/28/22 04/28/22 06:59 14:59 22:59 Other: Weight 58.967 kg Results CBC & Chem 7: 04/28/22 14:03 04/28/22 14:03 Labs: Abnormal Lab Results - Last 24 Hours (Table) 04/28/22 04/28/22 04/28/22 Range/Units 14:03 14:03 14:03 WBC 15.0 H (3.8-10.6) k/uL RBC 3.93 L (4.30-5.90) m/uL Hgb 12.3 L (13.0-17.5) gm/dL Hct 37.8 L (39.0-53.0) % Neutrophils # 11.8 H (1.3-7.7) k/uL Chloride 109 H (98-107) mmol/L Carbon Dioxide 21 L (22-30) mmol/L Glucose 114 H (74-99) mg/dL Plasma Lactic Acid Varinder 2.5 H* (0.7-2.0) mmol/L Alkaline Phosphatase 161 H (38-126) U/L C-Reactive Protein 4.4 H (<1.0) mg/dL Total Protein 8.7 H (6.3-8.2) g/dL
[2022-04-28] MEDS: HYDROcodone/APAP 5-325MG 1 EACH TAB PO PRN (16:37)
[2022-04-28] MEDS: VANCOMYCIN 1,000 MG in SODIUM CHLORIDE 0.9% 250 ML IVPB SCH (19:33)
[2022-04-29] MEDS ORDERED: PIPERACILLIN-TAZOBACTAM 3.375 GM in SODIUM CHLORIDE 0.9% 100 ML IVPB SCH ×2
[2022-04-29] MEDS: SODIUM CHLORIDE 0.9% 1,000 ML IV SCH ×2 (05:40→08:11)
--- NOTE | 2022-04-29 07:56 | P.CONS ---
History of Present Illness - Reason for Consult Consult date: 04/28/22 Osteomyelitis Requesting physician: Brent Rolle - Chief Complaint Right lower extremity pain and swelling x few days - History of Present Illness Patient is a patient is a 81-year-old -[place] male with a past medical history significant for peripheral arterial disease in this patient with status post left [id number] amputation hypertension hyperlipidemia coronary artery disease presenting to the hospital for evaluation of right lower extremity pain and swelling patient symptoms started about 2 weeks ago especially involving his right big toe patient denies any history of any trauma he did have a swelling redness and pain to the right big toe describing to be more of a dull aching to sharp 6-7 out of 10 no radiation patient apparently has been evaluated and treated with oral Keflex without any significant improvement has the patient presented to hospital on arrival to the ER the patient was afebrile patient did have white count of 15,000 with a left shift creatinine has been normal lactic acid was elevated liver enzymes are normal CRP is elevated patient did have a x- ray of the right foot concerning for possible osteomyelitis medial aspect of the midfoot did not mention any significant changes to the right big toe patient was started on vancomycin and Zosyn has been admitted to the hospital infectious disease was consulted for further management of antibiotic therapy Review of Systems Positive point has been mentioned in the HPI rest of the systems are negative Past Medical History Past Medical History: Memory Impairment, Osteoarthritis (OA), Vascular Disorder Additional Past Medical History / Comment(s): Arthritis History of Any Multi-Drug Resistant Organisms: None Reported Year Discovered:: 2008? MDRO Source:: L 5th toe Past Surgical History: Orthopedic Surgery Additional Past Surgical History / Comment(s): Cystoscopy, L wrist injury with surgery, L knee open surgery for cartlidge repair, L leg stent done in [place], [place], bilateral cataracts removed. Past Anesthesia/Blood Transfusion Reactions: No Reported Reaction Past Psychological History: No Psychological Hx Reported Smoking Status: Former smoker Past Alcohol Use History: Occasional Past Drug Use History: None Reported - Past Family History Father Family Medical History: Myocardial Infarction ([place]) Additional Family Medical History / Comment(s): Father of a [place] when pt was 7 yrs old. Pt cannot recall at what age his father . Mother Family Medical History: No Reported History Medications and Allergies Home Medications Medication Instructions Recorded Confirmed Type Aspirin EC [Ecotrin Low Dose] 81 mg PO DAILY 06/19/21 04/28/22 History Atorvastatin [Lipitor] 40 mg PO DAILY 06/19/21 04/28/22 History Metoprolol Succinate [Toprol XL] 25 mg PO DAILY 06/19/21 04/28/22 History Tamsulosin HCl [Flomax] 0.4 mg PO DAILY 04/14/22 04/28/22 History Losartan Potassium [Cozaar] 25 mg PO DAILY 04/28/22 04/28/22 History Doxycycline [Vibramycin] 100 mg PO BID 10 Days #20 capsule 04/30/22 Rx HYDROcodone/APAP 5-325MG [[place] 1 each PO Q4HR PRN #18 tab 04/30/22 Rx 5-325] Allergies Allergy/AdvReac Type Severity Reaction Status Date / Time ceftriaxone [From Rocephin] Allergy Rash/Hives Verified 04/28/22 15:32 Physical Exam Vitals: Vital Signs Temp Pulse Pulse Resp BP BP Pulse Ox 04/28/22 16:58 98.0 F 103 H 18 183/84 98 04/28/22 15:52 105 H 18 169/90 97 04/28/22 13:28 97.4 F L 94 16 110/61 95 Intake and Output 04/28/22 04/28/22 04/28/22 06:59 14:59 22:59 Other: Weight 58.967 kg 58.967 kg GENERAL DESCRIPTION: And bili male lying in bed, no distress. No tachypnea or accessory muscle of respiration use. HEENT: Shows Pallor , no scleral icterus. Oral mucous membrane is dry. No pharyngeal erythema or thrush NECK: Trachea central, no thyromegaly. LUNGS: Unlabored breathing. Clear to auscultation anteriorly. No wheeze or crackle. HEART: S1, S2, regular rate and rhythm. No loud murmur ABDOMEN: Soft, no tenderness , guarding or rigidity, no organomegaly EXTREMITIES: Right big toe did have some swelling minimal dryness is no swelling or redness on the dorsum aspect of his right foot open wound or drainage. SKIN: No rash, no masses palpable. NEUROLOGICAL: The patient is awake, alert, oriented x3, mood and affect normal. Results CBC & Chem 7: 04/29/22 04:07 04/30/22 07:05 Labs: Abnormal Lab Results - Last 24 Hours (Table) 04/28/22 04/28/22 04/28/22 Range/Units 14:03 14:03 14:03 WBC 15.0 H (3.8-10.6) k/uL RBC 3.93 L (4.30-5.90) m/uL Hgb 12.3 L (13.0-17.5) gm/dL Hct 37.8 L (39.0-53.0) % Neutrophils # 11.8 H (1.3-7.7) k/uL Chloride 109 H (98-107) mmol/L Carbon Dioxide 21 L (22-30) mmol/L Glucose 114 H (74-99) mg/dL Plasma Lactic Acid Varinder 2.5 H* (0.7-2.0) mmol/L Alkaline Phosphatase 161 H (38-126) U/L C-Reactive Protein 4.4 H (<1.0) mg/dL Total Protein 8.7 H (6.3-8.2) g/dL Assessment and Plan (1) Cellulitis of foot, right Status: Acute Code(s): L03.115 - CELLULITIS OF RIGHT LOWER LIMB SNOMED Code(s): 259290937 Plan: 1patient presented to hospital with right big toe pain swelling and redness in this patient who did have history of significant peripheral arterial disease he did have abnormal x-ray describing abnormality in the midfoot with the patient main symptom remains to be right big toe currently do not have any open wound to the right midfoot area and will need to further investigation to better define his underlying pathology. 2we will obtain a sed rate and a bone scan. 3continue with the vancomycin however discontinue Zosyn decrease risk of nephrotoxicity. 4await vascular surgery evaluation. We will follow on clinical condition and cultures to further adjust medication if needed Thank you for this consultation will follow this patient along with you Time with Patient: Greater than 30
[2022-04-29] MEDS: ATORVASTATIN 40 MG TAB PO SCH (08:10)
[2022-04-29] MEDS: METOPROLOL SUCCINATE (ER) 25 MG TAB.ER.24H PO SCH (08:10)
[2022-04-29] MEDS: LOSARTAN 25 MG TAB PO SCH (08:10)
[2022-04-29] MEDS: TAMSULOSIN 0.4 MG CAP.ER.24H PO SCH (08:10)
[2022-04-29] MEDS: ASPIRIN 81 MG PO SCH (08:10)
[2022-04-29] MEDS: VANCOMYCIN 1,000 MG in SODIUM CHLORIDE 0.9% 250 ML IVPB SCH (08:37)
[2022-04-29] MEDS: ENOXAPARIN 40 MG/0.4 ML SYRINGE SQ SCH (08:37)
[2022-04-29 09:28] LABS: Erythrocyte Sedimentation Rate 75 mm/Hr (0-20)
[2022-04-29 09:40] LABS: African American GFR (CKD) 66.7 (60.0-200.0); Anion Gap 12.7 mmol/L (10.00-18.00); BUN/Creat Ratio 9.07 Ratio (12.00-20.00); Blood Urea Nitrogen 10.7 mg/dL (9.0-27.0); Calcium 8.3 mg/dL (8.7-10.3); Carbon Dioxide 20.4 mmol/L (20.0-27.5); Magnesium 1.6 mg/dL (1.5-2.4); Non-African American GFR(CKD) 57.5 (60.0-200.0); Potassium 4.3 mmol/L (3.5-5.5)
[2022-04-29 10:54] VITALS: BMI 18.1
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
[2022-04-29 11:17] LABS: Basophils # (A) 0.13 X 10*3/uL (0.00-0.10); Eosinophils # (A) 0.48 X 10*3/uL (0.04-0.35); Eosinophils % (A) 3.7 %; HCT 33.7 % (39.6-50.0); Immature Grans, Automated 0.5 %; Lymphocytes # (A) 1.08 X 10*3/uL (0.90-5.00); Lymphocytes % (A) 8.3 %; MCH 31.2 pg (27.0-32.0); MCHC 32.6 g/dL (32.0-37.0); MCV 95.5 fL (80.0-97.0); Mean Platelet Volume 10.7 fL (9.5-12.2); Monocytes # (A) 0.82 X 10*3/uL (0.20-1.00); Monocytes % (A) 6.3 %; NRBC Per 100 WBC 0 /100 WBCS (0.0-0.0); Neutrophils # (A) 10.38 X 10*3/uL (1.80-7.70); Neutrophils % (A) 80.2 %; Platelet Count 389 X 10*3/uL (140-440); RBC 3.53 X 10*6/uL (4.40-5.60); RBC Morphology NORMAL; RDW 15.4 % (11.5-14.5); WBC 12.95 X 10*3/uL (4.50-10.00)
--- NOTE | 2022-04-29 11:34 | P.PN ---
Subjective Progress Note Date: 04/29/22 81-year-old man with medical history of CAD, severe PAD with AKA of left lower extremity, hypertension, hyperlipidemia, BPH presented with right lower extremity pain and swelling. In the emergency room, patient was afebrile, 110/61, HR 94, 95% on room air. CBC was remarkable for leukocytosis to 15. Chemistries show bicarb of 21. Lactic acid was 2.5. Liver function tests show an elevated alkaline phosphatase at 161, elevated total protein 8.7. CRP was elevated at 4.4. Foot x-ray suspicious for osteomyelitis of the medial aspect of the midfoot. Patient was treated with vancomycin and Zosyn and medicine was asked to admit the patient for further workup. Infectious disease was consulted and Zosyn was discontinued. Bone scan is currently pending. Vascular surgery consulted. Patient was seen and examined. No acute events overnight. Patient reports well controlled pain in his right foot. He has no other complaints today. General: non toxic, no distress, appears at stated age Derm: warm, dry Head: atraumatic, normocephalic, symmetric Eyes: EOMI, no lid lag, anicteric sclera Mouth: no lip lesion, mucus membranes moist Cardiovascular: S1S2 reg, no murmur Lungs: CTA bilateral, no rhonchi, no rales , no accessory muscle use Ext: no gross muscle atrophy, no edema, no contractures, left lower extremity AKA, swelling along the medial aspect of the right foot Neuro: no focal neuro deficits Psych: Alert, oriented, appropriate affect #Sepsis related to acute osteomyelitis #Lactic acidosis #Severe PAD #Normocytic anemia Chronic conditions: CAD, hypertension, dyslipidemia, BPH Blood cultures pending. Continue vancomycin. Infectious disease on board. Bone scan pending. Vascular surgery consulted. Most recent lactic acid 1.8. Discontinue IVF and encourage hydration by mouth. No signs of active bleeding. Continue to monitor hemoglobin. Transfuse if hemoglobin less than 7. Continue aspirin, Lipitor and beta giovanny. Restart losartan, monitor vitals, adjust medication if necessary. Restart Flomax. Lovenox for DVT prophylaxis. CODE STATUS: FULL CODE Disposition: Depending on clinical course. Objective - Vital Signs Vital signs: Vital Signs Temp 98.0 F 04/29/22 08:00 Pulse 101 H 04/29/22 08:00 Resp 16 04/29/22 08:00 BP 182/80 04/29/22 02:00 Pulse Ox 98 04/29/22 08:00 FiO2 Intake & Output 04/28/22 04/29/22 04/29/22 18:59 06:59 18:59 Output Total 652 Balance -652 Weight 58.967 kg Output: Urine 650 Stool 2 Other: Voiding Method Urinal - Labs CBC & Chem 7: 04/29/22 04:07 04/29/22 04:07 Labs: Abnormal Lab Results - Last 24 Hours (Table) 04/28/22 04/28/22 04/28/22 Range/Units 14:03 14:03 14:03 WBC 15.0 H (3.8-10.6) k/uL RBC 3.93 L (4.30-5.90) m/uL Hgb 12.3 L (13.0-17.5) gm/dL Hct 37.8 L (39.0-53.0) % Neutrophils # 11.8 H (1.3-7.7) k/uL Chloride 109 H (98-107) mmol/L Carbon Dioxide 21 L (22-30) mmol/L Glucose 114 H (74-99) mg/dL Plasma Lactic Acid Varinder 2.5 H* (0.7-2.0) mmol/L Alkaline Phosphatase 161 H (38-126) U/L C-Reactive Protein 4.4 H (<1.0) mg/dL Total Protein 8.7 H (6.3-8.2) g/dL 04/28/22 Range/Units 17:02 WBC (3.8-10.6) k/uL RBC (4.30-5.90) m/uL Hgb (13.0-17.5) gm/dL Hct (39.0-53.0) % Neutrophils # (1.3-7.7) k/uL Chloride (98-107) mmol/L Carbon Dioxide (22-30) mmol/L Glucose (74-99) mg/dL Plasma Lactic Acid Varinder 2.6 H* (0.7-2.0) mmol/L Alkaline Phosphatase (38-126) U/L C-Reactive Protein (<1.0) mg/dL Total Protein (6.3-8.2) g/dL
--- NOTE | 2022-04-29 16:17 | NM ---
EXAMINATION TYPE: NM bone 3 phase DATE OF EXAM: 04/29/2022 COMPARISON: Three-phase bone scan June 05, 2019. History of left lower extremity amputation. HISTORY: Right first toe swelling and pain rule out osteomyelitis. Triple phase bone scintigraphy was performed following the injection of 21.7 mCi Tc 99m MDP. Immedia te images and 5.5 hours post injection images acquired. FINDINGS: Exam is slightly suboptimal due to absent distal left lower extremity. Delayed imaging call hernan shows no suspicious increased radiotracer uptake at area of clinical concern right first toe to s uggest acute osteomyelitis at this level. IMPRESSION: As above.
--- NOTE | 2022-04-29 23:40 | P.PN ---
Subjective Progress Note Date: 04/29/22 Principal diagnosis: Right big toe infection and question of possible osteomyelitis Patient is a 81-year-old -[place] male with a past medical history significant for severe PAD in this patient who is status post left qopao-uaq-[id number] amputation presenting to the hospital with left big toe pain and swelling and concern for possible cellulitis with abnormal x-ray suspicious forOsteomyelitis however the bone scan completed subsequently has been negative. On today's evaluation that is 04/29/2022, the patient denies having any fever or any chills the patient is breathing comfortably on combination no chest pain shortness of breath or cough no abdominal pain pain to the right big toe and foot has decreased intensity and no drainage Objective - Vital Signs Vital signs: Vital Signs Temp 97.4 F L 04/29/22 14:00 Pulse 96 04/29/22 14:00 Resp 16 04/29/22 14:00 BP 168/77 04/29/22 14:00 Pulse Ox 98 04/29/22 14:00 FiO2 Intake & Output 04/28/22 04/29/22 04/29/22 18:59 06:59 18:59 Output Total 652 400 Balance -652 -400 Weight 58.967 kg 58.967 kg Output: Urine 650 400 Stool 2 Other: Voiding Method Urinal # Voids 1 # Bowel Movements 1 - Exam GENERAL DESCRIPTION: An elderly male lying in bed in no distress RESPIRATORY SYSTEM: Unlabored breathing , decreased breath sounds at bases HEART: S1 S2 regular rate and rhythm , ABDOMEN: Soft , no tenderness EXTREMITIES: Right big toe and minimal swelling no significant redness no redness or tenderness on the dorsal aspect of the right foot - Labs CBC & Chem 7: 04/29/22 04:07 04/29/22 04:07 Labs: Abnormal Lab Results - Last 24 Hours (Table) 04/28/22 04/29/22 04/29/22 Range/Units 17:02 04:07 04:07 WBC 12.95 H (4.50-10.00) X 10*3/uL RBC 3.53 L (4.40-5.60) X 10*6/uL Hgb 11.0 L (13.0-17.0) g/dL Hct 33.7 L (39.6-50.0) % RDW 15.4 H (11.5-14.5) % Immature Gran # 0.06 H (0.00-0.04) X 10*3/uL Neutrophils # 10.38 H (1.80-7.70) X 10*3/uL Eosinophils # 0.48 H (0.04-0.35) X 10*3/uL Basophils # 0.13 H (0.00-0.10) X 10*3/uL ESR 75 H (0-20) mm/Hr Est GFR (CKD-EPI)NonAf 57.5 L (60.0-200.0) BUN/Creatinine Ratio 9.07 L (12.00-20.00) Ratio Plasma Lactic Acid Varinder 2.6 H* (0.7-2.0) mmol/L Calcium 8.3 L (8.7-10.3) mg/dL Assessment and Plan (1) Cellulitis of foot, right Current Visit: Yes Status: Acute Code(s): L03.115 - CELLULITIS OF RIGHT LOWER LIMB SNOMED Code(s): 373490349 Plan: 1patient presented to hospital with right big toe pain swelling and redness in this patient who did have history of significant peripheral arterial disease he did have abnormal x-ray describing abnormality in the midfoot with the patient main symptom remains to be right big toe currently do not have any open wound to the right midfoot area 2patient bone scan was negative for osteomyelitis. 3patient to continue with the vancomycin and monitor clinical course closely Time with Patient: Less than 30
[2022-04-30] MEDS: HYDROcodone/APAP 5-325MG 1 EACH TAB PO PRN ×2 (02:14→11:13)
[2022-04-30 07:54] VITALS: TEMP 97.9
--- NOTE | 2022-04-30 10:37 | P.PN ---
Subjective Progress Note Date: 04/30/22 Principal diagnosis: Patient was seen and examined is a follow-up for possible right great toe osteomyelitis. Patient has a history of peripheral arterial disease, records were requested and received from [facility]. Patient has right SFA stent in place with last report stating it was patent. Bone scan reports no evidence of osteomyelitis in the right great toe. He's been afebrile. Denies any fevers or chills. No pain in the right lower extremity other than over the right great toe. Objective - Vital Signs Vital signs: Vital Signs Temp 97.9 F 04/30/22 07:53 Pulse 70 04/30/22 07:53 Resp 16 04/30/22 07:53 BP 169/79 04/30/22 07:53 Pulse Ox 95 04/30/22 07:53 FiO2 Intake & Output 04/29/22 04/30/22 04/30/22 18:59 06:59 18:59 Intake Total 480 Output Total 400 950 150 Balance 80 -950 -150 Weight 58.967 kg Intake: Oral 480 Output: Urine 400 950 150 Other: Voiding Method Bedpan Urinal # Voids 3 1 # Bowel Movements 6 - Exam General appearance: The patient is alert, oriented, appears in no acute distress. HET: Head is normocephalic and atraumatic. Neck: Supple without lymphadenopathy. Trachea midline. No audible carotid bruit. Heart: S1 S2. Regular rate and rhythm. Lungs: Clear to auscultation bilaterally. Abdomen: Soft, nontender, nondistended. Extremities: Palpable bilateral femoral pulse. Left vuhgg-vtx-gkot amputation, stump well-healed. Right lower extremity with scarring, pressure ulcer to her right heel, no redness or drainage. Right great toe with some swelling, tender to palpate. Toenail appears to be loose. Monophasic popliteal and PT Doppler signal. Unable to obtain DP signal. Neurological: Alert and oriented 2. - Labs CBC & Chem 7: 04/29/22 04:07 04/30/22 07:05 Labs: Abnormal Lab Results - Last 24 Hours (Table) 04/29/22 Range/Units 04:07 WBC 12.95 H (4.50-10.00) X 10*3/uL RBC 3.53 L (4.40-5.60) X 10*6/uL Hgb 11.0 L (13.0-17.0) g/dL Hct 33.7 L (39.6-50.0) % RDW 15.4 H (11.5-14.5) % Immature Gran # 0.06 H (0.00-0.04) X 10*3/uL Neutrophils # 10.38 H (1.80-7.70) X 10*3/uL Eosinophils # 0.48 H (0.04-0.35) X 10*3/uL Basophils # 0.13 H (0.00-0.10) X 10*3/uL Microbiology - Last 24 Hours (Table) 04/28/22 14:03 Blood Culture - Preliminary Blood No Growth after 24 hours 04/28/22 14:03 Blood Culture - Preliminary Blood No Growth after 24 hours Assessment and Plan Assessment: 1. History of peripheral arterial disease with right SFA stent 2. Possible osteomyelitis of right foot 3. Chronic nonhealing pressure ulcer to right heel 4. Previous left zcqer-zxw-rjlm amputation Plan: 1. Continue with recommendations from infectious disease 2. No indication for any vascular surgical intervention 3. Discussed with patient follow-up with his vascular surgeon within 1-2 weeks Thank you for this consultation, we will sign off at this time. The impression and plan of care has been dictated as directed. Dr. Jimenez I performed a history and examination of this patient, discussed the same with the dictator. I agree with the dictator's note ,documented as a scribe. Any additional findings or plans will be noted.
[2022-04-30] MEDS: METOPROLOL SUCCINATE (ER) 25 MG TAB.ER.24H PO SCH (10:44)
[2022-04-30] MEDS: ATORVASTATIN 40 MG TAB PO SCH (10:44)
[2022-04-30] MEDS: ASPIRIN 81 MG PO SCH (10:44)
[2022-04-30] MEDS: LOSARTAN 25 MG TAB PO SCH (10:44)
[2022-04-30] MEDS: VANCOMYCIN 1,000 MG in SODIUM CHLORIDE 0.9% 250 ML IVPB SCH (10:46)
[2022-04-30] MEDS: ENOXAPARIN 40 MG/0.4 ML SYRINGE SQ SCH (10:46)
[2022-04-30] MEDS: TAMSULOSIN 0.4 MG CAP.ER.24H PO SCH (10:46)
--- NOTE | 2022-04-30 11:32 | P.DS ---
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 In the emergency room, patient was afebrile, 110/61, HR 94, 95% on room air. CBC was remarkable for leukocytosis to 15. Chemistries show bicarb of 21. Lactic acid was 2.5. Liver function tests show an elevated alkaline phosphatase at 161, elevated total protein 8.7. CRP was elevated at 4.4. Foot x-ray suspicious for osteomyelitis of the medial aspect of the midfoot. Patient was treated with vancomycin and Zosyn and medicine was asked to admit the patient for further workup. Infectious disease was consulted and Zosyn was discontinued. Bone scan was negative for osteomyelitis. Vascular surgery was consulted and recommended no further intervention. Case was discussed with Dr. Munguia recommended doxycycline for 10 days along with outpatient vascular surgery follow-up. Pertinent studies include foot x-ray, nuclear bone scan. Patient was seen and examined. No acute events overnight. Patient reports well controlled pain in his right foot. He has no other complaints today. General: non toxic, no distress, appears at stated age Derm: warm, dry Head: atraumatic, normocephalic, symmetric Eyes: EOMI, no lid lag, anicteric sclera Mouth: no lip lesion, mucus membranes moist Cardiovascular: S1S2 reg, no murmur Lungs: CTA bilateral, no rhonchi, no rales , no accessory muscle use Ext: no gross muscle atrophy, no edema, no contractures, left lower extremity AKA, swelling along the medial aspect of the right foot Neuro: no focal neuro deficits Psych: Alert, oriented, appropriate affect Discharge diagnosis: #SIRS #Right foot swelling #Lactic acidosis #Severe PAD #Normocytic anemia Chronic conditions: CAD, hypertension, dyslipidemia, BPH This complex discharge took about 35 minutes to complete. Patient Condition at Discharge: Stable Plan - Discharge Summary Discharge Rx Participant: Yes New Discharge Prescriptions: New HYDROcodone/APAP 5-325MG [Mclaughlin 5-325] 1 each PO Q4HR PRN #18 tab PRN Reason: Moderate Pain (Scale 4 To 6) Doxycycline [Vibramycin] 100 mg PO BID 10 Days #20 capsule Continue Losartan Potassium [Cozaar] 25 mg PO DAILY Metoprolol Succinate [Toprol XL] 25 mg PO DAILY Atorvastatin [Lipitor] 40 mg PO DAILY Aspirin EC [Ecotrin Low Dose] 81 mg PO DAILY Tamsulosin HCl [Flomax] 0.4 mg PO DAILY Discharge Medication List Aspirin EC [Ecotrin Low Dose] 81 mg PO DAILY 06/19/21 [History] Atorvastatin [Lipitor] 40 mg PO DAILY 06/19/21 [History] Metoprolol Succinate [Toprol XL] 25 mg PO DAILY 06/19/21 [History] Tamsulosin HCl [Flomax] 0.4 mg PO DAILY 04/14/22 [History] Losartan Potassium [Cozaar] 25 mg PO DAILY 04/28/22 [History] Doxycycline [Vibramycin] 100 mg PO BID 10 Days #20 capsule 04/30/22 [Rx] HYDROcodone/APAP 5-325MG [Mclaughlin 5-325] 1 each PO Q4HR PRN #18 tab 04/30/22 [Rx] Follow up Appointment(s)/Referral(s): [facility] [NON-STAFF] - As Needed Roberto Mejias MD [Primary Care Provider] - 1-2 days Bam Jimenez DO [STAFF PHYSICIAN] - 1 Week Activity/Diet/Wound Care/Special Instructions: Diet: Cardiac FU with PCP within 1-2 days of DC. FU with Vascular Surgery Dr. Jimenez or your vascular surgeon in [place] within 1 week of DC. Take all medications as advised. Discharge Disposition: HOME SELF-CARE
[2022-04-30 14:56] VITALS: BP 179/79; PULSE 66; RESP 18
--- NOTE | 2022-05-07 22:59 | P.PN ---
Subjective Progress Note Date: 04/30/22 Principal diagnosis: Right big toe infection and question of possible osteomyelitis Patient is a 81-year-old -[place] male with a past medical history significant for severe PAD in this patient who is status post left [id number] amputation presenting to the hospital with left big toe pain and swelling and concern for possible cellulitis with abnormal x-ray suspicious forOsteomyelitis however the bone scan completed subsequently has been negative. On today's evaluation that is 04/30/2022, the patient remains to be afebrile, the patient is breathing comfortably , the patient denies chest pain shortness of breath or cough no abdominal pain pain to the right big toe and foot has decreased intensity and no drainage Objective - Vital Signs Vital signs: Vital Signs Temp 97.9 F 04/30/22 07:53 Pulse 70 04/30/22 07:53 Resp 16 04/30/22 07:53 BP 169/79 04/30/22 07:53 Pulse Ox 95 04/30/22 07:53 FiO2 Intake & Output 04/29/22 04/30/22 04/30/22 18:59 06:59 18:59 Intake Total 480 Output Total 400 950 150 Balance 80 -950 -150 Weight 58.967 kg Intake: Oral 480 Output: Urine 400 950 150 Other: Voiding Method Bedpan Urinal # Voids 3 1 # Bowel Movements 6 - Exam GENERAL DESCRIPTION: An elderly male lying in bed in no distress RESPIRATORY SYSTEM: Unlabored breathing , decreased breath sounds at bases HEART: S1 S2 regular rate and rhythm , ABDOMEN: Soft , no tenderness EXTREMITIES: Right big toe and minimal swelling no significant redness no redness or tenderness on the dorsal aspect of the right foot - Labs CBC & Chem 7: 04/29/22 04:07 04/30/22 07:05 Labs: Microbiology - Last 24 Hours (Table) 04/28/22 14:03 Blood Culture - Preliminary Blood No Growth after 24 hours 04/28/22 14:03 Blood Culture - Preliminary Blood No Growth after 24 hours Assessment and Plan (1) Cellulitis of foot, right Status: Acute Code(s): L03.115 - CELLULITIS OF RIGHT LOWER LIMB SNOMED Code(s): 657729745 Plan: 1patient presented to hospital with right big toe pain swelling and redness in this patient who did have history of significant peripheral arterial disease he did have abnormal x-ray describing abnormality in the midfoot with the patient main symptom remains to be right big toe currently do not have any open wound to the right midfoot area 2patient bone scan was negative for osteomyelitis. 3vascular surgery once the patient to follow-up with his surgeon Alphonse Phillips antibiotic switch her to oral doxycycline and advised to follow with his vascular surgeon soon Time with Patient: Less than 30
== END 2022-04-30 16:35 | disposition home or self-care (01) ==
LOC: EC 13:11 → INTOOBSV 15:30 → 4SSUR 15:30 → UNDODISIN 04-30 16:35
PROVIDERS: ADMIT Internal Medicine; ATTEND Internal Medicine
DX: L03.115 Cellulitis of right lower limb (principal); E87.20 Acidosis, unspecified; L89.619 Pressure ulcer of right heel, unspecified stage; I73.9 Peripheral vascular disease, unspecified; R74.01 Elevation of levels of liver transaminase levels; I10 Essential (primary) hypertension; E78.5 Hyperlipidemia, unspecified; D64.9 Anemia, unspecified; I25.10 Atherosclerotic heart disease of native coronary artery without angina pectoris; M19.90 Unspecified osteoarthritis, unspecified site; N40.0 Benign prostatic hyperplasia without lower urinary tract symptoms; Z79.82 Long term (current) use of aspirin; Z79.899 Other long term (current) drug therapy; Z88.1 Allergy status to other antibiotic agents; Z87.891 Personal history of nicotine dependence; Z98.41 Cataract extraction status, right eye; Z98.42 Cataract extraction status, left eye; Z89.612 Acquired absence of left leg above knee; Z95.828 Presence of other vascular implants and grafts; Z98.890 Other specified postprocedural states; Z82.49 Family history of ischemic heart disease and other diseases of the circulatory system
CPT/HCPCS: 96361 ×2; 96366 ×3; 96367; 96372 ×2; 96365; 99284; 36415; 97162; 97166; 80053; 80048; 85652; 82565; 83605; 83735; 85025 ×2; 85610; 85730; 86140; 87040; 73630; 78315; G0378 ×3; A9503; J2543; J3370 ×3; J1650 ×2; 87324